=== PATIENT | male | born 1960 | race Caucasian/White ===

== ENCOUNTER 2017-04-12 10:45 | Inpatient (IN) ==
[2017-04-12] MEDS ORDERED: XOPENEX NEB INH ONE (11:04)
[2017-04-12] MEDS ORDERED: SOLU-MEDROL IV ONE (11:05)
[2017-04-12] MEDS ORDERED: ATROVENT NEB INH ONE (11:05)
[2017-04-12] MEDS ORDERED: NS NEB INH SCH (11:15)
[2017-04-12 11:24] LABS: BE 2.4 mmoll (-3.0-3.0); BLOOD TYPE ARTERIAL; METHB 0.9 % (0.0-1.5); O2(CT) 18.2 mL/dL (15.0-23.0); PCO2(98.6) 32 mmHg (35-45); PO2(98.6) 68 mmHg (60-100); SAMPLE BLOOD; SAO2 96.9 % (95.0-100.0)
[2017-04-12 11:25] LABS: MODALITY ROOM AIR
[2017-04-12 11:47] LABS: MANUAL DIFF NEEDED? NO
--- NOTE | 2017-04-12 11:50 | Diag Imaging Result Doc PS360 ---
EXAM: CHEST-2 VIEWS - 04/12/2017 HISTORY: dyspnea TECHNIQUE: Chest two views COMPARISON: Portable exam of 04/10/2017 FINDINGS: Heart size appears within normal limits. There are increased opacities at the bilateral bases and there has been development of small bilateral pleural effusions. The upper lungs remain essentially clear. There is no pneumothorax identified. IMPRESSION: Increased opacities at bilateral lung bases with development of small bilateral pleural effusions. These may relate to pulmonary edema or pneumonia. Correlation with clinical evaluation is recommended. Electronically signed by Osei Almonte 04/12/2017 11:47 AM
[2017-04-12 11:51] LABS: BASO% 0.3 % (0.0-0.8); EOS# 0.03 X1000 (0.0-0.7); EOS% 0.3 % (0.0-10.0); HEMATOCRIT 37.8 % (42.0-52.0); HEMOGLOBIN 13.7 g/dL (14.0-18.0); LYMPH# 2.24 X1000 (1.2-3.4); LYMPH% 23.8 % (20.5-51.1); MCH 37.5 PG (27-31); MCHC 36.2 g/dL (33-37); MCV 103.6 FL (81-99); MONO# 0.61 X1000 (0.11-0.59); MONO% 6.5 % (1.7-9.3); MPV 9.9 FL (7.4-10.4); NEUT% 69.1 % (42.2-75.2); PLT 184 X1000 (130-400); RBC 3.65 XMIL (4.7-6.1)
[2017-04-12 11:52] LABS: INR 0.96; PROTIME 10.1 Seconds (9.2-11.7); PTT 26.1 Seconds (22.0-36.0)
[2017-04-12] MEDS ORDERED: LASIX IV ONE (11:52)
--- NOTE | 2017-04-12 12:02 | PROVIDER DOCUMENTATION ---
This chart was entered by Ruby Mccurdy Scribe, acting as scribe for Milo Salinas MD. HPI-Respiratory General - General Chief Complaint: Chest Pain Stated Complaint: SOB,COPD Time Seen by Provider: 04/12/17 11:00 Source: patient Allergies/Adverse Reactions: Patient Allergies Allergy/AdvReac Type Severity Reaction Status Date / Time No Known Allergies Allergy Verified 04/10/17 06:27 Home Medications: Home Medication List Medication Instructions Recorded Confirmed Last Taken Type Dm Hb/PE/Acetaminophen/Chlorph 237 ml PO TID #1 oral.susp 04/10/17 Unknown Rx [Adlt Robitussin Rrmfa-Bmgo-Ipl] Ipratropium [place] Neb [Atrovent 0.5 mg .SEE ORDER BID #1 neb 04/10/17 Unknown Rx Neb] - History of Present Illness-Resp Nature of Presenting Problem: PT is a 57 year old male who came to the ED with a cc of SOB and being in the ED three times in the last 24 hours. Pt is a smoker. Quality of Pain: reports: none Severity in ED: reports: mild Onset/Duration: reports: 3 days ago Timing: reports: still present Cough Quality/Degree: reports: moderate Episode Frequency: frequent episodes Modifying Factors: improves with: nothing Associated Symptoms: reports: shortness of breath, short of breath, wheezing Similar Symptoms Previously?: Yes Recently seen or treated by another doctor?: Yes Review of Systems - Adult - REVIEW OF SYSTEMS - ADULT Constitutional: denies: chills, fever Eyes: reports: no symptoms reported Ears, Nose, Mouth & Throat: reports: no symptoms reported Cardiovascular: denies: chest pain, syncope Respiratory: reports: cough, shortness of breath, wheezing. denies: dyspnea on exertion, hemoptysis Gastrointestinal: denies: diarrhea, frequent heartburn, vomiting Genitourinary: reports: no symptoms reported Musculoskeletal: reports: muscle weakness. denies: joint swelling, neck pain Integumentary: reports: no symptoms reported Neurological: reports: no symptoms reported Psychiatric: reports: no symptoms reported Endocrine: reports: no symptoms reported Hematologic/Lymphatic: reports: no symptoms reported Allergic/Immunologic: reports: no symptoms reported All Other Systems: Reviewed and Negative Past History - Adult - PAST MEDICAL HISTORY-ADULT Review of Records: reports: Old Records Reviewed, Nursing Assessment Review Major Childhood Illnesses: reports: denies history Cardiovascular: reports: denies history Respiratory: reports: denies history Gastrointestinal: reports: denies history Obstetrical/Gynecological: reports: denies history Genitourinary: reports: denies history Musculoskeletal: reports: denies history Neurological: reports: denies history Psychiatric: reports: denies history Endocrine/Immune: reports: denies history Other Conditions: reports: denies history - PRIOR SURGERIES/PROCEDURES Surgical/Procedure History: reports: none - IMMUNIZATION STATUS Childhood Immunizations: See Nurse Assessment Flu Vaccine: See Nurse Assessment - FAMILY HISTORY Family History: reviewed, not pertinent - SOCIAL HISTORY Smoking: cigarettes Provider spent 3-5 mins advising pt. on dangers of tobacco.: Discussed manners to quit use, and f/u contacts for add'l counseling. Physical Exam-General - PHYSICAL EXAM-ADULT Initial Vital Signs Reviewed: Yes - CONSTITUTIONAL General Appearance: mild distress, thin - EYES Eyes: PERRL/EOMI, pink conjunctivae - HEAD, EARS, NOSE, MOUTH & THROAT HENMT: normocephalic/atraumatic, moist mucous membranes - NECK Neck: non-tender, full range of motion - RESPIRATORY Respiratory: crackles, wheezing - CARDIOVASCULAR Cardiovascular: normal peripheral pulses, regular rate, rhythm - GASTROINTESTINAL (ABDOMEN) Abdominal Exam: normal bowel sounds, non tender, soft - MUSCULOSKELETAL Back Exam: normal inspection, no CVA tenderness Extremity: normal range of motion, non-tender - SKIN Integumentary: normal color, normal turgor - NEUROLOGIC Neurologic: grossly normal - PSYCHIATRIC Psych/Mental Status: normal mood/affect, normal thought content, normal thought process, oriented x 3 Progress - PLAN OF CARE/RESULTS Progress/Plan/Lab Results: Vital Signs - 8 hr 04/12/17 10:49 04/12/17 11:26 Temperature 97.7 F Pulse Rate 141 H 141 H Respiratory Rate 22 22 Blood Pressure 131/109 O2 Sat by Pulse Oximetry 99 Laboratory Results - last 24 hr 04/12/17 04/12/17 04/12/17 11:05 11:25 11:25 WBC RBC Hgb Hct MCV MCH MCHC RDW Std Deviation Plt Count MPV Neut % (Auto) Lymph % (Auto) Harvey % (Auto) Eos % (Auto) Baso % (Auto) Neut # (Auto) Lymph # (Auto) Harvey # (Auto) Eos # (Auto) Baso # (Auto) PT 10.1 INR 0.96 PTT (Actin FS) 26.1 Specimen Type ARTERIAL pH 7.50 H pCO2 32 L pO2 68 HCO3 26.7 H Base Excess 2.4 Oxyhemoglobin 92.3 L ABG O2 Sat (Calculated) 18.2 ABG O2 Saturation 96.9 ABG Carboxyhemoglobin 3.90 H ABG Methemoglobin 0.9 Total Hemoglobin 14.0 Lactate 1.60 Blood Gas Modality ROOM AIR FiO2 % 21.0 Troponin T < 0.010 04/12/17 11:25 WBC 9.40 RBC 3.65 L Hgb 13.7 L Hct 37.8 L MCV 103.6 H MCH 37.5 H MCHC 36.2 RDW Std Deviation 13.0 Plt Count 184 MPV 9.9 Neut % (Auto) 69.1 Lymph % (Auto) 23.8 Harvey % (Auto) 6.5 Eos % (Auto) 0.3 Baso % (Auto) 0.3 Neut # (Auto) 6.49 Lymph # (Auto) 2.24 Harvey # (Auto) 0.61 H Eos # (Auto) 0.03 Baso # (Auto) 0.03 PT INR PTT (Actin FS) Specimen Type pH pCO2 pO2 HCO3 Base Excess Oxyhemoglobin ABG O2 Sat (Calculated) ABG O2 Saturation ABG Carboxyhemoglobin ABG Methemoglobin Total Hemoglobin Lactate Blood Gas Modality FiO2 % Troponin T Orders Category Date Time Status IV Insertion ORDERED Care 04/12/17 11:01 Completed CHEST-2 VIEWS [RAD] Stat Exams 04/12/17 11:03 Completed ABG [RESP] Routine Lab 04/12/17 11:05 Results CBC WITH DIFF [HEME] Stat Lab 04/12/17 11:25 Completed COMPREHENSIVE METABOLIC PANEL [CHEM] Stat Lab 04/12/17 11:25 Received PRO B-NATRIURETIC PEPTIDE Stat Lab 04/12/17 11:25 Received PROTIME WITH INR [COAG] Stat Lab 04/12/17 11:25 Completed PTT [COAG] Stat Lab 04/12/17 11:25 Completed TROPONIN T Stat Lab 04/12/17 11:25 Completed Furosemide [Lasix] Med 04/12/17 11:52 Discontinued 60 mg IV NOW ONE Ipratropium [place] Neb [Atrovent Neb] Med 04/12/17 11:05 Discontinued 0.5 mg INH NOW ONE Levalbuterol Neb [Xopenex Neb] Med 04/12/17 11:04 Discontinued 1.25 mg INH NOW ONE Methylprednisolone Sod Succ [Solu-Medrol] Med 04/12/17 11:05 Discontinued 125 mg IV NOW ONE Sodium Chloride 0.9% Neb [Ns Neb] Med 04/12/17 11:15 Active 5 ml INH DIRECTED Aerosol Treatments Routine Oth 04/12/17 11:04 Completed Aerosol Treatments Stat Oth 04/12/17 11:04 Completed EKG [EKG] Stat Ther 04/12/17 10:53 Ordered Result Diagrams: 04/12/17 11:25 - EKG 1 Time of EKG reading by physician:: 10:49 EKG Read and Signed by:: Milo Salinas EKG Interpretation (*Must complete 3 of following elements*): Abnormal Rate: 134 (w premature ventricular or aberrantly conducted complexes ) Rhythm: atrial fibrillation w rapid ventricular response Departure - Departure Date of Disposition Decision: 04/12/17 Time of Disposition Decision: 12:01 DIAGNOSIS: COPD (chronic obstructive pulmonary disease), CHF (congestive heart failure) Disposition: ADMITTED INPATIENT 09 Certified Medical Emergency: Emergent Condition: Stable Referrals and Follow-Ups: None,PCP [Primary Care Provider] - - Critical Care Note This patient required my direct & personal management of CC.: No Attestation - Physician/ DALIA Attestation The physician spent face to face time with patient:: Yes Advanced Practice Provider documentation review:: Supervising physician onsite and consulted in the evaluation and care of this patient. The physician did have a face to face encounter with the patient. This chart was documented by the indicated scribe, (Ruby Mccurdy Scribe) and accurately reflects the services I performed and decisions made by Rita beltre Christophe I, MD, as attested by the provider's signature.
[2017-04-12 12:09] LABS: AGAP 15; ALBUMIN 4.2 g/dL (3.5-5.0); ALKALINE PHOSPHATASE 58 U/L (32-122); BUN 11 mg/dL (8-22); CALCIUM 9.1 mg/dL (8.8-10.2); CHLORIDE 102 mmol/L (98-107); COSMO 285; GOT 39 U/L (10-34); GPT 33 U/L (10-44); POTASSIUM 3.7 mmol/L (3.5-5.1); SODIUM 143 mmol/L (136-145); TCO2 26 mmol/L (25-35); TOTAL BILIRUBIN 0.79 mg/dL (0.20-1.00); TOTAL PROTEIN 7.6 g/dL (6.3-8.3)
[2017-04-12] MEDS: ROCEPHIN 1 GM/NS 1 GM/50 ML IVPB IV SCH (13:02)
[2017-04-12] MEDS ORDERED: DUONEB (A & A) INH PRN (14:21)
[2017-04-12] MEDS ORDERED: SODIUM CHLORIDE 0.9% INJ SCH (14:21)
--- NOTE | 2017-04-12 14:38 | HISTORY AND PHYSICAL ---
PRIMARY CARE PHYSICIAN: Unknown. CHIEF COMPLAINT: Shortness of breath. 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 The patient reports that he was here for shortness of breath 3 days ago in the ER, and he was offered to be admitted but he declined. He reports approximately 1-2 weeks ago he noticed progressive shortness of breath that was getting progressively worse. He also noticed some sensation of palpitation like his heart was racing and also he noticed some chest tightness. He noticed that was getting better when he received breathing treatments. He denies any fevers or chills. He reports coughing whitish and greenish sputum. Here in the ER he was found to have very short of breath. He also was found to have a new onset atrial fibrillation with heart rate of 140s. The patient is going to be admitted to the hospital for further evaluation and treatment. PAST MEDICAL HISTORY: The patient reports that 15 years ago he developed endocarditis and he got a residual mitral valve tear. He was supposed to have a followup with a interior design program chair but he never went to see anybody. PAST SURGICAL HISTORY: None. ALLERGIES: No known drug allergies. SOCIAL HISTORY: He used to drink vodka and lastly beer 1 case per day but he reports that he quit 1 month ago. He smokes 1-2 packs per day for the last 3 years. He is not using any drugs anymore. He quit taking Lortab 2 years ago. He reports using cocaine but he quit in the 80s. 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 Patient lives alone. He is . REVIEW OF SYSTEMS: Patient reports having episodes of paroxysmal nocturnal dyspnea. Patient unable to lie in a flat position for sleeping and he was able to sleep well for the last 2-3 days. He noticed mild swelling in both lower extremities. PHYSICAL EXAMINATION: VITALS: Temperature 97.7 degrees, heart rate 141, respiratory rate 22, blood pressure 131/109, O2 saturations 99% on room air. GENERAL EXAMINATION: This is a 57-year-old male, lying in bed, in no acute distress. HEENT: Head is normocephalic and atraumatic. Anicteric sclerae and pale conjunctivae. Mucous membranes moist. NECK: Supple. No JVD noted. No carotid bruits. No lymphadenopathy. No thyromegaly. CARDIOVASCULAR EXAM: S1, S2 heard. Irregularly irregular heart rhythm. Tachycardic. There is a systolic murmur in the mitral area 3/6. RESPIRATORY: Decreased breath sounds globally with some prolonged respiratory phase. Mild wheezing in both bases. No crackles noted. Patient is not using any accessory muscles or having work of breathing. ABDOMEN: Soft, nontender to palpation. Bowel sounds present. No organomegaly. EXTREMITIES: No clubbing or cyanosis. Mild edema of 1+ in both lower extremities. Peripheral pulses present in both legs. NEUROLOGICAL EXAM: Patient alert and oriented x3. Moves 4 extremities. Cranial nerves 2-12 grossly normal. LABORATORY DATA: Hemoglobin 13.7, hematocrit 37.8, with ABG 7.5, pCO2 32, and BMP unremarkable with proBNP of 2765. ASSESSMENT AND PLAN: 1. Chronic obstructive pulmonary disease exacerbation. Patient is going to be admitted to the hospital. He is going to be provided DuoNeb every 4 hours. Also he is going to be provided steroids, in this case, Solu-Medrol 40 mg IV b.i.d., and also ceftriaxone for any possible infection. Because of his progressive history of chronic obstructive pulmonary disease and patient was not mobile, I prefer to check angiogram of the pulmonary arteries to rule out any pulmonary embolism and also to check the anatomy of the lungs. 2. 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 Patient reports that 15 years ago he had a really bad tooth infection that finally became bacteremia and he ended up having endocarditis. He had a mild mitral valve regurgitation and he was supposed to follow with Cardiology but he never did that. We are going to check an echocardiogram. We are going to consult Cardiology. 3. New onset atrial fibrillation. I think this condition is secondary to this mitral valve problem. We are going to start this patient on Cardizem drip. We are going to start anticoagulation on this patient. We will consult Cardiology. 4. Further recommendations to follow according to the clinical situation of the patient. cc: Harsh Lira MD [facility]
[2017-04-12] MEDS: CARDIZEM 100 MG/NS 100 MG/100 ML IVPB IV SCH (14:57)
[2017-04-12] MEDS: NS 1,000 ML IV SCH (14:57)
[2017-04-12] MEDS: PROTONIX IV SCH (14:57)
--- NOTE | 2017-04-12 14:57 | Diag Imaging Result Doc PS360 ---
EXAM: ANGIOGRAM/PULMONARY ARTERIES - 04/12/2017 HISTORY: suspected PE TECHNIQUE: With intravenous contrast. Axial, reformatted coronal comment and reformatted 3-D rotating MIP images. Dose reduction protocol. COMPARISON: None. FINDINGS: There are no filling defects identified in the pulmonary arteries. There is no indication of aortic dissection. There is cardiomegaly. There are mild COPD changes. There are mild interstitial edema, ill-defined infiltrates at the lung bases, small bilateral pleural effusions. There is no pneumothorax seen. IMPRESSION: No evidence of pulmonary embolism. Findings which are suggestive of mild pulmonary edema/congestive heart failure. Basilar pneumonia cannot be entirely excluded. Mild emphysematous changes. Electronically signed by Osei Almonte 04/12/2017 2:55 PM
[2017-04-12] MEDS: SOLU-MEDROL IV SCH ×2 (15:12→20:04)
[2017-04-12] MEDS: DUONEB (A & A) INH SCH ×3 (15:34→23:35)
[2017-04-12] MEDS: NICODERM PATCH TD SCH (15:36)
[2017-04-13] MEDS: NS 1,000 ML IV SCH ×2 (02:46→17:07)
[2017-04-13] MEDS: CARDIZEM 100 MG/NS 100 MG/100 ML IVPB IV SCH ×2 (02:46→16:32)
[2017-04-13] MEDS: DUONEB (A & A) INH SCH ×6 (03:20→23:15)
[2017-04-13 03:53] LABS: ALLEN TEST YES; DRAW SITE R RADIAL
[2017-04-13] MEDS ORDERED: MOTRIN PO ONE (05:15)
[2017-04-13 05:20] LABS: MANUAL DIFF NEEDED? NO
[2017-04-13 05:24] LABS: BASO% 0.1 % (0.0-0.8); IMM GRAN# 0.02 X1000 (0.0-0.04); IMM GRAN% 0.2 % (0.0-0.5); LYMPH# 1.21 X1000 (1.2-3.4); LYMPH% 13.4 % (20.5-51.1); MCH 35.7 PG (27-31); MCHC 35.1 g/dL (33-37); MCV 101.6 FL (81-99); MONO# 0.48 X1000 (0.11-0.59); MONO% 5.3 % (1.7-9.3); MPV 9.8 FL (7.4-10.4); PLT 177 X1000 (130-400); RBC 3.64 XMIL (4.7-6.1)
[2017-04-13 05:59] LABS: AGAP 16; BUN 19 mg/dL (8-22); CALCIUM 8.8 mg/dL (8.8-10.2); CHLORIDE 100 mmol/L (98-107); COSMO 289; POTASSIUM 3.8 mmol/L (3.5-5.1); SODIUM 142 mmol/L (136-145); TCO2 26 mmol/L (25-35)
[2017-04-13] MEDS ORDERED: PNEUMOVAX 23 IM ONE (07:00)
[2017-04-13] MEDS: NICODERM PATCH TD SCH (08:03)
[2017-04-13] MEDS: SOLU-MEDROL IV SCH ×2 (08:03→20:17)
[2017-04-13] MEDS ORDERED: LOVENOX SUBQ SCH (08:45)
[2017-04-13] MEDS: ZITHROMAX 500 MG/NS 500 MG/250 ML IVPB IV SCH (10:07)
[2017-04-13] MEDS: LASIX IV SCH ×2 (10:07→20:17)
[2017-04-13] MEDS ORDERED: LOVENOX SUBQ ONE (10:45)
[2017-04-13] MEDS: ROCEPHIN 1 GM/NS 1 GM/50 ML IVPB IV SCH (12:17)
[2017-04-13] MEDS: PROTONIX IV SCH (12:17)
[2017-04-13] MEDS: CARDIZEM PO SCH ×2 (12:18→17:07)
[2017-04-13] MEDS: VITAMIN B-1 PO SCH (12:18)
--- NOTE | 2017-04-13 18:04 | CONSULTATION ---
DATE OF CONSULTATION: 04/13/2017 IMPRESSION: 1. Dyspnea. 2. Chronic obstructive pulmonary disease. 3. Acute congestive heart failure suggested. 4. Mitral regurgitation. 5. Previous endocarditis of mitral valve fifteen years ago associated with dental infection. 6. Chronic cigarette use. Recently discontinued. 1. Alcoholism. Patient has been sober 30 days. He has attempted to abstain on 3 occasions in the past, but has gone back to drinking. 2. 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 3. Atrial fibrillation, new onset. The patient has history of episodes of palpitations in the past, but has now demonstrated persistent atrial fibrillation. RECOMMENDATIONS: 1. Diuresis. 2. Control heart rate with intravenous Cardizem. 3. Anticoagulate with Lovenox initially. 4. Echocardiography to reassess mitral regurgitation. 5. Treat chronic obstructive pulmonary disease as well. 6. Followup chest x-ray. 7. Patient counseled at length regarding need for maintenance of sobriety. 8. Cessation of tobacco use also discussed at length with the patient. Suggest utilizing nicotine patch Supplanted with more rapid nicotine delivery system when he goes home, such as nicotine lozenges, nicotine gum, or even Vape device. HISTORY: This 57-year-old white male with past history of longstanding cigarette use, alcoholism, previous endocarditis of mitral valve fifteen years ago in setting of dental infection and mitral regurgitation was admitted with recurrent dyspnea. He relates he has been having problems with progressive dyspnea over the past week. He might note some chest pressure if he was lying down. He also noted persistent palpitations. He has had episodic palpitations in the past. He has history of alcoholism, but discontinued alcohol a month ago. He just recently stopped smoking. He came to the emergency room with dyspnea symptoms a few days ago and was treated with bronchodilator and corticosteroids. He is noted to be in atrial fibrillation with rapid ventricular rate and was administered medications to control his heart rate. He started to feel better in the emergency room and chose not to be admitted when this was advised. He went home and continued to feel better. However, within 24 hours, he had resume cigarette use and started progressive dyspnea symptoms yet again. With worsening dyspnea, he finally came back in and accepted admission. He is again noted to be in atrial fibrillation with rapid ventricular rate and has been started on intravenous Cardizem for rate control. Clinical findings suggested both COPD and congestive heart failure. He is being treated with bronchodilators and being diuresed. Cardiology consultation requested. Echocardiography is pending. PAST MEDICAL HISTORY: 1. COPD. 2. Mitral regurgitation. 3. Previous endocarditis mitral valve fifteen years ago in association with dental abscess. 4. Alcoholism. Patient has been sober for 30 days now. 5. History of asbestos exposure in the past related to his work. PAST SURGICAL HISTORY: None. ALLERGIES: He has no known drug allergies. 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 He previously drank vodka and lastly drink a case of beer a day. He discontinued alcohol use 1 month ago and is attending AA meetings several times a week. He has a sponsor. He has smoked 1-2 packs of cigarettes per day. He discontinued cigarette use just a few days ago. He has remote history of using cocaine. He is . He has a son who is currently attending [employer]. FAMILY HISTORY: Positive for alcoholism. REVIEW OF SYSTEMS: Pulmonary: Noteworthy for dyspnea and some nonproductive cough. Gastrointestinal: Noncontributory. Constitutional: Noncontributory. There has been no fever or shaking chills. Remainder of review of systems negative/noncontributory beyond history present illness with 14 total systems reviewed. PHYSICAL EXAMINATION: General: Reveals a middle-aged male in no distress. Vital signs: Blood pressure 110/75, heart rate 91 and regular, with ECG monitor showing atrial fibrillation with controlled rate. Oxygen saturation 96% on room air. HEENT: Extraocular movements appear intact. Mucous membranes are moist. Neck: Supple without discernible jugular venous distention. There are no carotid bruits. Chest: Auscultation of the chest reveals bibasilar late inspiratory crackles which were somewhat fine in nature. Cardiac: Reveals an irregular rate and rhythm with a grade 2/6 holosystolic murmur at the left ventricular apex which radiates to the axilla. No gallop could be appreciated. Abdomen: Soft, nontender. Extremities: Without edema. Neurologic: Reveals him to be alert, fully oriented. Speech is fluent. Moves all 4 extremities equally well. Skin: Warm and dry. Psychiatric: Reveals mood to be appropriate. ECG demonstrates atrial fibrillation with heart rate of 120 beats per minute. There are occasional premature ventricular aberrantly conducted complexes. Abnormal precordial R-wave progression demonstrated. Cannot rule out previous anterior infarct of undetermined age. cc: Yousuf Paige MD
--- NOTE | 2017-04-13 18:33 | PROGRESS NOTE ---
DATE: 04/13/2017 SUBJECTIVE: Patient reports feeling less short of breath. Denies any chest discomfort. No fever or chills reported. OBJECTIVE: Vital Signs: Temperature 97.9 degrees, with the heart rate 91, respiratory rate 18, blood pressure 110/75. O2 saturation 98% on room air. PHYSICAL EXAMINATION: General: This is a 57-year-old male, lying in bed, in no acute distress. HEENT: Head is normocephalic, atraumatic. Anicteric sclerae and pale conjunctivae. Mucous membranes moist. Neck: Supple. No JVD noted. No carotid bruits. No lymphadenopathy. No thyromegaly. Cardiovascular: S1, S2 heard. Irregularly irregular heart rhythm. Tachycardic, no murmurs, gallops or rubs. Respiratory: Decreased breath sounds globally with prolonged respiratory phase. Mild crackles noted. The patient is not using any accessory muscles or having work of breathing. Abdomen: Soft, nontender to palpation. Bowel sounds present. No organomegaly. Extremities: No clubbing, cyanosis, or edema. Peripheral pulses present in both legs. Neurological: Patient alert oriented x3. Moves 4 extremities. LABORATORY DATA: CBC and BMP are completely unremarkable and proBNP from yesterday is 2765. ASSESSMENT AND PLAN: 1. Chronic obstructive pulmonary disease exacerbation. Patient is on DuoNeb every 4 hours, as well as Solu-Medrol 40 mg IV b.i.d., but now is not requiring any oxygen. 2. Bibasilar pneumonia finding showed in the x-ray in the CT angio of the chest. We are going to continue with ceftriaxone and azithromycin. Patient is not spiking any fever and white cell count is within normal limits. 3. Mitral valve 2 years ago. There is no pruritus. Echocardiogram and also cardiology consultation are still pending. 4. New onset atrial fibrillation. I think this condition is secondary to his mitral valve problem. We will continue with Cardizem drip as previous at 7.5 mg/hour. We will continue with the same management. 5. Deep vein thrombosis prophylaxis with Lovenox. 6. Further recommendations to follow according to the clinical situation. cc: Harsh Lria MD
[2017-04-13] MEDS: LOVENOX SUBQ SCH (21:06)
--- NOTE | 2017-04-13 21:57 | ECHO REPORT ---
ORDER DATE: 04/12/2017 MEASUREMENTS: Left ventricular end-diastolic diameter 6.4 and systolic diameter 4.3, posterior wall thickness 1, septal thickness 0.6, left atrium 4.5, aortic root 3.2. SUMMARY: 1. Adequate quality study. 2. Aortic valve is trileaflet and opens normally on 2-dimensional images. Mitral valve is abnormal with dense echodensity adherent near the tip of the posterior mitral leaflet measuring 1.4 x 0.3 cm and flopping into left atrium during diastole consistent with disrupted portion of posterior mitral leaflet secondary to previous endocarditis patient known to have had. There is associated moderate to severe mitral regurgitation. Tricuspid valve without structural abnormality with mild to moderate tricuspid regurgitation. Estimated systolic PA pressure by Doppler is 50 mmHg. Pulmonic valve is without structural abnormality. Aortic root is normal size. 3. Mild to moderate left ventricular enlargement demonstrated with normal wall thickness. Estimated left ventricular ejection fraction appears to be at least 65%. No regional wall motion abnormalities are evident. Left atrium is [id number] enlarged. Right atrium is mildly enlarged. The right ventricle is normal size with normal right ventricular systolic function. 4. No pericardial effusion. 5. Appearance of inferior vena cava suggests normal central venous pressure. 6. Atrial fibrillation during study. CONCLUSIONS: 1. Abnormal mitral valve with what appears to be disrupted portion of posterior mitral leaflet secondary to previous endocarditis and associated moderate to severe mitral regurgitation. 2. Mild to moderate tricuspid regurgitation with moderate pulmonary hypertension by Doppler. 3. Mild to moderate left ventricular enlargement with normal left ventricular ejection fraction. 4. Biatrial enlargement. 5. Appearance of inferior vena cava suggests elevated central venous pressure. 6. Atrial fibrillation during study. cc: MD Harsh Marvin MD
[2017-04-14] MEDS: DUONEB (A & A) INH SCH ×5 (03:05→22:27)
[2017-04-14 05:11] LABS: MANUAL DIFF NEEDED? NO
[2017-04-14 05:19] LABS: BASO% 0.1 % (0.0-0.8); HEMATOCRIT 34.8 % (42.0-52.0); HEMOGLOBIN 12.1 g/dL (14.0-18.0); IMM GRAN# 0.04 X1000 (0.0-0.04); IMM GRAN% 0.4 % (0.0-0.5); LYMPH# 1.49 X1000 (1.2-3.4); LYMPH% 13.4 % (20.5-51.1); MCH 36.1 PG (27-31); MCHC 34.8 g/dL (33-37); MCV 103.9 FL (81-99); MONO% 4.5 % (1.7-9.3); MPV 10.1 FL (7.4-10.4); NEUT% 81.6 % (42.2-75.2); PLT 197 X1000 (130-400); RBC 3.35 XMIL (4.7-6.1)
[2017-04-14 05:36] LABS: AGAP 13; BUN 22 mg/dL (8-22); CALCIUM 8.6 mg/dL (8.8-10.2); CHLORIDE 102 mmol/L (98-107); COSMO 289; POTASSIUM 3.5 mmol/L (3.5-5.1); SODIUM 141 mmol/L (136-145); TCO2 26 mmol/L (25-35)
[2017-04-14] MEDS: CARDIZEM 125/NS 125 MG/125 ML IVPB IV SCH ×2 (05:46→18:26)
[2017-04-14] MEDS: NS 1,000 ML IV SCH ×2 (05:46→19:05)
--- NOTE | 2017-04-14 06:46 | EKG Report ---
Test Performed on : 04/12/2017 10:49:58 AM Test Reason : SOB Blood Pressure : / mmHG Vent. Rate : 134 BPM Atrial Rate : 141 BPM P-R Int : 000 ms QRS Dur : 090 ms QT Int : 308 ms P-R-T Axes : 000 084 030 degrees QTc Int : 459 ms Atrial fibrillation. with rapid ventricular response. with premature ventricular or aberrantly condu cted complexes. Abnormal ECG When compared with ECG of 10-APR-2017 06:00, (Unconfirmed) Nonspecific T wave abnormality V6 Poor R wave progression in V1-V2-V3 No significant change was found Confirmed by Erik Witt DO ([id number]) on 04/14/2017 5:21:38 PM
[2017-04-14] MEDS: LASIX IV SCH ×2 (08:30→15:54)
[2017-04-14] MEDS: SOLU-MEDROL IV SCH ×2 (08:30→20:25)
[2017-04-14] MEDS: LOVENOX SUBQ SCH ×3 (08:30→20:25)
[2017-04-14] MEDS: VITAMIN B-1 PO SCH (08:30)
[2017-04-14] MEDS: NICODERM PATCH TD SCH (08:30)
[2017-04-14] MEDS: ZITHROMAX 500 MG/NS 500 MG/250 ML IVPB IV SCH (08:30)
[2017-04-14] MEDS: CARDIZEM PO SCH (08:30)
[2017-04-14] MEDS ORDERED: LANOXIN IV ONE ×2 (08:46→14:58)
--- NOTE | 2017-04-14 09:36 | PROGRESS NOTE ---
DATE: 04/14/2017 SUBJECTIVE: Patient reports feeling definitely much better with less shortness of breath. No chest pain. No chest discomfort. No fever or chills reported. OBJECTIVE: Vital Signs: Temperature 98.7 degrees, heart rate 96, respiratory rate 21, blood pressure 112/77, O2 saturation 98% on room air. General Examination: This is a 57-year-old, male, lying in bed, in no acute distress. HEENT: Head is normocephalic and atraumatic. Anicteric sclerae and pale conjunctivae. Mucous membranes moist. Neck: Supple. No JVD noted. No carotid bruits. No lymphadenopathy. No thyromegaly. Cardiovascular Examination: S1 and S2 heard. Irregularly irregular heart rhythm and tachycardic. No murmurs, gallops , or rubs. Respiratory Examination: Decreased breath sounds globally with prolonged respiratory phase. Mild crackles noted in both bases with mild wheezing as well but definitely much better in comparing with the previous days. Patient is not using any accessory muscles or having work of breathing. Abdomen: Soft, nontender to palpation. Bowel sounds present. No organomegaly. Extremities: No clubbing, cyanosis, or edema. Peripheral pulses present in both legs. Neurological Examination: Patient is alert and oriented x3. Moves 4 extremities. Laboratory Data: White cell count 11.12, hemoglobin 12.1, hematocrit 34.8, platelets 197,000. BMP is completely unremarkable except mild elevation of glucose at 170. ASSESSMENT AND PLAN: 1. Chronic obstructive pulmonary disease exacerbation. Patient is on DuoNeb every 4 hours as well as Solu-Medrol. We are going to decrease the dose of Solu-Medrol 40 to 20 mg intravenous twice a day. The patient is on room air. White cell count is a little bit elevated because of the steroids. 2. Bibasilar pneumonia. This is what the CT angiogram of the chest suggest. In any case, we will continue with ceftriaxone and azithromycin. No fever noted and mild elevation of white cell count related to steroid use. We will continue with the same management. 3. Mitral valve regurgitation. The last echocardiogram done here shows moderate mitral regurgitation. We will talk with cardiology and definitely this patient will need cardiac surgery eventually in the future. At this point, we are going to continue with diuretics. 4. New onset atrial fibrillation. Patient is on Cardizem drip. We are planning to switch it to oral today. We will see how this patient does. Regarding anticoagulation for this condition he will be on Eliquis as per cardiology recommendation. 5. Deep venous thrombosis prophylaxis. Patient is actually fully anticoagulated with Lovenox 1 mg/kg. We will continue with same management. Overall this patient is doing ok. If we are able to control heart rate with PO medications and ok with cardiology he will be discharged tomorrow. Dr. Paige will follow him in the office upon discharge. cc: Harsh Lira MD MTDD
[2017-04-14] MEDS: DIOVAN PO SCH (09:42)
[2017-04-14] MEDS: ROCEPHIN 1 GM/NS 1 GM/50 ML IVPB IV SCH (12:55)
[2017-04-14] MEDS: PROTONIX IV SCH (12:55)
[2017-04-14] MEDS ORDERED: CARDIZEM PO SCH (15:00)
[2017-04-14] MEDS: LOPRESSOR PO SCH ×2 (15:55→20:25)
--- NOTE | 2017-04-14 16:06 | PROGRESS NOTE ---
DATE: 04/14/2017 SUBJECTIVE: Patient relates feeling better with less dyspnea. There has been no chest discomfort. OBJECTIVE: Vital Signs: Blood pressure 119/69. Heart rate 107 and irregular with ECG monitor showing atrial fibrillation. Neck: There is no significant jugular venous distention. Chest: Auscultation of the chest reveals a few inspiratory crackles in the bases bilaterally. Cardiac: Reveals an irregular rate and rhythm with grade 2/6 holosystolic murmur at the apex. Gallop could not be appreciated. Extremities: Without edema. LABORATORY DATA: Includes BUN 22, creatinine 0.7. IMPRESSION: 1. Acute congestive heart failure improving with diuresis. 2. 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 Left atrial enlargement, congestive heart failure and development of atrial fibrillation are suggesting that mitral regurgitation may in fact be more hemodynamically important. 3. Chronic obstructive pulmonary disease with exacerbation. 4. Previous endocarditis mitral valve fifteen years ago in association with dental infection. 5. Very poor dentition. 6. Chronic cigarette use. Recently discontinued. 7. Alcoholism. Patient has been sober 30 days. RECOMMENDATIONS: 1. Continue diuresis. 2. Add low-dose beta kelsea and utilize digoxin primarily for rate control to facilitate weaning off Cardizem. 3. Anticoagulate. We will try to use Eliquis as permitted. 4. Low-dose angiotensin receptor blocking agent. 5. Patient ultimately may need further evaluation for possible mitral valve surgery in the future. This was discussed with the patient. cc: Yousuf Paige MD
[2017-04-15] MEDS: DUONEB (A & A) INH SCH ×6 (00:26→20:01)
[2017-04-15] MEDS: LASIX IV SCH (03:42)
[2017-04-15] MEDS: TYLENOL PO PRN (03:47)
[2017-04-15 05:07] LABS: MANUAL DIFF NEEDED? NO
[2017-04-15 05:18] LABS: BASO% 0.1 % (0.0-0.8); HEMATOCRIT 41.9 % (42.0-52.0); HEMOGLOBIN 14.5 g/dL (14.0-18.0); IMM GRAN% 0.7 % (0.0-0.5); LYMPH# 2.27 X1000 (1.2-3.4); MCH 35.9 PG (27-31); MCHC 34.6 g/dL (33-37); MCV 103.7 FL (81-99); MONO# 0.72 X1000 (0.11-0.59); MONO% 5.4 % (1.7-9.3); NEUT% 76.8 % (42.2-75.2); PLT 247 X1000 (130-400); RBC 4.04 XMIL (4.7-6.1)
[2017-04-15 06:05] LABS: AGAP 12; BUN 25 mg/dL (8-22); CHLORIDE 99 mmol/L (98-107); COSMO 286; POTASSIUM 4.1 mmol/L (3.5-5.1); SODIUM 140 mmol/L (136-145); TCO2 29 mmol/L (25-35)
[2017-04-15] MEDS: NS 1,000 ML IV SCH (08:14)
[2017-04-15] MEDS: ZITHROMAX 500 MG/NS 500 MG/250 ML IVPB IV SCH (08:14)
[2017-04-15] MEDS: LOVENOX SUBQ SCH (08:15)
[2017-04-15] MEDS: NICODERM PATCH TD SCH (08:15)
[2017-04-15] MEDS: DIOVAN PO SCH (08:15)
[2017-04-15] MEDS: LOPRESSOR PO SCH ×2 (08:15→20:13)
[2017-04-15] MEDS: VITAMIN B-1 PO SCH (08:15)
[2017-04-15] MEDS: SOLU-MEDROL IV SCH (08:15)
[2017-04-15] MEDS: LANOXIN PO SCH (08:15)
[2017-04-15] MEDS: CARDIZEM 125/NS 125 MG/125 ML IVPB IV SCH (11:54)
[2017-04-15] MEDS: PROTONIX IV SCH (14:03)
[2017-04-15] MEDS: ROCEPHIN 1 GM/NS 1 GM/50 ML IVPB IV SCH (14:03)
--- NOTE | 2017-04-15 14:03 | PROGRESS NOTE ---
DATE: 04/15/2017 SUBJECTIVE: The patient continues without dyspnea on room air. There has been no chest discomfort. OBJECTIVE: Vital Signs: Blood pressure 133/99, heart rate 99 and irregular with ECG monitor showing atrial fibrillation. Neck: There is no significant jugular venous distention. Chest: Clear to auscultation. Cardiac Exam: Reveals an irregular rate and rhythm with grade 2/6 holosystolic murmur at the left ventricular apex. No gallop could be appreciated. Extremities: Without edema. LABORATORY DATA: Lab data includes a BUN 25, creatinine 0.9, potassium 4.1. IMPRESSION: 1. Acute congestive heart failure, improved with diuresis. 2. 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 Left atrial enlargement, congestive heart failure, and development atrial fibrillation are suggesting the mitral regurgitation may in fact be more hemodynamically important. 3. Chronic obstructive pulmonary disease with exacerbation. 4. Previous endocarditis of mitral valve fifteen years ago with associated dental infection. 5. Very poor dentition. 6. Chronic cigarette use, recently discontinued. 7. Alcoholism. Patient has been sober for about a month. RECOMMENDATIONS: 1. Adjust valsartan. 2. Continue low-dose beta kelsea and digoxin for rate control. 3. Maintain anticoagulation. Reasonable to transition to Eliquis. 4. Change intravenous Lasix to oral Lasix daily. 5. Reasonable for patient to be discharged soon from a cardiovascular standpoint. He will need close followup as an outpatient. I will be happy to see in my office approximately 1 week after discharge. cc: Yousuf Paige MD
--- NOTE | 2017-04-15 17:06 | PROGRESS NOTE ---
DATE: 04/15/2017 SUBJECTIVE: Today, Mr. Maldonado referred to be doing a lot better. He stated his shortness of breath has significantly improved. OBJECTIVE: Vital Signs: Blood pressure is 130/89, pulse of 100, respirations 16, temperature 97.8 degrees. General: Mr. Maldonado is a 57-year-old male. He is sitting up in the chair on the bedside not in any distress. HEENT: Mucosa is pink and moist. Anicteric. Acyanotic. Neck is supple. I did not appreciate any JVD. Chest: Air entry is bilaterally reduced. There is some hyperresonance on percussion throughout the chest. There is also a prolonged expiratory phase of respiration. Cardiovascular: Regular rate and rhythm. Abdomen is soft, nontender. Extremities: No pedal edema. CORPORATE COMPLIANCE OFFICER: Patient is awake, alert, and oriented. Mouth: Patient has very poor dentition. LABORATORY DATA: Labs have been reviewed. WBC is 13.38, hemoglobin is 14.5, platelet count of 247,000. Chemistry is also reviewed and completely unremarkable. ASSESSMENT: 1. Acute respiratory distress on presentation secondary to both pulmonary edema and chronic obstructive pulmonary disease exacerbation. 2. Chronic obstructive pulmonary disease exacerbation. The patient continues to be on steroid, pulmonary toilette, bronchodilation therapy and antibiotics. 3. Bibasilar pneumonia. 4. Previous history of mitral valve endocarditis with residual mitral valve regurgitation. 5. New onset atrial fibrillation with rapid ventricular response; currently rate controlled. Patient has been switched to p.o. medications. 6. Diastolic heart failure. 7. History of tobacco abuse. 8. Alcohol abuse. So, in general, Mr. Maldonado is doing a lot better. We will going to switch his antibiotics also to oral. The patient has been started on p.o. Eliquis, and we will switch his steroids also to oral. I think by tomorrow we should be able to discharge Mr. Maldonado. cc: Champ Beltran MD
[2017-04-15] MEDS: ELIQUIS PO SCH (20:13)
[2017-04-16] MEDS: DUONEB (A & A) INH SCH ×3 (03:23→11:22)
[2017-04-16 05:26] LABS: BASO% 0.2 % (0.0-0.8); EOS# 0.05 X1000 (0.0-0.7); EOS% 0.4 % (0.0-10.0); HEMATOCRIT 40.7 % (42.0-52.0); HEMOGLOBIN 15.1 g/dL (14.0-18.0); IMM GRAN# 0.23 X1000 (0.0-0.04); IMM GRAN% 1.7 % (0.0-0.5); LYMPH# 5.22 X1000 (1.2-3.4); LYMPH% 38.8 % (20.5-51.1); MCH 37.1 PG (27-31); MCHC 37.1 g/dL (33-37); MONO# 1.67 X1000 (0.11-0.59); MONO% 12.4 % (1.7-9.3); MPV 9.8 FL (7.4-10.4); NEUT% 46.5 % (42.2-75.2); PLT 260 X1000 (130-400); RBC 4.07 XMIL (4.7-6.1)
[2017-04-16 05:29] LABS: MANUAL DIFF NEEDED? NO
[2017-04-16 05:35] LABS: AGAP 10; BUN 24 mg/dL (8-22); CALCIUM 8.4 mg/dL (8.8-10.2); CHLORIDE 101 mmol/L (98-107); COSMO 285; POTASSIUM 3.6 mmol/L (3.5-5.1); SODIUM 141 mmol/L (136-145); TCO2 30 mmol/L (25-35)
[2017-04-16] MEDS: VITAMIN B-1 PO SCH (08:10)
[2017-04-16] MEDS: LOPRESSOR PO SCH (08:10)
[2017-04-16] MEDS: LANOXIN PO SCH (08:10)
[2017-04-16] MEDS: NICODERM PATCH TD SCH (08:10)
[2017-04-16] MEDS: ELIQUIS PO SCH (08:10)
[2017-04-16] MEDS ORDERED: DIOVAN PO SCH (09:00)
[2017-04-16] MEDS ORDERED: PREDNISONE PO SCH (09:00)
[2017-04-16] MEDS ORDERED: ZITHROMAX PO SCH (09:00)
[2017-04-16] MEDS: TYLENOL PO PRN (11:04)
[2017-04-16 11:38] VITALS: BP 128/82
[2017-04-16] MEDS ORDERED: PROTONIX PO SCH (14:00)
--- NOTE | 2017-04-17 06:02 | DISCHARGE SUMMARY ---
ADMISSION DATE: 04/12/2017 DISCHARGE DATE: 04/16/2017 CONSULTATIONS: Dr. Yousuf Paige with Cardiology. PERTINENT PROCEDURES: 1. Pulmonary arteriogram showed no evidence of PE. Findings suggestive of pulmonary edema and congestive heart failure. Basilar pneumonia cannot entirely be excluded. Mild emphysematous changes. 2. Echocardiogram showed an EF of 65% and showed abnormal mitral valve with what appeared to be disrupted portion of posterior mitral leaflet secondary to previous endocarditis and associated moderate to severe mitral regurgitation. Atrial fibrillation during the study. DISCHARGE DIAGNOSES: 1. Acute respiratory distress on presentation secondary to pulmonary edema and COPD exacerbation resolved. 2. Chronic obstructive pulmonary disease exacerbation improved. 3. Bibasilar pneumonia. Patient being discharged with Zithromax and steroids. 4. Diastolic heart failure aware. 5. Previous history of mitral valve endocarditis with residual mitral valve regurgitation. 6. New onset atrial fibrillation with RVR. Currently rate controlled. The patient has been switched to p.o. medication. Follow up with Dr. Paige. 7. History of alcohol and tobacco abuse. Patient has been educated to continue with cessation and abstinence of both. HOSPITAL COURSE: Mr. Maldonado is a 57-year-old, male who carries a past medical history of COPD and mitral regurgitation with previous endocarditis on the mitral valve fifteen years ago associated with dental abscess and tobacco abuse where he recently just quit smoking as well as alcoholism where he quit in the past 30 days. The patient came to the ED 2 days prior to his most recent admission with progressive dyspnea over a week as well as some chest pressure when he was lying down as well as palpitations. He came to the ED to be treated. He received bronchodilators and corticosteroids. He was also noted to be in atrial fibrillation with RVR and administered home medications to control his rate. He started to feel better. They wanted to admit him however he chose to go home. He went home where he continued to feel better, however within a day, he resumed smoking cigarettes and again started to have progressive shortness of breath with worsening dyspnea. He came back to the ED with the same symptoms. He accepted admission at this time. He was again in atrial fibrillation with RVR. He was started on IV Cardizem for rate control. His clinical findings suggested both COPD as well as CHF exacerbation. He was diuresed with IV Lasix and started on bronchodilators as well as IV steroids and IV antibiotics. Pulmonary arteriogram also suggested pneumonia for which he was continued on IV antibiotics. He underwent an echocardiogram, as well as a Cardiology consult. The patient was weaned off of IV steroids p.o. He was weaned off his supplemental O2 to room air. He was able to come off his Cardizem drip and transitioned to p.o. digoxin and Lopressor as well as p.o. Eliquis for his anticoagulation. We did adjustments to his valsartan. He has been cleared for discharge by Cardiology. His IV Lasix has been transition to p.o. He has diuresed well. Police Patrol Lieutenant was involved as well as the [employer] program to help the patient afford medications. VITAL SIGNS: At time of discharge, temperature is 97.7 degrees, heart rate 102, respirations 16, blood pressure 128/82, and O2 is 100% on room air. DISCHARGE DIET: Healthy heart with dietary education done while in house. DISCHARGE MEDICATIONS: 1. Eliquis 5 mg p.o. b.i.d. 2. Zithromax 250 mg p.o. daily. 3. Digoxin 250 mcg p.o. daily. 4. Lopressor 25 mg p.o. b.i.d. 5. NicoDerm patch 21 mg daily. 6. Protonix 40 mg p.o. q. 24 hours. 7. Prednisone 20 mg p.o. daily for 5 days. 8. Vitamin B 100 mg p.o. every morning 9. Diovan 80 mg p.o. daily. FOLLOWUP: Mr. Maldonado is being discharged home. He will follow up with Dr. Paige on 04/24/2017 at 09:00 in the morning as well as Dr. Faisal Saenz. He will need to follow up with a primary care physician who is accepting new patients in 1-2 weeks. Police Patrol Lieutenant has worked with the patient. The [employer] program has also worked with the patient and his medications. Dietary has educated the patient on healthy heart diet. He has been educated on weighing himself as well as following his I's and O's and his fluid intake as well as continued smoking cessation as well as alcohol abstinence. He can return to the ED for any worsening of symptoms DISCHARGE TIME: Greater than 35 minutes. Dictated by SILVESTRE Campbell for Champ Beltran MD cc: Champ Beltran MD
== END 2017-04-16 14:30 | disposition home or self-care (01) ==
LOC: ED 10:45 → SUATTDRO 13:21 → 3S 13:21
PROVIDERS: ATTEND Internal Medicine

== ENCOUNTER 2017-05-17 08:07 | Inpatient (IN) ==
[2017-05-17] MEDS ORDERED: ASPIRIN ONE (08:24)
[2017-05-17] MEDS: ASPIRIN PO STA ×2 (08:28→08:33)
[2017-05-17 08:40] LABS: MANUAL DIFF NEEDED? NO
[2017-05-17 08:50] LABS: BASO% 0.3 % (0.0-0.8); EOS% 1.5 % (0.0-10.0); HEMATOCRIT 38.2 % (42.0-52.0); HEMOGLOBIN 13.4 g/dL (14.0-18.0); IMM GRAN# 0.02 X1000 (0.0-0.04); IMM GRAN% 0.3 % (0.0-0.5); LYMPH# 2.31 X1000 (1.2-3.4); LYMPH% 33.8 % (20.5-51.1); MCH 35.1 PG (27-31); MCHC 35.1 g/dL (33-37); MONO# 0.82 X1000 (0.11-0.59); NEUT% 52.1 % (42.2-75.2); PLT 149 X1000 (130-400); RBC 3.82 XMIL (4.7-6.1)
[2017-05-17 08:53] LABS: PROTIME 10.5 Seconds (9.2-11.7); PTT 30.8 Seconds (22.0-36.0)
[2017-05-17 09:00] LABS: AGAP 8; ALKALINE PHOSPHATASE 73 U/L (32-122); BUN 10 mg/dL (8-22); CHLORIDE 100 mmol/L (98-107); COSMO 283; GOT 49 U/L (10-34); GPT 52 U/L (10-44); POTASSIUM 3.8 mmol/L (3.5-5.1); SODIUM 143 mmol/L (136-145); TCO2 35 mmol/L (25-35); TOTAL BILIRUBIN 0.71 mg/dL (0.20-1.00); TOTAL PROTEIN 7.2 g/dL (6.3-8.3)
--- NOTE | 2017-05-17 09:05 | Diag Imaging Result Doc PS360 ---
CHEST-2 VIEWS - 05/17/2017 INDICATION: CP TECHNIQUE: COMPARISON: 05/07/2017 FINDINGS: Stable severe COPD. There is interstitial pulmonary edema as seen by curly B lines bilaterally. There is cardiomegaly and pulmonary vascular congestion. There are trace pleural effusions. IMPRESSION: Cardiomegaly, pulmonary edema, trace pleural effusions. COPD. Electronically signed by Walter Radford 05/17/2017 9:03 AM
[2017-05-17 09:24] LABS: ALLEN TEST YES; BE 5.6 mmoll (-3.0-3.0); BLOOD TYPE ARTERIAL; DRAW SITE R RADIAL; PCO2(98.6) 41 mmHg (35-45); SAMPLE BLOOD; SAO2 89.1 % (95.0-100.0); THB 12.7 g/dL (11.5-17.4); pH(98.6) 7.47 (7.35-7.45)
[2017-05-17 09:27] LABS: MODALITY CANNULA; PO2(98.6) 47 mmHg (60-100)
--- NOTE | 2017-05-17 11:24 | Diag Imaging Result Doc PS360 ---
CT ANGIOGRM/PULMONARY ARTERIES - 05/17/2017 INDICATION: shortness of breath TECHNIQUE: Axial CT images were obtained after administering intravenous contrast. Coronal MIP images were generated. A CT dose reduction protocol was used. COMPARISON: 04/12/2017 FINDINGS: There is no pulmonary embolism. There is cardiomegaly. There are small pleural effusions. There is severe interstitial pulmonary edema. There is mild COPD. Upper abdominal images are normal. IMPRESSION: Negative for pulmonary embolism. Cardiomegaly, pulmonary edema, pleural effusions. Electronically signed by Walter Radford 05/17/2017 11:22 AM
[2017-05-17] MEDS ORDERED: MORPHINE IV PRN (12:16)
[2017-05-17] MEDS ORDERED: DUONEB (A & A) INH PRN (12:16)
[2017-05-17] MEDS ORDERED: NICODERM PATCH TD PRN (12:16)
[2017-05-17] MEDS ORDERED: ZOFRAN IV PRN (12:16)
[2017-05-17] MEDS ORDERED: LASIX IV ONE (12:58)
[2017-05-17] MEDS ORDERED: NS NEB INH SCH (13:15)
[2017-05-17] MEDS: PROTONIX PO SCH (14:18)
[2017-05-17] MEDS: XOPENEX NEB INH SCH ×2 (15:48→21:11)
[2017-05-17] MEDS ORDERED: DUONEB (A & A) INH SCH (16:00)
[2017-05-17] MEDS: ELIQUIS PO SCH (20:19)
[2017-05-17] MEDS: LOPRESSOR PO SCH (20:19)
[2017-05-18] MEDS: XOPENEX NEB INH SCH ×4 (03:41→21:34)
[2017-05-18 05:22] LABS: HEMATOCRIT 35.9 % (42.0-52.0); HEMOGLOBIN 12.7 g/dL (14.0-18.0); MCHC 35.4 g/dL (33-37); MCV 101.7 FL (81-99); MPV 10.2 FL (7.4-10.4); RBC 3.53 XMIL (4.7-6.1)
[2017-05-18 05:44] LABS: AGAP 12; ALBUMIN 3.6 g/dL (3.5-5.0); ALKALINE PHOSPHATASE 70 U/L (32-122); BUN 13 mg/dL (8-22); CALCIUM 7.9 mg/dL (8.8-10.2); CHLORIDE 98 mmol/L (98-107); COSMO 284; DIGOXIN 0.9 ng/mL (0.9-2.0); GOT 44 U/L (10-34); GPT 46 U/L (10-44); POTASSIUM 3.2 mmol/L (3.5-5.1); SODIUM 142 mmol/L (136-145); TCO2 32 mmol/L (25-35); TOTAL BILIRUBIN 0.63 mg/dL (0.20-1.00); TOTAL PROTEIN 6.7 g/dL (6.3-8.3)
[2017-05-18] MEDS ORDERED: KLOR-CON PO ONE ×2 (07:11→12:56)
[2017-05-18] MEDS ORDERED: DIOVAN PO SCH (09:00)
[2017-05-18] MEDS: NICODERM PATCH TD SCH (09:17)
[2017-05-18] MEDS: DIOVAN PO SCH (09:17)
[2017-05-18] MEDS: LANOXIN PO SCH (09:18)
[2017-05-18] MEDS: ELIQUIS PO SCH ×2 (09:18→20:19)
[2017-05-18] MEDS: ASPIRIN EC PO SCH (09:18)
[2017-05-18] MEDS: LOPRESSOR PO SCH ×2 (09:18→20:19)
[2017-05-18] MEDS: VITAMIN B-1 PO SCH (09:20)
--- NOTE | 2017-05-18 09:27 | Diag Imaging Result Doc PS360 ---
CHEST-2 VIEWS - 05/18/2017 INDICATION: pulmonary edema TECHNIQUE: COMPARISON: 05/17/2017 FINDINGS: There is significant improvement in the bilateral interstitial pulmonary edema. This is now essentially resolved. There are some trace pleural effusions. There is improvement in the borderline cardiomegaly. Stable advanced COPD changes. IMPRESSION: Significant improvement from prior. Electronically signed by Walter Radford 05/18/2017 9:24 AM
[2017-05-18] MEDS: PROTONIX PO SCH (12:18)
[2017-05-18] MEDS ORDERED: TYLENOL PO PRN (12:22)
[2017-05-18] MEDS ORDERED: LASIX IV ONE (12:55)
[2017-05-18] MEDS: AUGMENTIN PO SCH ×2 (13:22→20:19)
[2017-05-19] MEDS: XOPENEX NEB INH SCH ×4 (03:46→21:31)
[2017-05-19 05:20] LABS: HEMATOCRIT 36.4 % (42.0-52.0); HEMOGLOBIN 12.7 g/dL (14.0-18.0); MCHC 34.9 g/dL (33-37); MCV 103.1 FL (81-99); MPV 9.8 FL (7.4-10.4); RBC 3.53 XMIL (4.7-6.1)
[2017-05-19 06:03] LABS: AGAP 8; ALBUMIN 3.7 g/dL (3.5-5.0); ALKALINE PHOSPHATASE 66 U/L (32-122); BUN 17 mg/dL (8-22); CALCIUM 8.7 mg/dL (8.8-10.2); CHLORIDE 103 mmol/L (98-107); COSMO 286; DIRECT BILIRUBIN < 0.20 mg/dL (0.00-0.20); GOT 41 U/L (10-34); GPT 47 U/L (10-44); POTASSIUM 3.6 mmol/L (3.5-5.1); SODIUM 143 mmol/L (136-145); TCO2 32 mmol/L (25-35); TOTAL BILIRUBIN 0.43 mg/dL (0.20-1.00); TOTAL PROTEIN 6.6 g/dL (6.3-8.3)
[2017-05-19] MEDS: NICODERM PATCH TD SCH (09:26)
[2017-05-19] MEDS: ELIQUIS PO SCH ×2 (09:26→20:01)
[2017-05-19] MEDS: DIOVAN PO SCH (09:26)
[2017-05-19] MEDS: VITAMIN B-1 PO SCH (09:26)
[2017-05-19] MEDS: AUGMENTIN PO SCH ×2 (09:26→20:01)
[2017-05-19] MEDS: ASPIRIN EC PO SCH (09:26)
[2017-05-19] MEDS: LANOXIN PO SCH (09:32)
[2017-05-19] MEDS: LOPRESSOR PO SCH ×2 (09:34→20:01)
[2017-05-19] MEDS: PAXIL PO SCH (09:36)
[2017-05-19] MEDS: PROTONIX PO SCH (11:29)
[2017-05-19 12:39] LABS: HEPATITIS PROFILE ACUTE SEE COMMENTS
[2017-05-20] MEDS: XOPENEX NEB INH SCH ×2 (03:59→09:18)
[2017-05-20 05:57] LABS: AGAP 11; BUN 17 mg/dL (8-22); CALCIUM 8.1 mg/dL (8.8-10.2); CHLORIDE 103 mmol/L (98-107); COSMO 283; POTASSIUM 3.7 mmol/L (3.5-5.1); SODIUM 141 mmol/L (136-145); TCO2 27 mmol/L (25-35)
[2017-05-20] MEDS: ASPIRIN EC PO SCH (08:34)
[2017-05-20] MEDS: PAXIL PO SCH (08:34)
[2017-05-20] MEDS: LANOXIN PO SCH (08:34)
[2017-05-20] MEDS: NICODERM PATCH TD SCH (08:34)
[2017-05-20] MEDS: ELIQUIS PO SCH (08:35)
[2017-05-20] MEDS: VITAMIN B-1 PO SCH (08:35)
[2017-05-20] MEDS: AUGMENTIN PO SCH (08:35)
[2017-05-20] MEDS: LOPRESSOR PO SCH (08:35)
[2017-05-20] MEDS: DIOVAN PO SCH (08:36)
[2017-05-20] MEDS ORDERED: LASIX PO SCH (09:00)
[2017-05-20] MEDS ORDERED: KLOR-CON PO SCH (09:00)
[2017-05-20 11:10] VITALS: BP 114/76
[2017-05-21 11:32] LABS: HCV BY PCR SEE COMMENTS; HCV CHARGE YES
== END 2017-05-20 15:08 | disposition home or self-care (01) ==
LOC: ED 08:07 → SUATTDRO 13:16 → EDIPHOLD 13:16 → 3S 14:28
PROVIDERS: ATTEND Emergency Medicine

== ENCOUNTER 2019-08-30 10:34 | Inpatient (IN) ==
[2019-08-30] MEDS ORDERED: NS 500 ML IV SCH (11:00)
--- NOTE | 2019-08-30 11:01 | PROVIDER DOCUMENTATION ---
HPI-Musculoskeletal Pain/Inj - GENERAL Chief Complaint: Fall Stated Complaint: FALL OFF ROOF 2 DAYS AGO Time Seen by Provider: 08/30/19 10:41 Source: patient - HX OF PRESENT ILLNESS-MUSKULOSKELTAL Nature of Presenting Problem: Patient is a 59 yowm who complains of pain in left shoulder, left wrist, left r ib area, and left hip since falling off of a roof on Friday. States he fell because his co-worker fell and he attempted to catch him. States he fell onto his left side, struck his head on the ground. Denies LOC, states, "I felt fuzzy afterward." Pt on anticoagulants. Denies any other pain/complaints/injuries. He is non-toxic in appearance. Review of Systems - Adult - REVIEW OF SYSTEMS - ADULT Constitutional: reports: no symptoms reported Eyes: reports: no symptoms reported Ears, Nose, Mouth & Throat: reports: no symptoms reported Cardiovascular: reports: no symptoms reported Respiratory: reports: no symptoms reported Gastrointestinal: reports: no symptoms reported Genitourinary: reports: no symptoms reported Musculoskeletal: reports: see HPI Integumentary: reports: no symptoms reported Neurological: reports: no symptoms reported Psychiatric: reports: no symptoms reported Endocrine: reports: no symptoms reported Hematologic/Lymphatic: reports: no symptoms reported Allergic/Immunologic: reports: no symptoms reported All Other Systems: Reviewed and Negative Past History - Adult - PAST MEDICAL HISTORY-ADULT Review of Records: reports: Nursing Assessment Review, Medications Reviewed, Social history reviewed & non-contributory. Major Childhood Illnesses: reports: denies history Cardiovascular: reports: CHF, HTN Respiratory: reports: denies history, COPD Gastrointestinal: reports: denies history Obstetrical/Gynecological: reports: denies history Genitourinary: reports: denies history Musculoskeletal: reports: denies history Neurological: reports: denies history Psychiatric: reports: denies history Endocrine/Immune: reports: denies history Other Conditions: reports: denies history - PRIOR SURGERIES/PROCEDURES Surgical/Procedure History: reports: none - IMMUNIZATION STATUS Childhood Immunizations: See Nurse Assessment Flu Vaccine: See Nurse Assessment - FAMILY HISTORY Family History: reviewed, not pertinent - SOCIAL HISTORY Smoking: cigarettes, greater than 1 pack/day Physical Exam-Injury Related - Physical Exam-Injury Related Initial Vital Signs Reviewed: Yes General Appearance: alert, no apparent distress. negative: lethargic, slow to respond Eyes: PERRL/EOMI, pink conjunctivae Head, Ears, Nose, Mouth & Throat: normocephalic/atraumatic, moist mucous membranes Neck: non-tender, full range of motion, supple, normal inspection. negative: C- spine tenderness Respiratory: lungs clear, normal breath sounds, no respiratory distress, no accessory muscle use, rib tenderness (left- anterior). negative: retractions, splinting, crepitus, ecchymosis, flail chest, palpable fracture, paradoxical movements Cardiovascular: normal peripheral pulses, regular rate, rhythm, no edema, no gallop, no JVD, no murmur Peripheral Pulses: radial (R): 3+, radial (L): 3+, dorsalis-pedis (R): 2+, dorsalis-pedis (L): 2+ Abdominal Exam: normal bowel sounds, soft, no organomegaly, no pulsatile mass, tenderness (LUQ). negative: distended, guarding, rigid, rebound Back Exam: normal inspection, no CVA tenderness, no vertebral tenderness. negative: ecchymosis Extremity: normal inspection, normal capillary refill, pelvis stable, tenderness (Anterior and psoterior aspects of left hip. Left wrist moderately swollen and tender to palpation, ROM of left hip and left wrist limited due to pain. Neurovascular exam intact distally.). negative: deformity, pulse deficit, slow capillary refill Integumentary: normal color, warm/dry. negative: cyanosis, diaphoresis, jaundice, mottled, pallor Neurologic: grossly normal, no motor/sensory deficits Psych/Mental Status: normal mood/affect, normal thought content, normal thought process, oriented x 3 - Glascow Coma Score Best Eye Response (Piercy): (4) open spontaneously Best Verbal Response ([place]ison): (5) oriented Best Motor Response (Piercy): (6) obeys commands Progress - PLAN OF CARE/RESULTS Progress/Plan/Lab Results: Vital Signs - 8 hr 08/30/19 10:35 Temperature 98.2 F Pulse Rate 116 H Respiratory Rate 20 Blood Pressure 103/62 O2 Sat by Pulse Oximetry 100 Laboratory Results - last 24 hr 08/30/19 08/30/19 08/30/19 12:14 12:14 12:14 WBC 4.34 L RBC 2.80 L Hgb 9.3 L Hct 27.5 L MCV 98.2 MCH 33.2 H MCHC 33.8 RDW Std Deviation 13.0 Plt Count 128 L MPV 10.0 Immature Gran % (Auto) 0.0 Neut % (Auto) 77.4 H Lymph % (Auto) 12.7 L [place] % (Auto) 9.0 Eos % (Auto) 0.7 Baso % (Auto) 0.2 Immature Gran # (Auto) 0.00 Neut # (Auto) 3.36 Lymph # (Auto) 0.55 L [place] # (Auto) 0.39 Eos # (Auto) 0.03 Baso # (Auto) 0.01 PT 12.8 INR 0.95 PTT (Actin FS) 33.3 Sodium 131 L Potassium 3.6 Chloride 95 L Carbon Dioxide 24 L Anion Gap 12 BUN 9 Creatinine 1.0 Estimated GFR/1.73 m2 > 60 BUN/Creatinine Ratio 9 Glucose 95 Calculated Osmolality 261 Calcium 7.8 L Total Bilirubin 0.83 AST 31 ALT 18 Alkaline Phosphatase 62 Total Protein 6.0 L Albumin 3.3 L Globulin 2.7 Albumin/Globulin Ratio 1.2 Urine Source Urine Color Urine Turbidity Urine pH Ur Specific [place] Urine Protein Ur Glucose (Stick) Ur Ketones (Stick) Urine Blood Urine Nitrite Urine Bilirubin Urobilinogen Dipstick Urine Leukocytes Urine WBC (Auto) Urine RBC (Auto) U Epithel Cells (Auto) Urine Bacteria (Auto) 08/30/19 12:17 WBC RBC Hgb Hct MCV MCH MCHC RDW Std Deviation Plt Count MPV Immature Gran % (Auto) Neut % (Auto) Lymph % (Auto) [place] % (Auto) Eos % (Auto) Baso % (Auto) Immature Gran # (Auto) Neut # (Auto) Lymph # (Auto) [place] # (Auto) Eos # (Auto) Baso # (Auto) PT INR PTT (Actin FS) Sodium Potassium Chloride Carbon Dioxide Anion Gap BUN Creatinine Estimated GFR/1.73 m2 BUN/Creatinine Ratio Glucose Calculated Osmolality Calcium Total Bilirubin AST ALT Alkaline Phosphatase Total Protein Albumin Globulin Albumin/Globulin Ratio Urine Source CLEAN CATCH Urine Color YELLOW Urine Turbidity CLEAR Urine pH 6.0 Ur Specific [place] 1.010 Urine Protein TRACE A Ur Glucose (Stick) NEGATIVE Ur Ketones (Stick) NEGATIVE Urine Blood NEGATIVE Urine Nitrite NEGATIVE Urine Bilirubin NEGATIVE Urobilinogen Dipstick NORMAL Urine Leukocytes NEGATIVE Urine WBC (Auto) <10 Urine RBC (Auto) <10 U Epithel Cells (Auto) <10 Urine Bacteria (Auto) NEGATIVE Orders Category Date Time Status Arm Sling DIRECTED Care 08/30/19 13:26 Active OCL Splint DIRECTED Care 08/30/19 12:[address] HEAD/C-SPINE W/O CONTRAST [CT] Stat Exams 08/30/19 10:[address] THORAX/ABD/PELVIS W/CON [CT] Stat Exams 08/30/19 10:58 Completed SHOULDER-LEFT [RAD] Stat Exams 08/30/19 10:58 Completed WRIST COMPLETE LEFT [RAD] Stat Exams 08/30/19 10:58 Completed XRAY PELVIS W/HIP 2-3VW LT [RAD] Stat Exams 08/30/19 10:58 Completed ALCOHOL BLOOD Stat Lab 08/30/19 12:54 Ordered CBC WITH DIFF [HEME] Stat Lab 08/30/19 12:14 Completed COMPREHENSIVE METABOLIC PANEL [CHEM] Stat Lab 08/30/19 12:14 Completed PROTIME WITH INR [COAG] Stat Lab 08/30/19 12:14 Completed PTT [COAG] Stat Lab 08/30/19 12:14 Completed UA NIMS W/REFLEX CULT [URINALYSIS] Stat Lab 08/30/19 12:17 Completed URINE DRUG SCREEN Stat Lab 08/30/19 12:59 Ordered 0.9% Sodium Chloride Inj [Ns] 500 ml Med 08/30/19 11:00 Active IV 150 mls/hr Morphine Med 08/30/19 11:58 Discontinued 2 mg IV NOW ONE Ondansetron [Zofran] Med 08/30/19 11:58 Discontinued 4 mg IV NOW ONE Result Diagrams: 08/30/19 12:14 08/30/19 12:14 - REASSESSMENT Reassessment #1 Time Reassessed: 12:40 Status: other (On-call ortho paged.) Reassessment #2 Time Reassessed: 13:37 Status: other (Pt appears intoxicated. Has urinated in the floor in treatment room. Morphine held due to AMS. Discussed case with Dr. Zhu who recommends admitting to HPS due to intoxication and pelvic fracture and risk for falls. Spoke with [facility] POWERHOUSE MECHANIC HELPER who states she will speak with Dr. Sagastume about admitting pt. UDS and etoh level pending.) - XRAY 1 XRAY: Left XRAY Study: Pelvis, Hip ([facility] - [address], [address], [place] [address] [facility] [place] [address] Department of Imaging Patient: JORDIN ALVAREZ Date: 08/30/19MR#: [id number] : 1960DM Status: REG ERAcct#: [id number] Age/Sex: 59/MRoom/Bed: Loc: ED Ordering Physician: Jose Martin Coffey Family Physician: None,PCP Reason for Procedure: TRAUMA ___ Signed EXAM: XRAY PELVIS W/HIP 2-3VW LT HISTORY: TRAUMA TECHNIQUE: Three views COMPARISON: None. FINDINGS: There are fractures to the superior and inferior pubic rami. The femoral head is not dislocated. No fracture to the proximal femur. IMPRESSION: Fractures to the left superior and inferior pubic rami. Electronically signed by Medhat Jiang 08/30/2019 11:31 AM 08/30/19 1131 Interpreting Physician: Medhat Jiang MD Dictated Date/Time: 08/30/19 1130 cc: Jose Martin Coffey; None,PCP) 2 XRAY: Left XRAY Study: Shoulder ([facility] - [address], [address], [place] [address] [facility] [place] [address] Department of Imaging Patient: JORDIN ALVAREZ Date: 08/30/19MR#: [id number] : 1960DM Status: REG ERAcct#: [id number] Age/Sex: 59/MRoom/Bed: Loc: ED Ordering Physician: Jose Martin Coffey Family Physician: None,PCP Reason for Procedure: TRAUMA Signed EXAM: SHOULDER-LEFT HISTORY: TRAUMA TECHNIQUE: Shoulder three views including an axillary Y-view COMPARISON: None. FINDINGS: No fracture. No dislocation. No separation at the acromioclavicular joint. IMPRESSION: No acute bony injury. Electronically signed by Medhat Jiang 08/30/2019 11:33 AM 08/30/19 1133 Interpreting Physician: Medhat Jiang MD Dictated Date/Time: 08/30/19 1133 cc: Jose Martin Coffey; None,PCP) 3 XRAY: Left XRAY Study: Wrist ([facility] - [address] [place] [address] [address] [address] [facility] - [address] [place] [address] Department of Imaging Patient: JORDIN ALVAREZ Date: 08/30/19#: [id number] : 1960DM Status: REG ERAt#: [id number] Age/Sex: 59/MRoom/Bed: Loc: ED Ordering Physician: Jose Martin Coffey Family Physician: None,PCP Reason for Procedure: TRAUMA Signed EXAM: WRIST COMPLETE LEFT HISTORY: TRAUMA TECHNIQUE: Three views COMPARISON: None. FINDINGS: There is a transverse fracture through the distal radius with compaction. There may be an additional fracture line extending into the radiocarpal joint. IMPRESSION: Fracture to the distal radius Electronically signed by Medhat Jiang 08/30/2019 11:32 AM 08/30/19 1132 Interpreting Physician: Medhat Jiang MD Dictated Date/Time: 08/30/19 1132 cc: Jose Martin Coffey; None,PCP) - CT/MRI 1 CT Study: Cervical Spine ([facility] - [address] [facility], [address], [place] [address] [facility] - [address] [place] [address] Department of Imaging Patient: JORDIN ALVAREZ AADM Date: 08/30/19MR#: [id number] : 1960DM Status: [facility] ERAcct#: [id number] Age/Sex: 59/MRoom/Bed: Loc: ED Ordering Physician: Jose Martin Coffey Family Physician: None,PCP Reason for Procedure: TRAUMA Signed CT HEAD/C-SPINE W/O CONTRAST - 08/30/2019 INDICATION: TRAUMA COMPARISON: 08/11/2019 FINDINGS: Head CT: The ventricles and sulci are normal in size and contour. No intracranial mass or hemorrhage. The skull is intact. The sinuses, mastoids, and middle ears are clear. Cervical spine: Alignment is anatomic. No fracture or subluxation. Vertebral body heights are preserved. There is mild disc degeneration at C5-C6. IMPRESSION: No acute injury. This exam was performed using automated exposure control, adjustment of mA or kV according to patient size, and/or use of iterative reconstruction technique Electronically signed by Walter Radford 08/30/2019 12:21 PM 08/30/19 1221 Interpreting Physician: Walter Radford MD Dictated Date/Time: 12/23/19 1220 cc: Jose Martin Coffey; None,PCP), Head 2 CT Study: Abdomen, Pelvis, Thorax ([facility] - [address], [address], [place] [address] [facility] - [address] , [place] [address] Department of Imaging Patient: JORDIN ALVAREZ AADM Date: 08/30/19#: [id number] : 1960DM Status: REG [facility]#: [id number] Age/Sex: 59/MRoom/Bed: Loc: ED Ordering Physician: Jose Martin Coffey Family Physician: None,PCP Reason for Procedure: TRAUMA Signed EXAM: CT THORAX/ABD/PELVIS W/CON HISTORY: TRAUMA TECHNIQUE: 1. CT chest with intravenous contrast 2. CT abdomen and pelvis with intravenous contrast COMPARISON: None. FINDINGS: Chest: No pleural effusions. No aortic dissection. No pneumothoraces. No lung contusion. The heart is enlarged and there are sternal wires. Emphysema is present. Abdomen and pelvis: No hepatic or splenic laceration. Normal enhancement of the kidneys. No retroperitoneal hematoma. Normal gallbladder, pancreas, and adrenal glands. No aortic aneurysm. No bowel obstruction. Urinary bladder is only mildly distended. No extravasation. There are fractures through the left superior and inferior pubic rami. There is extension into the pubic symphysis. No widening of the pubic symphysis. Left pelvic hematoma measuring 3.1 x 4.2 cm. Fracture adjacent to the anterior column of the left hip. Neither hip is dislocated. Fracture through the left side of the sacrum. No widening of the sacroiliac joint. IMPRESSION: Chest: No injury Abdomen and pelvis: Fracture to the left sacrum as well as the left superior and inferior pubic rami This exam was performed using automated exposure control, adjustment of mA or kV according to patient size, and/or use of iterative reconstruction technique. Electronically signed by Medhat Jiang 1 10/31/2018 12:37 PM 08/30/19 1237 Interpreting Physician: Medhat Jiang MD Dictated Date/Time: 08/30/19 1230 cc: Jose Martin Coffey; None,PCP) - CONSULTS/PCP/HOSPITALIST Notification #1 *Consult/PCP/Hospitalist*: Office of Dr. Olmstead Time Discussed: 12:46 Reason/Comments: pelvic fx, wrist fx Consult Disposition: other (Office states they will give consult to Dr. Olmstead or his PA.) #2 Consult: erin Banegas PA Time Discussed: 13:00 Reason/Comments: pelvic fx, wrist fracture Consult Disposition: other (healthcare network pricing consultant states to splint wrist, dc home, and have pt f/u in their office in 1 week) #3 Consult: LEVY Morrissey POWERHOUSE MECHANIC HELPER Time Discussed: 14:26 Reason/Comments: pelvic fx Consult Disposition: Admit (Yuni and Dr. Sagastume saw pt in the ED. Agreed to admit pt.) Departure - Departure Date of Disposition Decision: 08/30/19 Time of Disposition Decision: 14:27 DIAGNOSIS: Pelvic fracture Qualifiers: Encounter type: initial encounter Pelvic bone location: unspecified part of pelvis Fracture type: closed Fracture alignment: nondisplaced Qualified Code(s): S32.9XXA - Fracture of unspecified parts of lumbosacral spine and pelvis, initial encounter for closed fracture Radial fracture Qualifiers: Encounter type: initial encounter Radius location: distal physis (incl. Salter- Chow) Fracture alignment: nondisplaced Laterality: left Qualified Code(s): S59.292A - Other physeal fracture of lower end of radius, left arm, initial encounter for closed fracture AMS (altered mental status) Qualifiers: Altered mental status type: unspecified Qualified Code(s): R41.82 - Altered mental status, unspecified Disposition: ADMITTED INPATIENT 09 Certified Medical Emergency: Emergent Condition: Stable Referrals and Follow-Ups: None,PCP [Primary Care Provider] - - Critical Care Note This patient required my direct & personal management of CC.: No Attestation - Physician/ DALIA Attestation Patient care was provided by Advanced Practice Provider:: Yes Advanced Practice Provider:: Jose Martin Coffey Advanced Practice Provider documentation review:: The Mid-level provider documentation, treatment plan and medical decision making was reviewed by the physician who agrees with all treatment and medical decision making by the MLP. The physician spent face to face time with patient:: No Advanced Practice Provider documentation review:: Supervising physician onsite and consulted in the evaluation and care of this patient. The physician did not have a face to face encounter with the patient.
--- NOTE | 2019-08-30 11:33 | Diag Imaging Result Doc PS360 ---
EXAM: XRAY PELVIS W/HIP 2-3VW LT HISTORY: TRAUMA TECHNIQUE: Three views COMPARISON: None. FINDINGS: There are fractures to the superior and inferior pubic rami. The femoral head is not dislocated. No fracture to the proximal femur. IMPRESSION: Fractures to the left superior and inferior pubic rami. Electronically signed by Medhat Jiang 08/30/2019 11:31 AM
--- NOTE | 2019-08-30 11:35 | Diag Imaging Result Doc PS360 ---
EXAM: WRIST COMPLETE LEFT HISTORY: TRAUMA TECHNIQUE: Three views COMPARISON: None. FINDINGS: There is a transverse fracture through the distal radius with compaction. There may be an additional fracture line extending into the radiocarpal joint. IMPRESSION: Fracture to the distal radius Electronically signed by Medhat Jiang 08/30/2019 11:32 AM
--- NOTE | 2019-08-30 11:36 | Diag Imaging Result Doc PS360 ---
EXAM: SHOULDER-LEFT HISTORY: TRAUMA TECHNIQUE: Shoulder three views including an axillary Y-view COMPARISON: None. FINDINGS: No fracture. No dislocation. No separation at the acromioclavicular joint. IMPRESSION: No acute bony injury. Electronically signed by Medhat Jiang 08/30/2019 11:33 AM
[2019-08-30] MEDS ORDERED: MORPHINE IV ONE (11:58)
[2019-08-30] MEDS ORDERED: ZOFRAN IV ONE (11:58)
--- NOTE | 2019-08-30 12:24 | Diag Imaging Result Doc PS360 ---
CT HEAD/C-SPINE W/O CONTRAST - 08/30/2019 INDICATION: TRAUMA COMPARISON: 08/11/2019 FINDINGS: Head CT: The ventricles and sulci are normal in size and contour. No intracranial mass or hemorrhage. The skull is intact. The sinuses, mastoids, and middle ears are clear. Cervical spine: Alignment is anatomic. No fracture or subluxation. Vertebral body heights are preserved. There is mild disc degeneration at C5-C6. IMPRESSION: No acute injury. This exam was performed using automated exposure control, adjustment of mA or kV according to patient size, and/or use of iterative reconstruction technique Electronically signed by Walter Radford 08/30/2019 12:21 PM
[2019-08-30 12:28] LABS: URINE SOURCE CLEAN CATCH
[2019-08-30 12:32] LABS: BILIRUBIN URINE NEGATIVE (NEGATIVE); BLOOD URINE NEGATIVE (NEGATIVE); COLOR YELLOW; GLUCOSE URINE NEGATIVE (NEGATIVE); KETONE URINE NEGATIVE (NEGATIVE); LEUKOCYTES URINE NEGATIVE (NEGATIVE); NITRITE URINE NEGATIVE (NEGATIVE); PROTEIN URINE TRACE mg/dL (NEGATIVE); TURBIDITY URINE CLEAR (CLEAR); UROBILINOGEN URINE NORMAL (NORMAL)
[2019-08-30 12:34] LABS: UR EPITHELIAL CELLS <10 /HPF (<10); URINE BACTERIA NEGATIVE /HPF; URINE RBC <10 /HPF (<10); URINE WBC <10 /HPF (<10)
[2019-08-30 12:36] LABS: BASO# 0.01 X1000 (0.0-0.2); BASO% 0.2 % (0.0-0.8); EOS# 0.03 X1000 (0.0-0.7); EOS% 0.7 % (0.0-10.0); HEMATOCRIT 27.5 % (42.0-52.0); HEMOGLOBIN 9.3 g/dL (14.0-18.0); LYMPH# 0.55 X1000 (1.2-3.4); LYMPH% 12.7 % (20.5-51.1); MCH 33.2 PG (27-31); MCHC 33.8 g/dL (33-37); MCV 98.2 FL (81-99); MONO# 0.39 X1000 (0.11-0.59); NEUT# 3.36 X1000 (1.4-6.5); NEUT% 77.4 % (42.2-75.2); PLT 128 X1000 (130-400); WBC 4.34 X1000 (4.8-10.8)
--- NOTE | 2019-08-30 12:39 | Diag Imaging Result Doc PS360 ---
EXAM: CT THORAX/ABD/PELVIS W/CON HISTORY: TRAUMA TECHNIQUE: 1. CT chest with intravenous contrast 2. CT abdomen and pelvis with intravenous contrast COMPARISON: None. FINDINGS: Chest: No pleural effusions. No aortic dissection. No pneumothoraces. No lung contusion. The heart is enlarged and there are sternal wires. Emphysema is present. Abdomen and pelvis: No hepatic or splenic laceration. Normal enhancement of the kidneys. No retroperitoneal hematoma. Normal gallbladder, pancreas, and adrenal glands. No aortic aneurysm. No bowel obstruction. Urinary bladder is only mildly distended. No extravasation. There are fractures through the left superior and inferior pubic rami. There is extension into the pubic symphysis. No widening of the pubic symphysis. Left pelvic hematoma measuring 3.1 x 4.2 cm. Fracture adjacent to the anterior column of the left hip. Neither hip is dislocated. Fracture through the left side of the sacrum. No widening of the sacroiliac joint. IMPRESSION: Chest: No injury Abdomen and pelvis: Fracture to the left sacrum as well as the left superior and inferior pubic rami This exam was performed using automated exposure control, adjustment of mA or kV according to patient size, and/or use of iterative reconstruction technique. Electronically signed by Medhat Jiang 08/30/2019 12:37 PM
[2019-08-30 12:47] LABS: AGAP 12; ALB/GLOB RATIO 1.2; ALBUMIN 3.3 g/dL (3.5-5.0); ALKALINE PHOSPHATASE 62 U/L (32-122); BUN 9 mg/dL (8-22); CALCIUM 7.8 mg/dL (8.8-10.2); CHLORIDE 95 mmol/L (98-107); COSMO 261; ESTIMATED GFR > 60; GLUCOSE 95 mg/dL (70-104); GOT 31 U/L (10-34); GPT 18 U/L (10-44); POTASSIUM 3.6 mmol/L (3.5-5.1); SODIUM 131 mmol/L (136-145); TCO2 24 mmol/L (25-35); TOTAL BILIRUBIN 0.83 mg/dL (0.20-1.00)
[2019-08-30 12:49] LABS: INR 0.95; PROTIME 12.8 Seconds (11.0-16.0); PTT 33.3 Seconds (22.3-41.8)
[2019-08-30] MEDS ORDERED: ZOFRAN IV PRN (14:37)
[2019-08-30] MEDS ORDERED: NS 500 ML IV ONE (14:49)
[2019-08-30] MEDS: FOLIC ACID PO SCH (15:00)
--- NOTE | 2019-08-30 15:08 | HISTORY AND PHYSICAL ---
HISTORY OF PRESENT ILLNESS: Mr. Maldonado is a 59-year-old who apparently fell off a roof 2 days ago and he came in because he was hurting. They found a fracture in his right arm and apparently a pubic rami fracture as well, and they put a cast, a splint on his right arm. They noticed he was acting inappropriately, somewhat lethargic. He was oriented x3, but seemed to be inappropriate in his speech and a little bit confused, and apparently he drinks quite a bit of alcohol. He smokes and takes a lot of tianaa, so we are going to admit for metabolic encephalopathy and check his electrolytes and thyroid and B12 and folate and check an ammonia level as well. PAST MEDICAL HISTORY: 1. He has a history of alcohol abuse. 2. Atrial fibrillation. 3. 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 4. Smoking. 5. COPD. 6. Hypertension. 7. Reflux disease. 8. He was admitted with diastolic heart failure in the past. ALLERGIES: None. PAST SURGICAL HISTORY: None. SOCIAL HISTORY: He lives alone. Positive for tobacco and drinks quite a bit of alcohol, at least a 6-pack every day by previous report. FAMILY HISTORY: No history of heart disease, diabetes, or cancer in first-degree relatives. REVIEW OF SYSTEMS: Constitutional: There is no report of weight loss or gain or fever or chills. Of course I am not sure how accurate his review of systems is at this point. Respiratory: No respiratory difficulty come. Cardiac: No chest pain. Gastrointestinal/Genitourinary: No change in bowels or urination. Musculoskeletal and Neurologic: Hurting in his right arm and in his pelvic area. Endocrinologic/Hematologic: No significant history. PHYSICAL EXAMINATION: VITAL SIGNS: Temperature 98.2 degrees, pulse 116, respirations 20, blood pressure 103/62. HEENT: Pupils are equal and round. LUNGS: Clear in all lung taylor. CARDIOVASCULAR: Regular rhythm and rate without murmur or S3. ABDOMEN: Soft. SKIN: Warm and dry. URINE OUTPUT: 2000 mL. ASSESSMENT AND PLAN: 1. A CT of his abdomen, fracture of the left sacrum as well as left superior and inferior pubic rami, in quite a bit of pain. He had a CT of the head and cervical spine, and there was no acute injury. His wrist showed fracture of the distal radius. 2. Global encephalopathy, metabolic encephalopathy. I assume this is from a combination of alcohol and tianaa. We will watch, keep him on a monitor and try and minimize sedation. 3. History of chronic obstructive pulmonary disease. 4. History of hypertension. 5. History of endocarditis, mitral valve disease secondary to endocarditis. We will continue his home medicines. 6. We will probably put him on thiamine 100 mg daily, and we will check his electrolytes, ammonia level, thyroid, B12, folate. We will give him normal saline and run it at 85 mL an hour. I think we will get a urine drug screen and also check his ethanol level. cc: Horacio Sagastume MD
[2019-08-30] MEDS ORDERED: MORPHINE ONE (15:30)
[2019-08-30] MEDS: THIAMINE IM SCH (15:32)
[2019-08-30 16:18] LABS: FREE T4 1.34 ng/dL (0.93-1.70)
[2019-08-30] MEDS: ULTRAM PO PRN ×2 (17:51→23:48)
[2019-08-30 17:56] LABS: UR AMPHETAMINES QUAL NONE DETECTED (NONE DETECT); UR BARBITUATES QUAL NONE DETECTED (NONE DETECT); UR BENZODIAZEPIN QUAL NONE DETECTED (NONE DETECT); UR CANNABINOIDS QUAL NONE DETECTED (NONE DETECT); UR COCAINE QUAL NONE DETECTED (NONE DETECT); UR METHADONE QUAL NONE DETECTED (NONE DETECT); UR OPIATES QUAL NONE DETECTED (NONE DETECT); UR OXYCODONE QUAL NONE DETECTED (NONE DETECT); UR PCP QUAL NONE DETECTED (NONE DETECT)
--- NOTE | 2019-08-30 20:10 | ORTHOPAEDICS CONSULTATION ---
DATE: 08/30/2019 CHIEF COMPLAINT: Fall off roof with arm pain and pelvic pain. HISTORY OF PRESENT ILLNESS: This is a 59-year-old male who came into the emergency department today at [facility] for complaints of a fall off a roof and landed on his left wrist and pelvis. He reports that this did happen on Friday, and he has not been able to walk comfortably since. Reports to me that he is unsure if he lost consciousness. After evaluation by the emergency department physician, orthopedics was consulted to come see the patient. PAST MEDICAL HISTORY: CHF, hypertension, COPD, alcohol abuse. SOCIAL HISTORY: Patient reports smoking cigarettes 1 pack per day. Also reports that he does drink alcohol daily. ALLERGIES: There are no known drug allergies. REVIEW OF SYSTEMS: A 14-point review of systems was done, and pertinent positives as listed in HPI. PAST SURGICAL HISTORY: Patient denies. PHYSICAL EXAMINATION: Vital signs: Temperature 97.8 degrees, pulse rate 118, respiratory rate 20, blood pressure 132/74, oxygen is 95% on room air. HEENT: Atraumatic, normocephalic. Pupils are equal and round and sluggish. Lungs: There is equal chest expansion, rise and fall. Cardiovascular: There is regular rate and rhythm at this time. Abdomen: Soft, nontender. Skin: Warm and dry. Extremity exam: Left upper extremity: There is good radial pulse left upper extremity. There is good sensation. There is tenderness in her distal radius. The patient is now in a sugar-tong splint. There is 3/5 film painter strength. The patient can move all fingers without difficulty. Back Exam: There is no tenderness along the C-spine, T-spine, or L-spine. There is good range of motion of bilateral hips. There is tenderness upon squeezing the pelvis. IMAGING: X-rays of the left wrist show a transverse fracture through the distal radius with compaction. There is minimal displacement. Shoulder x-ray shows no acute bony injury. Pelvis films show fractures to the left superior and inferior pubic rami, which are stable. CT of cervical spine was performed and showed no acute intracranial abnormality or abnormality of the cervical spine. CT confirmed left superior and inferior pubic rami fracture of the pelvis. MEDICATIONS: The patient denies medications at this time. ASSESSMENT: Fracture of the left sacrum with left superior and inferior pubic rami fractures. Also left distal radius fracture. PLAN: We will keep him in the sugar-tong splint at this time. He will need to follow up in office for repeat x-rays on that in 1 week. As far as his superior and inferior pubic rami fractures and sacral fractures, he will need to remain using a walker to allow these fractures to heal. These will be quite painful. We will also need follow-up x-rays of this in the office. We will follow him while he is in the hospital and check back on him in the office. Dictated by SILVESTRE Harry for Amilcar Olmstead MD cc: SILVESTRE Harry MD
[2019-08-30] MEDS: NS 500 ML IV SCH (20:55)
[2019-08-30] MEDS: ATIVAN IV PRN ×2 (20:55→23:56)
[2019-08-31] MEDS: ATIVAN IV PRN ×2 (04:15→11:01)
[2019-08-31] MEDS: NS 500 ML IV SCH (05:51)
[2019-08-31 06:54] LABS: BASO# 0.01 X1000 (0.0-0.2); BASO% 0.2 % (0.0-0.8); EOS# 0.03 X1000 (0.0-0.7); EOS% 0.6 % (0.0-10.0); HEMATOCRIT 29.3 % (42.0-52.0); IMM GRAN# 0.02 X1000 (0.0-0.04); IMM GRAN% 0.4 % (0.0-0.5); LYMPH# 0.99 X1000 (1.2-3.4); LYMPH% 19.6 % (20.5-51.1); MCH 33.4 PG (27-31); MCHC 34.1 g/dL (33-37); MONO% 9.9 % (1.7-9.3); MPV 9.7 FL (7.4-10.4); NEUT# 3.49 X1000 (1.4-6.5); NEUT% 69.3 % (42.2-75.2); PLT 168 X1000 (130-400); RBC 2.99 XMIL (4.7-6.1); RDW 13.3 % (11.5-14.5); WBC 5.04 X1000 (4.8-10.8)
[2019-08-31 07:14] LABS: AGAP 10; ALB/GLOB RATIO 1.2; ALBUMIN 3.6 g/dL (3.5-5.0); ALKALINE PHOSPHATASE 67 U/L (32-122); BUN 9 mg/dL (8-22); CALCIUM 8.2 mg/dL (8.8-10.2); CHLORIDE 99 mmol/L (98-107); COSMO 264; CREATININE 0.8 mg/dL (0.7-1.2); ESTIMATED GFR > 60; GLUCOSE 110 mg/dL (70-104); GOT 41 U/L (10-34); GPT 21 U/L (10-44); POTASSIUM 3.7 mmol/L (3.5-5.1); SODIUM 132 mmol/L (136-145); TCO2 23 mmol/L (25-35); TOTAL BILIRUBIN 1.02 mg/dL (0.20-1.00); TOTAL PROTEIN 6.6 g/dL (6.3-8.3)
[2019-08-31] MEDS: ULTRAM PO PRN ×2 (07:30→13:23)
[2019-08-31] MEDS: THIAMINE IM SCH (10:55)
[2019-08-31] MEDS: FOLIC ACID PO SCH (10:56)
[2019-08-31 11:43] VITALS: BP 125/73
--- NOTE | 2019-08-31 11:45 | ORTHOPAEDICS PROGRESS NOTE ---
DATE: 08/30/2019 Mr. Maldonado is seen today status post left distal radius fracture and left-sided pubic rami and sacral fractures. He has removed this should tong splint from his left upper extremity and is noncompliant wearing the brace. We will make arrangements to get him a removable brace and I have instructed him to leave it on at all times. He will need to be mobilized partial weightbearing or touchdown weightbearing left lower extremity with a platform walker. I will be available recheck him on or Friday. We will have therapy mobilize him in the interim. cc: Amilcar Olmstead MD
--- NOTE | 2019-08-31 20:35 | DISCHARGE SUMMARY ---
ADMISSION DATE: 08/30/2019 DISCHARGE DATE: 08/31/2019 DISPOSITION: To home. FOLLOWUP: Will be with Dr. Gannon. CONSULTATIONS DURING THIS ADMISSION: Orthopedics was consulted, patient was seen by Dr. Olmstead and Dr. Gannon. INVASIVE PROCEDURES DURING THIS ADMISSION: None. IMAGING STUDIES OF SIGNIFICANCE: A CT scan of the thorax, abdomen and pelvis showed no injury in the chest, abdomen fracture to the left sacrum, as well as the left superior and inferior pubic rami. A CT scan of the head and cervical spine showed no acute disease. Shoulder x-ray showed no acute pathology. Wrist showed distal fracture to the distal left radius fracture. ADMISSION DIAGNOSES: 1. Fracture of left sacrum. 2. Global encephalopathy. 3. Chronic obstructive pulmonary disease. 4. History of mitral valve endocarditis. DIAGNOSIS AT THE TIME OF DISCHARGE: 1. Alcohol use and abuse with suspected withdrawal symptoms. 2. Altered mental status of multifactorial etiology including metabolic encephalopathy, alcohol withdrawal. 3. Status post mechanical fall resulting in a left sacral,, left superior and inferior pubic rami fractures, and a left distal radius fracture. PRESENTING COMPLAINT: Mr. Maldonado is a 59-year-old male with multiple comorbidities who presented to the emergency department because of pains to his left shoulder, left wrist and left hip. He said he fell off a roof. He said he tried to catch a co-worker who was falling off and in the attempt he fell as well, hitting the ground with his head, but he denied any loss of consciousness. He did feel slightly fuzzy afterwards. Upon presenting to the emergency department, a CT scan of the brain did not show any acute pathology. He did have multiple bone fractures, so he was admitted for further medical care. HOSPITAL COURSE: Mr. Maldonado was admitted to the surgical floor, was evaluated by Orthopedics on the day of admission. Subsequently today he has been evaluated by both Dr. Olmstead and Dr. Gannon. From their standpoint patient could be discharged and follow up with them. Medically Mr. Maldonado is clinically stable. Vitals: Blood pressure is 125/73, pulse of 103, respirations 18, temperature 98.7 degrees. I have also reviewed his laboratory data CBC is unremarkable. Chemistry showed a sodium of 132, otherwise everything else is fine. We think he is clinically stable to be discharged and that he will need to follow up with orthopedics. Mr. Maldonado has been advised on alcohol cessation as well as tobacco cessation and the need to have a regular primary care doctor for regular checkups and followup. All of the discharge instructions have been discussed with him. The recommendations from Orthopedics were also shared with him. He voiced understanding. Time spent for discharge is 35 minutes. cc: Champ Beltran MD
== END 2019-08-31 16:29 | disposition home or self-care (01) | DRG 551 ==
LOC: ED 10:34 → SUATTDRO 15:21 → 4N 15:21
PROVIDERS: ATTEND Internal Medicine

== ENCOUNTER 2019-09-03 11:09 | Inpatient (IN) ==
[2019-09-03] MEDS ORDERED: TORADOL IV ONE (11:38)
[2019-09-03] MEDS ORDERED: NS 1,000 ML IV ONE (11:38)
[2019-09-03] MEDS ORDERED: CARDIZEM IV ONE (11:38)
[2019-09-03 12:35] LABS: ALLEN TEST YES; BE -2.5 mmoll (-3.0-3.0); BLOOD TYPE ARTERIAL; HCO3-(ACT) 22.9 mmoll (20.0-26.0); O2(CT) 13.4 mL/dL (15.0-23.0); O2HB 91.1 % (95.0-99.0); PCO2(98.6) 26 mmHg (35-45); PO2(98.6) 80 mmHg (60-100); SAMPLE BLOOD; SAO2 98.5 % (95.0-100.0); THB 10.4 g/dL (11.5-17.4); pH(98.6) 7.49 (7.35-7.45)
[2019-09-03 12:37] LABS: MODALITY ROOM AIR
--- NOTE | 2019-09-03 12:43 | Diag Imaging Result Doc PS360 ---
CHEST-PORTABLE - 09/03/2019 INDICATION: sob COMPARISON: 08/11/2019 FINDINGS: Stable sternotomy wires and valve replacement. Heart size and pulmonary vascularity is normal. Stable COPD changes. No infiltrates or edema. No pneumothorax or pleural effusion. IMPRESSION: COPD. No acute process. Electronically signed by Walter Radford 09/03/2019 12:41 PM
--- NOTE | 2019-09-03 12:44 | Diag Imaging Result Doc PS360 ---
WRIST COMPLETE LEFT - 09/03/2019 INDICATION: recent fracture, non-compliant splint TECHNIQUE: Three views COMPARISON: 08/30/2019 FINDINGS: There is no change in the nondisplaced distal radius fracture. IMPRESSION: No change in the nondisplaced distal radius fracture. Electronically signed by Walter Radford 09/03/2019 12:41 PM
--- NOTE | 2019-09-03 12:44 | Diag Imaging Result Doc PS360 ---
XRAY HIP UNILATERAL RT - 09/03/2019 INDICATION: recent traum, new right hip pain TECHNIQUE: Two views COMPARISON: None FINDINGS: Bones are intact and normally aligned. Joint spaces and soft tissues are clear. IMPRESSION: Negative exam. Electronically signed by Walter Radford 09/03/2019 12:42 PM
--- NOTE | 2019-09-03 12:49 | Diag Imaging Result Doc PS360 ---
XRAY HIP UNILATERAL LT - 09/03/2019 INDICATION: decreased movement TECHNIQUE: Two views COMPARISON: 08/30/2019 FINDINGS: There are stable fractures of the left superior and inferior pubic rami. No change. IMPRESSION: No change from prior. Electronically signed by Walter Radford 09/03/2019 12:47 PM
[2019-09-03 12:55] LABS: BASO# 0.02 X1000 (0.0-0.2); BASO% 0.4 % (0.0-0.8); EOS# 0.12 X1000 (0.0-0.7); EOS% 2.7 % (0.0-10.0); HEMATOCRIT 29.6 % (42.0-52.0); HEMOGLOBIN 10.2 g/dL (14.0-18.0); IMM GRAN# 0.02 X1000 (0.0-0.04); IMM GRAN% 0.4 % (0.0-0.5); LYMPH# 1.11 X1000 (1.2-3.4); LYMPH% 24.7 % (20.5-51.1); MCH 33.9 PG (27-31); MCHC 34.5 g/dL (33-37); MCV 98.3 FL (81-99); MONO# 0.25 X1000 (0.11-0.59); MONO% 5.6 % (1.7-9.3); MPV 9.3 FL (7.4-10.4); NEUT# 2.98 X1000 (1.4-6.5); NEUT% 66.2 % (42.2-75.2); PLT 207 X1000 (130-400); RBC 3.01 XMIL (4.7-6.1); RDW 14.1 % (11.5-14.5)
[2019-09-03 13:05] LABS: INR 1.3; PROTIME 16.4 Seconds (11.0-16.0)
[2019-09-03 13:06] LABS: PTT 36.4 Seconds (22.3-41.8)
--- NOTE | 2019-09-03 13:18 | EKG Report ---
Test Performed on : 09/03/2019 12:53:00 PM Test Reason : afib Blood Pressure : / mmHG Vent. Rate : 097 BPM Atrial Rate : 105 BPM P-R Int : 000 ms QRS Dur : 096 ms QT Int : 358 ms P-R-T Axes : 000 073 073 degrees QTc Int : 454 ms Atrial fibrillation. Abnormal ECG When compared with ECG of 11-AUG-2019 07:31, (Unconfirmed) No significant change was found Unconfirmed Result
[2019-09-03 13:24] LABS: AGAP 14; ALB/GLOB RATIO 1.2; ALBUMIN 3.1 g/dL (3.5-5.0); ALKALINE PHOSPHATASE 86 U/L (32-122); BUN 16 mg/dL (8-22); CALCIUM 7.9 mg/dL (8.8-10.2); CHLORIDE 97 mmol/L (98-107); CK PROFILE 108 U/L (24-204); COSMO 267; ESTIMATED GFR > 60; GLUCOSE 83 mg/dL (70-104); GOT 896 U/L (10-34); GPT 573 U/L (10-44); MAGNESIUM 1.9 mg/dL (1.5-2.7); POTASSIUM 3.7 mmol/L (3.5-5.1); SODIUM 133 mmol/L (136-145); TCO2 22 mmol/L (25-35); TOTAL BILIRUBIN 1.26 mg/dL (0.20-1.00); TOTAL PROTEIN 5.6 g/dL (6.3-8.3)
[2019-09-03 13:25] LABS: ACETONE SERUM NEGATIVE (NEGATIVE)
--- NOTE | 2019-09-03 14:53 | Diag Imaging Result Doc PS360 ---
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 No intracranial mass or hemorrhage. The skull is intact. The sinuses are clear. IMPRESSION: No acute process. This exam was performed using automated exposure control, adjustment of mA or kV according to patient size, and/or use of iterative reconstruction technique Electronically signed by Walter Radford 09/03/2019 2:51 PM
--- NOTE | 2019-09-03 14:58 | Diag Imaging Result Doc PS360 ---
CT ABD/PELVIS W/IV CONT ONLY - 09/03/2019 INDICATION: recent trauma with pelvis fracture, dark urine COMPARISON: 08/30/2019 FINDINGS: The lung bases are clear and the heart size is normal. There is a stable left pelvic sidewall hematoma. This measures 4.8 x 3 cm. There is severe wall thickening of the urinary bladder suggesting cystitis. Note new or drainable fluid collections. No active contrast extravasation. There is moderate constipation. No bowel obstruction or inflammation. Abdominal organs all enhance normally. Stable fractures through the left sacral wing, left iliac wing, and superior and inferior pubic rami. IMPRESSION: 1. Stable extensive fractures through the left hemipelvis. 2. Stable left pelvic sidewall hematoma. 3. Worsening, severe inflammation of the urinary bladder suggesting cystitis. 4. This report was discussed with Dr. Pereira on 09/03/2019 at 2:50 PM and was readback. This exam was performed using automated exposure control, adjustment of mA or kV according to patient size, and/or use of iterative reconstruction technique Electronically signed by Walter Radford 09/03/2019 2:56 PM
[2019-09-03] MEDS ORDERED: ROCEPHIN 1 GM in NS 50 ML IV ONE (15:05)
--- NOTE | 2019-09-03 15:18 | PROVIDER DOCUMENTATION ---
This chart was entered by Lennie Bahena Scribe, acting as scribe for Abraham Francois MD. HPI-Musculoskeletal Pain/Inj - GENERAL Chief Complaint: Hip Pain Stated Complaint: HIP PAIN Time Seen by Provider: 09/03/19 11:24 Source: patient - HX OF PRESENT ILLNESS-MUSKULOSKELTAL Nature of Presenting Problem: Patient is a 59 year old male who presents with pain to pelvis and left wrist. States he was recently admitted for a pelvic and radial fracture. Reports leaving AMA from admission. States pain is worse. Quality of Pain: reports: aching Severity in ED: mild Onset/Duration: gradual Timing: still present, getting worse Any recent injury?: Yes Locality of Occurance: Home Similar Symptoms Previously?: Yes Recently seen or treated by another doctor?: Yes - HIP/PELVIS PAIN/INJURY Hip Pain Location: reports: pelvis Context / Method of Injury: reports: fall - UPPER EXTREMITY PAIN/INJURY Extremities Pain Location: wrist: left Context / Method of Injury: reports: fell Review of Systems - Adult - REVIEW OF SYSTEMS - ADULT Constitutional: reports: no symptoms reported Eyes: reports: no symptoms reported Ears, Nose, Mouth & Throat: reports: no symptoms reported Cardiovascular: reports: no symptoms reported Respiratory: reports: no symptoms reported Gastrointestinal: reports: no symptoms reported Genitourinary: reports: no symptoms reported Musculoskeletal: reports: see HPI, other (pain to pelvis and left wrist.). denies: back pain, neck pain Integumentary: reports: no symptoms reported Neurological: reports: no symptoms reported Psychiatric: reports: no symptoms reported Endocrine: reports: no symptoms reported Hematologic/Lymphatic: reports: no symptoms reported Allergic/Immunologic: reports: no symptoms reported All Other Systems: Reviewed and Negative Past History - Adult - PAST MEDICAL HISTORY-ADULT Review of Records: reports: Old Records Reviewed, Nursing Assessment Review, M edications Reviewed, Social history reviewed & non-contributory. Major Childhood Illnesses: reports: denies history Cardiovascular: reports: CHF, hyperlipidemia Respiratory: reports: COPD Gastrointestinal: reports: GERD Obstetrical/Gynecological: reports: denies history Genitourinary: reports: denies history Musculoskeletal: reports: denies history Neurological: reports: denies history Psychiatric: reports: denies history Endocrine/Immune: reports: denies history Other Conditions: reports: denies history - PRIOR SURGERIES/PROCEDURES Surgical/Procedure History: reports: none - IMMUNIZATION STATUS Childhood Immunizations: See Nurse Assessment Flu Vaccine: See Nurse Assessment - FAMILY HISTORY Family History: reviewed, not pertinent - SOCIAL HISTORY Smoking: cigarettes, greater than 1 pack/day Provider spent 3-5 mins advising pt. on dangers of tobacco.: Discussed manners to quit use, and f/u contacts for add'l counseling. Substance Use: denies Living Situation: group Physical Exam-Injury Related - Physical Exam-Injury Related Initial Vital Signs Reviewed: Yes General Appearance: alert, no apparent distress. negative: lethargic Head, Ears, Nose, Mouth & Throat: normocephalic/atraumatic, moist mucous membranes. negative: angioedema Neck: non-tender, normal inspection. negative: limited range of motion Respiratory: chest non-tender, lungs clear, normal breath sounds. negative: respiratory distress, wheezing Cardiovascular: no gallop, tachycardia, irregularly irregular. negative: systolic murmur Abdominal Exam: normal bowel sounds, non tender, soft. negative: rigid Extremity: non-tender, normal inspection. negative: pedal edema Integumentary: normal color, warm/dry. negative: ecchymosis, abrasion, laceration Neurologic: grossly normal. negative: aphasia, facial droop Psych/Mental Status: normal mood/affect, oriented x 3. negative: anxious Progress - PLAN OF CARE/RESULTS Progress/Plan/Lab Results: Vital Signs - 8 hr 09/03/19 11:12 09/03/19 13:00 Temperature 98.4 F Pulse Rate 127 H 97 H Respiratory Rate 20 18 Blood Pressure 109/67 105/66 O2 Sat by Pulse Oximetry 100 100 Laboratory Results - last 24 hr 09/03/19 09/03/19 09/03/19 12:30 12:45 12:45 WBC RBC Hgb Hct MCV MCH MCHC RDW Std Deviation Plt Count MPV Immature Gran % (Auto) Neut % (Auto) Lymph % (Auto) Hitchcock % (Auto) Eos % (Auto) Baso % (Auto) Immature Gran # (Auto) Neut # (Auto) Lymph # (Auto) Hitchcock # (Auto) Eos # (Auto) Baso # (Auto) PT INR PTT (Actin FS) Specimen Type ARTERIAL Sample Site R RADIAL pH 7.49 H pCO2 26 L pO2 80 HCO3 22.9 Base Excess -2.5 Oxyhemoglobin 91.1 L ABG O2 Sat (Calculated) 13.4 L ABG O2 Saturation 98.5 ABG Carboxyhemoglobin 6.50 H* ABG Methemoglobin 1.0 Horacio Test YES A-a O2 Difference 37.0 Total Hemoglobin 10.4 L Lactate 2.10 Blood Gas Modality ROOM AIR FiO2 % 21.0 Sodium 133 L Potassium 3.7 Chloride 97 L Carbon Dioxide 22 L Anion Gap 14 BUN 16 Creatinine 1.0 Estimated GFR/1.73 m2 > 60 BUN/Creatinine Ratio 16 Glucose 83 Calculated Osmolality 267 Calcium 7.9 L Magnesium 1.9 Total Bilirubin 1.26 H AST 896 H ALT 573 H Alkaline Phosphatase 86 Creatine Kinase 108 Troponin T Kue-O-Tfipnovtthd Pept Total Protein 5.6 L Albumin 3.1 L Globulin 2.5 Albumin/Globulin Ratio 1.2 Lipase Plasma Lactate Plasma/Serum Ethyl Alc Acetone Level NEGATIVE 09/03/19 09/03/19 09/03/19 12:45 12:45 12:45 WBC 4.50 L RBC 3.01 L Hgb 10.2 L Hct 29.6 L MCV 98.3 MCH 33.9 H MCHC 34.5 RDW Std Deviation 14.1 Plt Count 207 MPV 9.3 Immature Gran % (Auto) 0.4 Neut % (Auto) 66.2 Lymph % (Auto) 24.7 Hitchcock % (Auto) 5.6 Eos % (Auto) 2.7 Baso % (Auto) 0.4 Immature Gran # (Auto) 0.02 Neut # (Auto) 2.98 Lymph # (Auto) 1.11 L Hitchcock # (Auto) 0.25 Eos # (Auto) 0.12 Baso # (Auto) 0.02 PT INR PTT (Actin FS) Specimen Type Sample Site pH pCO2 pO2 HCO3 Base Excess Oxyhemoglobin ABG O2 Sat (Calculated) ABG O2 Saturation ABG Carboxyhemoglobin ABG Methemoglobin Horacio Test A-a O2 Difference Total Hemoglobin Lactate Blood Gas Modality FiO2 % Sodium Potassium Chloride Carbon Dioxide Anion Gap BUN Creatinine Estimated GFR/1.73 m2 BUN/Creatinine Ratio Glucose Calculated Osmolality Calcium Magnesium Total Bilirubin AST ALT Alkaline Phosphatase Creatine Kinase Troponin T Clc-U-Spwrzleczvz Pept 865 H Total Protein Albumin Globulin Albumin/Globulin Ratio Lipase Plasma Lactate 2.1 Plasma/Serum Ethyl Alc Acetone Level 09/03/19 09/03/19 09/03/19 12:45 12:45 12:45 WBC RBC Hgb Hct MCV MCH MCHC RDW Std Deviation Plt Count MPV Immature Gran % (Auto) Neut % (Auto) Lymph % (Auto) Hitchcock % (Auto) Eos % (Auto) Baso % (Auto) Immature Gran # (Auto) Neut # (Auto) Lymph # (Auto) Hitchcock # (Auto) Eos # (Auto) Baso # (Auto) PT 16.4 H INR 1.30 PTT (Actin FS) 36.4 Specimen Type Sample Site pH pCO2 pO2 HCO3 Base Excess Oxyhemoglobin ABG O2 Sat (Calculated) ABG O2 Saturation ABG Carboxyhemoglobin ABG Methemoglobin Horacio Test A-a O2 Difference Total Hemoglobin Lactate Blood Gas Modality FiO2 % Sodium Potassium Chloride Carbon Dioxide Anion Gap BUN Creatinine Estimated GFR/1.73 m2 BUN/Creatinine Ratio Glucose Calculated Osmolality Calcium Magnesium Total Bilirubin AST ALT Alkaline Phosphatase Creatine Kinase Troponin T < 0.010 Rrx-L-Nctgyaegzpr Pept Total Protein Albumin Globulin Albumin/Globulin Ratio Lipase 69 H Plasma Lactate Plasma/Serum Ethyl Alc Acetone Level Orders Category Date Time Status Nursing- Obtain EKG once Care 09/03/19 11:34 Active Saline Loc NOW Care 09/03/19 11:34 Active Wrist Splint DIRECTED Care 09/03/19 14:18 Active Regular Diet Diet 09/03/19 15:01 Active CHEST-PORTABLE [RAD] Stat Exams 09/03/19 11:[address] ABD/PELVIS W/IV CONT ONLY [CT] Stat Exams 09/03/19 11:[address] HEAD W/O CONTRAST [CT] Stat Exams 09/03/19 11:39 Completed WRIST COMPLETE LEFT [RAD] Stat Exams 09/03/19 11:36 Completed XRAY HIP UNILATERAL LT [RAD] Stat Exams 09/03/19 11:49 Completed XRAY HIP UNILATERAL RT [RAD] Stat Exams 09/03/19 11:37 Completed ABG [RESP] Routine Lab 09/03/19 12:30 Completed ACETONE SERUM [CHEM] Stat Lab 09/03/19 12:45 Completed ALCOHOL BLOOD Stat Lab 09/03/19 12:45 Completed BLOOD CULTURE [BLDCUL] Stat Lab 09/03/19 14:11 Results CBC WITH ELECTRONIC DIFF [HEME] Stat Lab 09/03/19 12:45 Completed CK PROFILE [SP CHEM] Stat Lab 09/03/19 12:45 Completed COMPREHENSIVE METABOLIC PANEL [CHEM] Stat Lab 09/03/19 12:45 Completed LACTATE, PLASMA [CHEM] Stat Lab 09/03/19 12:45 Completed LIPASE [CHEM] Stat Lab 09/03/19 12:45 Completed MAGNESIUM [CHEM] Stat Lab 09/03/19 12:45 Completed PRO B-NATRIURETIC PEPTIDE Stat Lab 09/03/19 12:45 Completed PROTIME WITH INR [COAG] Stat Lab 09/03/19 12:45 Completed PTT [COAG] Stat Lab 09/03/19 12:45 Completed TROPONIN T Stat Lab 09/03/19 12:45 Completed URINALYSIS W/POSS RFLX CULT [URINALYSIS] Stat Lab 09/03/19 11:35 Uncollected URINE DRUG SCREEN Stat Lab 09/03/19 11:35 Uncollected 0.9% Sodium Chloride Inj [Ns] 1,000 ml Med 09/03/19 11:38 Discontinued IV 999 mls/hr CefTRIAXONE [Rocephin] 1 gm Med 09/03/19 15:05 Active 0.9% Sodium Chloride Inj [Ns] 50 ml IV NOW Diltiazem [Cardizem] Med 09/03/19 11:38 Discontinued 25 mg IV NOW ONE Ketorolac [Toradol] Med 09/03/19 11:38 Discontinued 30 mg IV NOW ONE EKG [EKG] Stat Ther 09/03/19 11:34 Draft Result Diagrams: 09/03/19 12:45 09/03/19 12:45 - REASSESSMENT Reassessment #1 Time Reassessed: 15:13 Status: improving (Patient states he is feeling a little better after meds and fluids. Heart rate decreased without diltiazem. LFTs are newly increased from earlier this week) - EKG 1 Time of EKG reading by physician:: 12:53 EKG Read and Signed by:: Abraham Francois EKG Interpretation (*Must complete 3 of following elements*): Abnormal Rate: 97 Rhythm: A fib [place]: normal Comments: poor R wave; NSSTTWC - XRAY 1 XRAY Study: Chest Impression: See EMR Report ( CHEST-PORTABLE - 09/03/2019 INDICATION: sob COMPARISON: 08/11/2019 FINDINGS: Stable sternotomy wires and valve repl acement. Heart size and pulmonary vascularity is normal. Stable COPD changes. No infiltrates or edema. No pneumothorax or pleural effusion. IMPRESSION: COPD. No acute process. Electronically signed by Walter Radford 09/03/2019 12:41 PM 09/03/19 1241 Interpreting Physician: Walter Radford MD Dictated Date/Time: 09/03/19 1241 cc: Abraham Francois MD; Bob Alejandra MD) 2 XRAY: Left XRAY Study: Wrist Impression: See EMR Report ( WRIST COMPLETE LEFT - 09/03/2019 INDICATION: recent fracture, non-compliant splint TECHNIQUE: Three views COMPARISON: 08/30/2019 FINDINGS: There is no change in the nondisplaced distal radius fracture. IMPRESSION: No change in the nondisplaced distal radius fracture. Electronically signed by Walter Radford 09/03/2019 12:41 PM 09/03/19 1241 Interpreting Physician: Walter Radford MD Dictated Date/Time: 09/03/19 1241 cc: Abraham Francois MD; Bob Alejandra MD) 3 XRAY: Right XRAY Study: Hip Impression: See EMR Report ( XRAY HIP UNILATERAL RT - 09/03/2019 INDICATION: recent traum, new right hip pain TECHNIQUE: Two views COMPARISON: None FINDINGS: Bones are intact and normally aligned. Joint spaces and soft tissues are clear. IMPRESSION: Negative exam. Electronically signed by Walter Radford 09/03/2019 12:42 PM 09/03/19 1242 Interpreting Physician: Walter Radford MD Dictated Date/Time: 09/03/19 1242 cc: Abraham Francois MD; Bob Alejandra MD) 4 XRAY: Left XRAY Study: Hip Impression: See EMR Report (XRAY HIP UNILATERAL LT - 09/03/2019 INDICATION: decreased movement TECHNIQUE: Two views COMPARISON: 08/30/2019 FINDINGS: There are stable fractures of the left superior and inferior pubic rami. No change. IMPRESSION: No change from prior. 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 No intracranial mass or hemorrhage. The skull is intact. The sinuses are clear. IMPRESSION: No acute process. This exam was performed using automated exposure control, adjustment of mA or kV according to patient size, and/or use of iterative reconstruction technique Electronically signed by Walter Radford 09/03/2019 2:51 PM 09/03/19 1451 Interpreting Physician: Walter Radford MD Dictated Date/Time: 09/03/19 1450 cc: Abraham Francois MD; Bob Alejandra MD) 2 CT Study: Abdomen, Pelvis Impression: See EMR Report ( CT ABD/PELVIS W/IV CONT ONLY - 09/03/2019 INDICA TION: recent trauma with pelvis fracture, dark urine COMPARISON: 08/30/2019 FINDINGS: The lung bases are clear and the heart size is normal. There is a stable left pelvic sidewall hematoma. This measures 4.8 x 3 cm. There is severe wall thickening of the urinary bladder suggesting cystitis. Note new or drainable fluid collections. No active contrast extravasation. There is moderate constipation. No bowel obstruction or inflammation. Abdominal organs all enhance normally. Stable fractures through the left sacral wing, left iliac wing, and superior and inferior pubic rami. IMPRESSION: 1. Stable extensive fractures through the left hemipelvis. 2. Stable left pelvic sidewall hematoma. 3. Worsening, severe inflammation of the urinary bladder suggesting cystitis. 4. This report was discussed with Dr. Pereira on 09/03/2019 at 2:50 PM and was readback. This exam was performed using automated exposure control, adjustment of mA or kV according to patient size, and/or use of iterative reconstruction technique Electronically signed by Walter Radford 09/03/2019 2:56 PM 09/03/19 1456 Interpreting Physician: Walter Radford MD Dictated Date/Time: 09/03/19 145 cc: Abraham Francois MD; Bob Alejandra MD) - CONSULTS/PCP/HOSPITALIST Notification #1 *Consult/PCP/Hospitalist*: SILVESTRE De Dios Time Discussed: 15:14 Consult Disposition: Will see in ED Departure - Departure Date of Disposition Decision: 09/03/19 Time of Disposition Decision: 15:14 DIAGNOSIS: Atrial fibrillation with rapid ventricular response, Pelvic hematoma in male, Elevated liver function tests Urinary tract infection Qualifiers: Urinary tract infection type: acute cystitis Hematuria presence: with hematuria Qualified Code(s): N30.01 - Acute cystitis with hematuria Left wrist fracture Qualifiers: Encounter type: subsequent encounter Fracture type: closed Fracture healing: with routine healing Qualified Code(s): S62.102D - Fracture of unspecified carpal bone, left wrist, subsequent encounter for fracture with routine healing Closed fracture of left pelvis Qualifiers: Encounter type: subsequent encounter Pelvic bone location: pubis Sublocation of pubis: unspecified portion of pubis Fracture healing: with routine healing Qualified Code(s): S32.502D - Unspecified fracture of left pubis, subsequent encounter for fracture with routine healing Closed fracture of sacrum Qualifiers: Encounter type: subsequent encounter Zone of sacrum fracture: unspecified portion of sacrum Fracture healing: with routine healing Qualified Code(s): S32.10XD - Unspecified fracture of sacrum, subsequent encounter for fracture with routine healing Disposition: ADMITTED INPATIENT 09 Certified Medical Emergency: Emergent Condition: Fair Referrals and Follow-Ups: Bob Alejandra MD [Primary Care Provider] - - Critical Care Note This patient required my direct & personal management of CC.: Yes Total Time (mins): 40 Critical Care Statement: This patient required my direct personal management to treat or rule out processes, the absence of which, could potentiallly result in sudden, clinically significant life or limb threatening deterioration. Attestation - Physician/ DALIA Attestation Patient care was provided by Advanced Practice Provider:: No The physician spent face to face time with patient:: Yes Advanced Practice Provider documentation review:: Supervising physician onsite and consulted in the evaluation and care of this patient. The physician did have a face to face encounter with the patient. This chart was documented by the indicated scribe, (Lennie Bahena Scribe) and accurately reflects the services I performed and decisions made by me, Abraham Francois MD, as attested by the provider's signature.
[2019-09-03 15:22] LABS: URINE SOURCE CLEAN CATCH
[2019-09-03 15:36] LABS: BILIRUBIN URINE NEGATIVE (NEGATIVE); BLOOD URINE NEGATIVE (NEGATIVE); COLOR YELLOW; GLUCOSE URINE NEGATIVE (NEGATIVE); KETONE URINE NEGATIVE (NEGATIVE); LEUKOCYTES URINE NEGATIVE (NEGATIVE); NITRITE URINE NEGATIVE (NEGATIVE); PROTEIN URINE TRACE mg/dL (NEGATIVE); SP GRAVITY URINE 1.031; TURBIDITY URINE CLEAR (CLEAR); UROBILINOGEN URINE 6 mg/dL (NORMAL)
[2019-09-03 15:38] LABS: UR EPITHELIAL CELLS <10 /HPF (<10); URINE BACTERIA NEGATIVE /HPF; URINE RBC <10 /HPF (<10); URINE WBC <10 /HPF (<10)
[2019-09-03 16:04] LABS: UR AMPHETAMINES QUAL NONE DETECTED (NONE DETECT); UR BARBITUATES QUAL NONE DETECTED (NONE DETECT); UR BENZODIAZEPIN QUAL NONE DETECTED (NONE DETECT); UR CANNABINOIDS QUAL NONE DETECTED (NONE DETECT); UR COCAINE QUAL NONE DETECTED (NONE DETECT); UR METHADONE QUAL NONE DETECTED (NONE DETECT); UR OPIATES QUAL PRESUMPTIVE POSITIVE (NONE DETECT); UR OXYCODONE QUAL NONE DETECTED (NONE DETECT); UR PCP QUAL NONE DETECTED (NONE DETECT)
[2019-09-03] MEDS ORDERED: ZOFRAN IV PRN (16:53)
[2019-09-03] MEDS: MORPHINE IV PRN ×2 (17:43→23:30)
[2019-09-03] MEDS ORDERED: M.V.I.-12 10 ML, FOLIC ACID 1 MG, MAGNESIUM SULFATE 1 GM, THIAMINE 100 MG in NS 1,000 ML IV ONE (18:00)
--- NOTE | 2019-09-03 19:13 | Diag Imaging Result Doc PS360 ---
US ABDOMEN-COMPLETE - 09/03/2019 INDICATION: elevated LFTs and lipase COMPARISON: CT from earlier today FINDINGS: The liver, gallbladder, spleen, pancreas, and both kidneys are normal. Common bile duct measures 4 mm. Aorta, IVC, and main portal vein are patent. IMPRESSION: Negative exam. Electronically signed by Walter Radford 09/03/2019 7:11 PM
--- NOTE | 2019-09-03 20:01 | HISTORY AND PHYSICAL ---
ADDENDUM: The patient was seen and examined by me [id number]. All the laboratory, vital signs and images were reviewed. The patient presented to the emergency department due to pain at the level of the pelvic area and left wrist. He was actually recently admitted due to pelvic and radial fracture, but he left AMA. We re-scanned this patient, and there are stable extensive fractures throughout the left hemipelvis, stable left pelvic sidewall hematoma, and worsening severe inflammation of the urinary bladder suggesting cystitis, but this patient is not complaining of pain during urination or burning sensation. We are going to put him on fluids, and we are going to request a urinalysis anyway with cultures. This patient basically has not been able to eat or move because of the severe pain mostly at the level of the pelvis and left wrist. Clinically he seems to be a little bit dehydrated. His mouth is dry. He is complaining of lower abdominal discomfort close to the fracture area. What is worrisome for me is the elevation of the AST, ALT and basically liver enzymes. They have been elevated before but not that high. I will ask for a hepatitis panel, and I will hydrate this patient to see how he does. Also, we will get an abdominal ultrasound since this patient's lipase level is slightly elevated as well, but he is not complaining of nausea or vomiting. He received a dose of ceftriaxone in the emergency department. He is on atrial fibrillation, but he is not taking his home medications including anticoagulation. I had a large conversation with this patient about this, and he seems to understand, but apparently he cannot afford the medications. The patient will be admitted to the floor. PHYSICAL EXAMINATION: Shows lower abdominal discomfort mostly on the left side. He is also having problems to move his left lower extremity due to pain. His left wrist has been placed with a splint, but he is able to move all his fingers. I agree with the rest of the nurse practitioner's assessment and plan. I will continue with IV fluids, banana bag. Per the patient, he is not drinking anymore, and it has been about a year, so the possibility of liver cirrhosis and/or fatty liver is suspected. cc: Carlos Wu MD
[2019-09-03] MEDS: ELIQUIS PO SCH (20:22)
[2019-09-03] MEDS: NORCO-5 PO PRN (20:22)
--- NOTE | 2019-09-03 20:24 | HISTORY AND PHYSICAL ---
CHIEF COMPLAINT: Hip pain. HISTORY OF PRESENT ILLNESS: This is a 59-year-old gentleman with a history of a left sacral as well as left superior and inferior pubic rami fracture on August 30 after a fall, a left distal radius fracture, COPD, and chronic alcohol abuse. He presents to the emergency room today complaining of left hip pain and left wrist pain. Mr. Maldonado was hospitalized from August 30 to August 31 for the hip fracture and left wrist fracture. He left against medical advice on the night of the . He returns today stating that he could not tolerate the hip pain and wants help. CT of the abdomen and pelvis revealed stable extensive fractures throughout the left hemipelvis along with a stable left pelvic sidewall hematoma with left wrist x-ray revealing no change in the nondisplaced distal radius fracture. Mr. Maldonado states that he was able to walk out of the hospital on the with some pain, and he has been having to have assistance walking at home. Prior to coming to the emergency room today, he states he stood to go to the bathroom and felt that the pain was extreme. Therefore, he is presenting for pain management. Mr. Maldonado has a history of alcohol abuse, stating that he drinks quite a bit of alcohol stating that he drinks at least a 6-pack daily. He will drink more if he can get it. He does state that his last drink was this morning prior to coming to the emergency room. PAST MEDICAL HISTORY: 1. Alcohol abuse. 2. Atrial fibrillation. 3. 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 4. COPD. 5. Hypertension. 6. Gastroesophageal reflux disease. 7. Diastolic heart failure with an ejection fraction of 50% to 55% in July 2018. PAST SURGICAL HISTORY: None. FAMILY HISTORY: Hypertension and COPD in grandparents. ALLERGIES: No known drug allergies. HOME MEDICATIONS: A list will be obtained by the nursing staff, and once verified, we will review and restart as appropriate. REVIEW OF SYSTEMS: Discussed with the patient with pertinent positives stated in the HPI. He denied any syncope or dizziness, any chest pain or palpitations, any shortness of breath, cough, fever, chills, night sweats, any nausea, vomiting, diarrhea, constipation, black or bloody vomitus or stools, hematuria, dysuria, frequency or urgency. PHYSICAL EXAMINATION: GENERAL: This is a 59-year-old gentleman who is sitting up on the stretcher in the emergency room in no distress. VITAL SIGNS: Blood pressure is 105/66 with a heart rate of 90, respirations 18, temperature 98.4 degrees with room air saturation 100%. HEENT: Head is normocephalic, atraumatic. Mucous membranes are moist. NECK: Supple with trachea midline. CARDIOVASCULAR: Irregularly irregular rate and rhythm. S1 and S2 appreciated. He has no lower extremity edema with peripheral pulses palpable x4 extremities. PULMONARY: Breath sounds are clear with no increased work of breathing noted. Chest rises and falls symmetric with respiration. GASTROINTESTINAL: Abdomen is soft, nontender, nondistended with bowel sounds in all 4 quadrants. NEUROLOGIC: He is alert and oriented x3. SKIN: Warm and dry. LABORATORY DATA: WBC is 4.5 with hemoglobin 10.2, hematocrit 29.6, and platelets of 207,000. INR is 1.3. Sodium 133, potassium 3.7, BUN 16, creatinine 1 with a glucose of 83. Total bilirubin is 1.26 with AST 896, ALT 573, alkaline phosphatase 86, lipase is 69. Urinalysis is essentially negative. Urine drug screen is presumptive positive for opiates. Acetone is negative. Blood cultures and urine culture pending. CT of the abdomen and pelvis revealed stable extensive fractures throughout the left hemipelvis, stable left pelvic sidewall hematoma, worsening severe inflammation of bladder suggesting cystitis. IMAGING: Chest x-ray revealed COPD, no acute processes. ASSESSMENT AND PLAN: 1. Left hip pain in a patient who sustained extensive left hemipelvis fractures on August 30 after a fall from a roof. The patient was evaluated by Orthopedics on the , and their recommendation was that he use a walker. He is weightbearing as tolerated to allow fractures to heal. We will consult physical therapy to continue, give pain control. 2. Distal left radius fracture, displaced. X-ray today revealed no change. A splint was applied in the emergency room. We will consult Orthopedics to re-evaluate. 3. Chronic obstructive pulmonary disease, aware. 4. Atrial fibrillation. Rate is controlled at this time. He will be placed on telemetry and will monitor. 5. Chronic diastolic heart failure. We are aware. We will check ins and outs. 6. Chronic anticoagulation. Mr. Maldonado has been prescribed chronic anticoagulation many times in the past. He states that he has not taken this. He was discharged on the with a prescription for Eliquis. We will restart as he is in atrial fibrillation after evaluating the pelvic hematoma on CT scan, which continues to be stable. 7. Hypertension. We will follow vital signs and treat as appropriate. 8. Alcohol abuse. He does admit to drinking daily with the last drink today. We will monitor for any signs of withdrawal. 9. Elevated liver function tests. Mr. Maldonado does have a history of alcoholism as well as intravenous drug use. In fact, he has had a history of endocarditis with damage to his mitral valve due to this. We will check an abdominal ultrasound as well as hepatitis profile. 10. Elevated lipase. We will keep him n.p.o. at present. Trend amylase and lipase in the morning and as stated above check abdominal ultrasound. Plan was discussed with Dr. Ren. Further treatments pending hospital course. Dictated by SILVESTRE Chavira for Carlos Wu MD cc: SILVESTRE Chavira MD
[2019-09-04] MEDS: ATARAX PO PRN ×2 (00:35→06:43)
[2019-09-04] MEDS: M.V.I.-12 10 ML, FOLIC ACID 1 MG, MAGNESIUM SULFATE 1 GM, THIAMINE 100 MG in NS 1,000 ML IV SCH ×2 (01:16→20:28)
[2019-09-04] MEDS: NORCO-5 PO PRN ×2 (02:30→08:38)
[2019-09-04] MEDS: MORPHINE IV PRN ×2 (03:31→07:44)
[2019-09-04 07:37] LABS: HEMATOCRIT 27.3 % (42.0-52.0); HEMOGLOBIN 9.4 g/dL (14.0-18.0); MCH 34.6 PG (27-31); MCHC 34.4 g/dL (33-37); MCV 100.4 FL (81-99); MPV 9.4 FL (7.4-10.4); RBC 2.72 XMIL (4.7-6.1); RDW 14.8 % (11.5-14.5); WBC 5.18 X1000 (4.8-10.8)
[2019-09-04 07:43] LABS: AGAP 10; ALB/GLOB RATIO 1.2; ALKALINE PHOSPHATASE 92 U/L (32-122); AMYLASE 123 U/L (20-200); BUN 16 mg/dL (8-22); CALCIUM 7.9 mg/dL (8.8-10.2); CHLORIDE 104 mmol/L (98-107); COSMO 274; CREATININE 0.9 mg/dL (0.7-1.2); ESTIMATED GFR > 60; GLUCOSE 116 mg/dL (70-104); GOT 433 U/L (10-34); GPT 446 U/L (10-44); LIPASE 80 U/L (13-60); POTASSIUM 3.8 mmol/L (3.5-5.1); SODIUM 136 mmol/L (136-145); TCO2 22 mmol/L (25-35); TOTAL BILIRUBIN 1.01 mg/dL (0.20-1.00); TOTAL PROTEIN 5.5 g/dL (6.3-8.3)
[2019-09-04] MEDS: NS 1,000 ML IV SCH ×3 (07:45→19:57)
[2019-09-04] MEDS: ELIQUIS PO SCH ×2 (10:57→20:29)
[2019-09-04] MEDS: DILAUDID IV PRN ×5 (10:57→23:38)
--- NOTE | 2019-09-04 12:35 | PROGRESS NOTE ---
DATE: 09/04/2019 SUBJECTIVE: This patient has problems sleeping and the morphine has not been controlling his pain. I will put this patient on Xanax and also I will stop the morphine and put him on hydromorphone, low dose, to see how he does. Even though the CT scan shows severe inflammation of the urinary bladder suggesting cystitis he is not having symptoms. He has pelvic area pain but likely due to the fractures and it is with mobilization, and he has a stable left pelvic sidewall hematoma. He does have elevated LFTs. He used to drink before but he stopped a year ago. OBJECTIVE: Vital Signs: Temperature 98.1, pulse 97, respiratory rate 16, blood pressure 116/74, and oxygen saturation 95% on room air. HEENT: Head normocephalic. No trauma. PERRLA. Neck: Supple. No JVD. No masses. Central trachea. Chest: Clear to auscultation. No wheezing. No rales. Abdomen: Soft, nontender, and nondistended. No hepatosplenomegaly. Extremities: He has pain at the level of the left upper extremity and he has a splint that has been applied in the Emergency Room. Also, he has pain in the pelvic area due to multiple fractures. Neurological: The patient is awake, alert, and oriented times 3. No focal deficit. LABORATORY: WBC 5.1, hemoglobin 9.4, hematocrit 27.3, and platelets 209. Sodium 136, potassium 3.8, chloride 104, bicarbonate 22, BUN 16, creatinine 0.9, glucose 116, calcium 7.9, AST 443, ALT 446, alkaline phosphatase 92, albumin 3, and lipase level 80. ASSESSMENT AND PLAN: 1. Intractable left inguinal area and left upper extremity pain due to extensive fractures throughout the left hemipelvis with stable left pelvic sidewall hematoma. We will continue with pain management. He needs to be on physical therapy which has been consulted already. We will try to control the pain and monitor this patient closely. 2. Extensive fractures through the left hemipelvis and nondisplaced distal radius fracture, as above. 3. Atrial fibrillation, rate controlled. We will continue with telemetry and medications. I will ask the nurse to call the PCP and/or his pharmacy to find out what kind of medications he is on; he has not been taking any. I put him back on Eliquis twice a day though. 4. History of mitral valve disease secondary to endocarditis. Aware. 5. History of chronic obstructive pulmonary disease, not in exacerbation. 6. Hypertension. Continue with the same management. 7. History of alcohol abuse. Apparently he told the nurse practitioner that he was drinking daily with the last drink the day of admission but he told me that he stopped drinking a year ago so we will monitor for any signs of withdrawal. He has been getting IV fluids as well as a banana bag, and Ativan as needed. His alcohol level is negative. 8. Anxiety. I have placed this patient on Xanax, low dose, as needed. 9. Elevated liver function tests and elevated pancreatic enzymes. For now we will monitor. He is not symptomatic and actually he is tolerating p.o. really well. His liver ultrasound is negative. cc: Carlos Wu MD MTDD
[2019-09-04] MEDS: XANAX PO PRN ×2 (12:42→21:22)
--- NOTE | 2019-09-04 16:42 | ORTHOPAEDICS CONSULTATION ---
DATE: 09/04/2019 SERVICE: Orthopedic Surgery. HOSPITAL RECEPTIONIST: Hospitalist. REASON FOR CONSULTATION: Pelvic fractures, as well as left distal radius fracture. PAST MEDICAL HISTORY: 1. Alcohol abuse. 2. Atrial fibrillation. 3. Endocarditis with mitral valve disease. 4. COPD. 5. Hypertension. 6. GERD. 7. Diastolic heart failure. PAST SURGICAL HISTORY: Open heart surgery last year. MEDICATIONS: Eliquis for open-heart surgery about 1 year ago. Patient states he has not been compliant with taking this until this recent fall. ALLERGIES: No known drug allergies. SOCIAL HISTORY: Patient lives in [place]. He smokes 1-1/2 packs of cigarettes per day. He states he drinks daily at least a six-pack of beer. 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 He is right- hand dominant. FAMILY HISTORY: Noncontributory. REVIEW OF SYSTEMS: Ten point review of systems was negative, unless otherwise in the history of present illness. CHIEF COMPLAINT: Left wrist and left pelvis pain. HISTORY OF PRESENT ILLNESS: Mr. Maldonado is a 59-year-old gentleman, who sustained an injury from a fall on 08/26/2019. He was seen at [facility] and left [facility]RY at that time. He was then seen at [facility] on the and again left HENRY. He presented back yesterday complaining of a pop in his pelvis and continued pain in the wrist and pelvis. Orthopedics was previously consulted on him for these injuries and plan for non operative treatment. He was initially placed in a sugar-tong splint. However, removed this 1 day after it was placed. Today, he states most of his pain is in the pelvis. He has been getting around at home ambulating without an assistive device. However, states he has to go very slow and use the wall to help with balance. He has been taking Eliquis for the last couple days. He denies any numbness, tingling or shooting pains down his arms or legs. He is right-hand dominant. PHYSICAL EXAMINATION: General: Mr. Maldonado is a 59-year-old male, who appears well nourished, well developed, no acute distress. He is awake, alert, and oriented x3. He is very polite and cooperative during examination. Vital Signs: Temperature 98.5 degrees Fahrenheit, heart rate is 114, respiratory rate 16, blood pressure is 114/70, O2 saturations 99% on room air. HEENT: Normocephalic and atraumatic. Respiratory: Nonlabored breathing. Cardiovascular: Regular rate and rhythm. Extremities: Examination of left upper extremity shows wrist immobilizer to be in place. Immobilizer was removed and skin is intact. Mild swelling around his distal radius. He is tender to palpation at the distal radius. Nontender over the ulnar side of the wrist. Nontender in his arm, elbow and hand. Motor is intact to AI, PI and ulnar nerve distribution. Sensation intact to light touch to median, radial, ulnar, axillary nerves. Radial pulse palpable and equal bilaterally. Examination of the left hemipelvis reveals skin to be intact. Patient has significant tenderness to palpation over the anterior and posterior aspects of the left hemipelvis. Nontender over the right side of the pelvis. No pain with log roll of the hip. He is nontender laterally over his greater trochanter. Nontender in his knee, leg, ankle and foot. No joint effusion in the knee. Motor is intact to quadriceps, hamstrings, EHL, tibialis anterior, gastrocsoleus complex. Sensation intact to light touch L3-S1. Dorsalis pedis pulse palpable and equal bilaterally. Thigh and calf are soft and compressible. LABS: White count 5.2, hemoglobin 9.4, hematocrit 27, platelets 209. IMAGIN. AP, lateral, and oblique views of the left wrist were obtained yesterday revealing an extra- articular distal radius fracture with good alignment on AP and oblique planes. He has some mild dorsal tilt of the fracture site of less than 5 degrees. Overall acceptable alignment. 2. CT scan of the abdomen and pelvis was reviewed and compared to prior CT scan of the pelvis on 08/30/2019 revealing no interval displacement of his pelvic fractures. He has left-sided superior and inferior pubic rami fractures, as well as a zone 1 sacrum fracture. He has no signs of instability posteriorly indicating his ligaments are intact and competent. 3. AP and lateral of the left hip were obtained and reviewed, again demonstrating superior and inferior pubic ramus fractures. No signs of femoral neck or intertrochanteric femur fracture. ASSESSMENT: A 59-year-old male with left extra-articular distal radius fracture and a left LC-1 pelvic ring injury with superior and inferior ramus fractures and zone 1 sacrum fracture. PLAN: Long discussion was had with the patient and family regarding diagnosis and treatment options. We will plan on treating both these injuries conservatively. In regards to his pelvis, this is a stable injury that he should be able to weight bear as tolerated through. 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 He can continue to weight bear as tolerated on the left lower extremity. We will get physical therapy to work with him on gait training and mobilization. He may need to use a platform rolling walker for balance as this may help him mobilize. I want him to be on chemical deep vein thrombosis prophylaxis for about 6 weeks. He is currently on Eliquis; I encourage him to continue taking this for at least the next 6 weeks. In regards to the left wrist, we will place him into a short-arm cast today. I told him if we can continue to keep the fracture aligned how it is today, then we should be able to treat this nonoperatively. I will want to follow him closely for the first 2 to 3 weeks to ensure no further displacement of the fracture. If he does lose reduction of his fracture, then he likely will need to undergo open reduction, internal fixation, however not at this time. I will plan on seeing him back in clinic in 1 week with repeat x-rays of the wrist. We will also follow him in clinic for his pelvic ring injury as well. Thank you for the consultation. I also encouraged him to ice and elevate the hand to help the swelling.
[2019-09-05] MEDS: DILAUDID IV PRN ×7 (03:27→21:11)
[2019-09-05] MEDS: XANAX PO PRN ×2 (07:39→16:13)
[2019-09-05 07:51] LABS: AGAP 12; ALBUMIN 2.8 g/dL (3.5-5.0); ALKALINE PHOSPHATASE 99 U/L (32-122); BUN 11 mg/dL (8-22); CALCIUM 7.7 mg/dL (8.8-10.2); CHLORIDE 105 mmol/L (98-107); CHOLESTEROL 100 mg/dL (0-200); COSMO 272; CREATININE 0.7 mg/dL (0.7-1.2); ESTIMATED GFR > 60; GLUCOSE 85 mg/dL (70-104); GOT 177 U/L (10-34); GPT 293 U/L (10-44); HDL 36 mg/dL (35-55); LDL 41 mg/dL; POTASSIUM 4.2 mmol/L (3.5-5.1); SODIUM 137 mmol/L (136-145); TCO2 20 mmol/L (25-35); TOTAL BILIRUBIN 0.75 mg/dL (0.20-1.00); TOTAL PROTEIN 5.6 g/dL (6.3-8.3); TRIGLYCERIDES 113 mg/dL (39-160); VLDL 23 mg/dL
[2019-09-05] MEDS: ELIQUIS PO SCH ×2 (08:46→21:12)
[2019-09-05] MEDS: NS 1,000 ML IV SCH ×2 (08:46→23:44)
[2019-09-05 10:55] LABS: HEPATITIS PROFILE ACUTE SEE COMMENTS
--- NOTE | 2019-09-05 12:00 | ORTHOPAEDICS PROGRESS NOTE ---
DATE: 09/05/2019 SUBJECTIVE: No acute events overnight. The patient is still reporting significant pain in his pelvis. He states his wrist feels good in a cast. OBJECTIVE: Afebrile. Vital signs stable. Examination of the left upper extremity shows short-arm cast to be intact in good repair. Neurovascularly intact. Examination of the left lower extremity shows the skin to be intact. Tender to palpation around his left hemipelvis, as well as posteriorly around the sacrum. No pain with log roll of the hip. Thigh and calf are soft and compressible. Neurovascularly intact. ASSESSMENT: A 59-year-old male with a left extra-articular distal radius fracture and a left LC-1 pelvic ring injury. PLAN: 1. The patient is weightbearing as tolerated to bilateral lower extremities. He is also weightbearing as tolerated through the elbow on his left upper extremity. Physical Therapy to work on mobilization using a platform rolling walker. 2. Eliquis for DVT prophylaxis. 3. Ice to left wrist and left hemipelvis as needed for pain. 4. Float heels. 5. Encourage the patient to get out of the bed and into the chair multiple times a day, and to pump his ankles and feet to help prevent blood clots. 6. Appreciate hospitalist recommendations. 7. Disposition per primary team. The patient will likely be discharged home from here. I will see him back in clinic in 1 week with repeat x-rays of his pelvis as well as his wrist. I told him we will keep a close eye on the wrist to ensure he does not further displace this fracture, which could require surgical intervention.
--- NOTE | 2019-09-05 15:46 | PROGRESS NOTE ---
DATE: 09/05/2019 SUBJECTIVE: Patient resting in bed. Feels better today. OBJECTIVE: Vital Signs: Temperature 98.3 degrees, pulse 101, respiratory 16, blood pressure is 121/75, oxygen saturation 100% . HEENT: Atraumatic, normocephalic. Cardiovascular: S1, S2. Respiratory: Has evidence of good entry bilaterally. Extremities: Has a cast in the left upper extremity. Central nervous system: No obvious focal deficit noted. LABORATORY DATA: Sodium is 137, potassium 4.2, chloride is 105, bicarb 20, BUN is 11, creatinine 0.7, AST 117, ALT is 293. ASSESSMENT AND PLAN: 1. Nondisplaced distal left radial fracture. Cast in place, orthopedic following. 2. Extensive fracture involving the left nadira pelvis. No surgery recommended, orthopedics following. 3. History of atrial fibrillation. Heart rate about for about 101, patient require rate- controlling agent, will continue Eliquis. cc: Lalo Chambers MD
--- NOTE | 2019-09-05 15:54 | PROGRESS NOTE ---
DATE: 09/05/2019 SUBJECTIVE: Patient is resting comfortably in bed. He feels better today. OBJECTIVE: Vital signs: Temperature 98 degrees, pulse 101, respiratory rate 16, blood pressure is 121/75, oxygen saturation is 100%. HEENT: Atraumatic, normocephalic. Cardiovascular: S1, S2. Extremities: The patient does have a cast on the left upper extremity. Central nervous system: No obvious focal deficit noted. LABS: Sodium is 137, potassium 4.2, chloride is 105, bicarb is 20, BUN is 11, creatinine 0.7., AST is 177, ALT is 293. ASSESSMENT AND PLAN: 1. Nondisplaced distal left radial fracture. The patient currently has a cast in place. Orthopedics is following. 2. Pelvic fracture. Treatment is nonsurgical. Orthopedics following. 3. Atrial fibrillation. The patient has been started on a rate control agent. Continue Eliquis. 4. History of mitral valve disease secondary to endocarditis. Aware. 5. History of chronic obstructive pulmonary disease. Stable. 6. Hypertension. Optimize blood pressure control. 7. Abnormal liver function tests. Hepatitis panel positive for hepatitis C. cc: Lalo Chambers MD
[2019-09-05] MEDS: M.V.I.-12 10 ML, FOLIC ACID 1 MG, MAGNESIUM SULFATE 1 GM, THIAMINE 100 MG in NS 1,000 ML IV SCH (21:11)
[2019-09-06] MEDS: DILAUDID IV PRN ×8 (00:14→22:27)
[2019-09-06] MEDS: XANAX PO PRN (00:14)
[2019-09-06] MEDS: CARDIZEM CD PO SCH (09:03)
[2019-09-06] MEDS: ELIQUIS PO SCH ×2 (09:03→20:28)
[2019-09-06] MEDS: NS 1,000 ML IV SCH ×2 (09:04→12:04)
[2019-09-06] MEDS: NORCO-10 PO PRN ×2 (16:46→20:35)
--- NOTE | 2019-09-06 18:57 | PROGRESS NOTE ---
DATE: 09/06/2019 INTERVAL HISTORY: The patient is beginning to work with physical therapy. Walked approximately 15 feet with walker and some assistance. Still some fairly significant pain but pretty well controlled and easing up some. No new complaints. No acute events overnight. REVIEW OF SYSTEMS: Twelve-point review of systems negative except as per interval history. VITAL SIGNS: Temperature 98.3 degrees, pulse 96, respirations 17, blood pressure 115/68, O2 saturation 100% on room air. OBJECTIVE: General: No acute distress. Vitals: As above. HEENT: Normocephalic, atraumatic. Moist mucous membranes. Cardiovascular: Regular rate and rhythm. No murmurs noted. Pulmonary: Clear to auscultation bilaterally. Abdomen: Soft, nontender, nondistended. Bowel sounds positive. Extremities: Peripheral pulses intact. Left lower arm in cast. No clubbing or cyanosis. Neurologic: Cranial nerves grossly intact. No focal deficits found. Psychiatric: Normal mood and affect. Asleep but easily arousable, cooperative, oriented. ASSESSMENT AND PLAN: 1. Nondisplaced distal left radial fracture, pelvic fracture. This occurred after falling off a roof. Cast in place on left arm. He has been evaluated by orthopedics. They plan on nonsurgical treatment of the pelvic fracture. Beginning to walk but still requiring fairly significant assistance walking only short distances. Ideally would send to rehab, but patient is self-pay so it is likely not an option. We will try to get him walking with a walker without assistance and then plan on discharge home. Has been on IV Dilaudid thus far. We will go ahead and start some p.o. pain medication and begin the process of transitioning him over and off of the IV narcotics. Discussed this with the patient. 2. Chronic obstructive pulmonary disease. No sign of exacerbation at this time. 3. Hypertension. Good control currently on just diltiazem. Monitor. 4. History of paroxysmal atrial fibrillation. Has been largely normal sinus rhythm here. Continue home Cardizem and Eliquis. 5. Elevated liver function tests. Bilirubin was a little up on admission but is normalized now. Liver function tests significantly improved. Hepatitis panel did come back reactive for hepatitis C. Discussed with patient. This can be followed up as an outpatient.
[2019-09-06] MEDS: M.V.I.-12 10 ML, FOLIC ACID 1 MG, MAGNESIUM SULFATE 1 GM, THIAMINE 100 MG in NS 1,000 ML IV SCH (20:28)
[2019-09-07] MEDS: DILAUDID IV PRN ×5 (02:11→21:22)
[2019-09-07] MEDS: CARDIZEM CD PO SCH (08:41)
[2019-09-07] MEDS: NORCO-10 PO PRN ×4 (08:41→23:12)
[2019-09-07] MEDS: ELIQUIS PO SCH ×2 (08:41→20:34)
[2019-09-07] MEDS: NS 1,000 ML IV SCH (10:28)
[2019-09-07 11:47] LABS: HCV BY PCR SEE COMMENTS
--- NOTE | 2019-09-07 14:16 | PROGRESS NOTE ---
DATE: 09/07/2019 INTERVAL HISTORY: The patient progressing slowly with physical therapy. Still requiring a fair amount of assistance to ambulate and ambulating only short distances. Pain is reasonably well controlled. No acute events. No new complaints overnight. LABORATORY: Hepatitis C screen positive. Hepatitis C PCR positive. OBJECTIVE: Vitals: T-max 99.4 degrees, pulse 98, respirations 22, blood pressure 118/75, and O2 saturation 100% on room air. General: No acute distress. Vitals: As above. HEENT: Normocephalic, atraumatic. Moist mucous membranes. Cardiovascular: Regular rate and rhythm. No murmurs noted. Pulmonary: Clear to auscultation bilaterally. No wheezing, rales, or rhonchi. Abdomen: Soft, nontender, nondistended. Bowel sounds positive. Extremities: Peripheral pulses intact. Left lower arm remains in cast. No clubbing or cyanosis. Neurologic: Cranial nerves grossly intact. No focal deficits found. Psychiatric: Normal mood and affect. Awake, alert, and oriented x3. ASSESSMENT/PLAN: 1. Nondisplaced distal left radial fracture, pelvic fracture. This occurred after a fall off of a roof. Cast in place on left arm. Orthopedic planning on nonsurgical treatment of all these fractures assuming further displacement does not occur. The patient walking a little bit, but requiring a walker and a fair amount of assistance, and going very short distances. Ideally, would send to rehab but the patient is self pay so that is likely not an option. Weaning him off IV narcotics. Once we can get him taking p.o. pain medicine and ambulating with a walker without significant assistance, he will likely discharge home. 2. Chronic obstructive pulmonary disease. No sign of exacerbation at this time. 3. Hypertension reasonable control on current diltiazem. Continue to monitor. 4. History of paroxysmal atrial fibrillation, has been normal sinus rhythm here but continuing Cardizem and Eliquis. 5. Chronic hepatitis C. Bilirubin and LFTs a little bit up on admission. Essentially normalized now, but hepatitis C test is positive.
[2019-09-07] MEDS: M.V.I.-12 10 ML, FOLIC ACID 1 MG, MAGNESIUM SULFATE 1 GM, THIAMINE 100 MG in NS 1,000 ML IV SCH (20:34)
[2019-09-08] MEDS: DILAUDID IV PRN ×4 (03:44→21:09)
[2019-09-08] MEDS: NORCO-10 PO PRN ×4 (06:30→22:17)
[2019-09-08 07:05] LABS: BASO# 0.02 X1000 (0.0-0.2); BASO% 0.5 % (0.0-0.8); EOS# 0.18 X1000 (0.0-0.7); EOS% 4.8 % (0.0-10.0); HEMATOCRIT 28.8 % (42.0-52.0); HEMOGLOBIN 9.5 g/dL (14.0-18.0); IMM GRAN# 0.04 X1000 (0.0-0.04); IMM GRAN% 1.1 % (0.0-0.5); LYMPH% 34.9 % (20.5-51.1); MCH 34.3 PG (27-31); MONO# 0.39 X1000 (0.11-0.59); MONO% 10.5 % (1.7-9.3); MPV 9.1 FL (7.4-10.4); NEUT# 1.79 X1000 (1.4-6.5); NEUT% 48.2 % (42.2-75.2); PLT 238 X1000 (130-400); RBC 2.77 XMIL (4.7-6.1); RDW 16.5 % (11.5-14.5); WBC 3.72 X1000 (4.8-10.8)
[2019-09-08 07:17] LABS: AGAP 9; BUN 13 mg/dL (8-22); CALCIUM 8.1 mg/dL (8.8-10.2); CHLORIDE 99 mmol/L (98-107); COSMO 269; CREATININE 0.7 mg/dL (0.7-1.2); ESTIMATED GFR > 60; GLUCOSE 107 mg/dL (70-104); POTASSIUM 4.4 mmol/L (3.5-5.1); SODIUM 134 mmol/L (136-145); TCO2 26 mmol/L (25-35)
[2019-09-08] MEDS: CARDIZEM CD PO SCH (08:41)
[2019-09-08] MEDS: ELIQUIS PO SCH ×2 (08:41→21:10)
[2019-09-08] MEDS: ATIVAN IV PRN ×4 (08:49→22:41)
[2019-09-08] MEDS: NS 1,000 ML IV SCH ×2 (12:44→18:48)
--- NOTE | 2019-09-08 17:02 | PROGRESS NOTE ---
DATE: 09/08/2019 SUBJECTIVE: The patient is resting in bed. No new complaints today. OBJECTIVE: Vital Signs: Temperature is 97.8 degrees, pulse is 99, respiratory 16, blood pressure is 105/61, oxygen saturation 100%. HEENT: Atraumatic, normocephalic. Cardiovascular: S1, S2. Respiratory System: Has evidence of good air entry bilaterally. Abdomen: Soft, nontender. No masses felt. Extremities: Patient does have a cast on the left upper extremity. Central Nervous System: No obvious focal deficit noted. LABORATORY DATA: WBC is 3.72, hematocrit is 28.8 with a platelet count of 238,000. Sodium is 134 potassium 4.4, chloride is 99, bicarb 26, BUN is 13 creatinine is 0.7. ASSESSMENT AND PLAN: 1. Nondisplaced distal left radial fracture. The patient currently has a cast in place in the region of the left upper extremity. Orthopedics following. 2. Pelvic fracture. Treatment is nonsurgical. Will need to optimize pain control. Orthopedics following. 3. Atrial fibrillation. Maintain patient on a rate-controlling agent, as well as Eliquis. 4. History of mitral valve disease secondary to endocarditis. Aware. 5. History of COPD. Nebulized bronchodilators as needed. 6. Hypertension. Optimize blood pressure control. 7. Abnormal liver function tests, most likely secondary to hep C. The patient will need followup in the outpatient. 8. Deep vein thrombosis prophylaxis. The patient is on apixaban. cc: Lalo Chambers MD
[2019-09-08] MEDS: M.V.I.-12 10 ML, FOLIC ACID 1 MG, MAGNESIUM SULFATE 1 GM, THIAMINE 100 MG in NS 1,000 ML IV SCH (20:22)
[2019-09-09] MEDS: NORCO-10 PO PRN ×5 (02:31→21:00)
[2019-09-09] MEDS: DILAUDID IV PRN ×3 (03:26→15:24)
[2019-09-09] MEDS: ATIVAN IV PRN ×4 (08:00→20:59)
[2019-09-09] MEDS: ELIQUIS PO SCH ×2 (08:34→21:00)
[2019-09-09] MEDS: CARDIZEM CD PO SCH (08:34)
[2019-09-09] MEDS: NS 1,000 ML IV SCH ×2 (12:01→12:04)
--- NOTE | 2019-09-09 12:30 | PROGRESS NOTE ---
DATE: 09/09/2019 SUBJECTIVE: Patient resting in bed. No new complaints today. OBJECTIVE: Vital signs: Temperature 98.3 degrees, pulse 89, respiratory rate 16, blood pressure 120/76, oxygen saturation 100%. HEENT: Atraumatic, normocephalic. Cardiovascular system: S1, S2. Respiratory system: Has evidence of good air entry bilaterally. Abdomen: Soft, nontender. No masses felt. Extremities: No evidence of edema. Central nervous system: No obvious focal deficit noted. LABORATORY DATA: None. ASSESSMENT AND PLAN: 1. Nondisplaced distal left radial fracture. The patient currently has a cast in place on the left upper extremity. Orthopedics is following. 2. Pelvic fracture. Treatment is nonsurgical. Optimize pain control. Orthopedic following. 3. Atrial fibrillation. Maintain patient on rate-controlling agent as well as Eliquis. 4. History of mitral valve disease secondary to endocarditis. Aware. 5. History of chronic obstructive pulmonary disease. Nebulized bronchodilators as needed. 6. Hypertension. Optimize blood pressure control. 7. Abnormal liver function tests. Most likely secondary to hepatitis C. The patient will need to follow up in the outpatient. 8. Deep vein thrombosis prophylaxis. The patient is on apixaban. 9. Disposition. The patient can be discharged home tomorrow with [facility]. Patient is uninsured. cc: Lalo Chambers MD MTDD
[2019-09-10] MEDS: M.V.I.-12 10 ML, FOLIC ACID 1 MG, MAGNESIUM SULFATE 1 GM, THIAMINE 100 MG in NS 1,000 ML IV SCH ×2 (00:18→21:38)
[2019-09-10] MEDS: DILAUDID IV PRN ×4 (00:18→23:12)
[2019-09-10] MEDS: NORCO-10 PO PRN ×5 (01:34→21:37)
[2019-09-10] MEDS: CARDIZEM CD PO SCH (08:34)
[2019-09-10] MEDS: ELIQUIS PO SCH ×2 (08:34→21:37)
[2019-09-10] MEDS: ATIVAN IV PRN (09:30)
[2019-09-10] MEDS: NS 1,000 ML IV SCH (10:00)
--- NOTE | 2019-09-10 18:48 | PROGRESS NOTE ---
DATE: 09/10/2019 INTERVAL HISTORY: The patient's ability to ambulate improving but still using a lot of IV narcotics for pain control. No new complaints. No acute events overnight. REVIEW OF SYSTEMS: Twelve-point review of systems negative except as per interval history. VITALS: T-max is 98.3 degrees, pulse 89, respirations 20, blood pressure 100/66, O2 saturation 100% on room air. PHYSICAL EXAMINATION: General: No acute distress. Vitals: As above. HEENT: Normocephalic, atraumatic. Moist mucous membranes. Cardiovascular: Regular rate and rhythm. No murmurs noted. Pulmonary: Clear to auscultation bilaterally. No wheezing, rales, or rhonchi. Abdomen: Soft, nontender, nondistended. Bowel sounds positive. Extremities: Peripheral pulses intact. Left arm in cast. No clubbing or cyanosis. Neurologic: Cranial nerves grossly intact. No focal deficits identified. Psychiatric: Normal mood and affect. Awake, alert, oriented x3. ASSESSMENT AND PLAN: 1. Nondisplaced distal left radial fracture, pelvic fracture occurred after a fall off a roof. Conservative treatment with cast. Patient's ability to ambulate with walker significantly improved. Moves slowly but has been able to go 160 feet with PT. Still using a lot of intravenous narcotics for pain control so we will wean both the dose and the frequency of his intravenous narcotics. If he can do okay with oral pain medication, then may be able to be discharged home tomorrow. 2. Chronic obstructive pulmonary disease. No sign of exacerbation at this time. 3. Hypertension, reasonable control on home diltiazem. Continue to monitor. 4. Paroxysmal atrial fibrillation, largely normal sinus rhythm here. Continue Cardizem and Eliquis. 5. Chronic hepatitis B. Bilirubin and LFTs slightly elevated on admission but essentially normalized later on.
[2019-09-10] MEDS: DESYREL PO PRN (21:37)
[2019-09-11] MEDS: ATIVAN IV PRN ×2 (03:11→22:11)
[2019-09-11] MEDS: DILAUDID IV PRN ×2 (07:06→15:16)
[2019-09-11] MEDS: CARDIZEM CD PO SCH (08:46)
[2019-09-11] MEDS: NORCO-10 PO PRN ×3 (08:46→22:11)
[2019-09-11] MEDS: ELIQUIS PO SCH ×2 (08:46→20:27)
[2019-09-11] MEDS ORDERED: DILAUDID IV ONE (18:00)
--- NOTE | 2019-09-11 18:03 | PROGRESS NOTE ---
DATE: 09/11/2019 SUBJECTIVE: The patient seems to be stable and it looks like he has been walking pretty good with the walker. I had a large conversation with this patient about stopping all the IV treatment together and continue with p.o. treatment, and he agreed with that. Let us see how he does without IV pain medication and we will monitor. I do believe we are going to be able to discharge this patient safely in 1 or 2 days. OBJECTIVE: Vital signs: Temperature 98.2 degrees, pulse 89, respiratory rate 18, blood pressure 104/59, oxygen saturation 100% on room air. HEENT: Head normocephalic, no trauma. PERRLA. Neck supple. No JVD. No masses. Central trachea. Chest clear to auscultation. No wheezing. No rales. Abdomen is soft, nontender, nondistended. No hepatosplenomegaly. Extremities: No edema, no clubbing, no cyanosis. He does have a left upper extremity cast. Neurological: The patient is alert, awake and oriented x3. No focal deficits. LABORATORY DATA: No lab work done today. ASSESSMENT AND PLAN: 1. Nondisplaced distal left radial fracture and pelvic fracture that happened after a fall off a roof. Conservative treatment with a cast. This patient is ambulating a little bit better with a walker. Apparently he did good today as well. He has been using a lot of intravenous narcotics, which I have stopped already after having a large conversation with this patient. Continue with p.o. treatment, though. I believe he is going to be able to be discharged in 1 or 2 days. 2. Chronic obstructive pulmonary disease, not in exacerbation. 3. Hypertension, controlled. 4. Paroxysmal atrial fibrillation. Continue with Cardizem and Eliquis. 5. Hepatitis C. I already requested the viral load but I will request the genotype. He will need to follow up with the Gastroenterology Department as an outpatient maybe in 2-4 weeks. cc: Carlos Wu MD
[2019-09-11] MEDS: NS 1,000 ML IV SCH (18:18)
[2019-09-11] MEDS: M.V.I.-12 10 ML, FOLIC ACID 1 MG, MAGNESIUM SULFATE 1 GM, THIAMINE 100 MG in NS 1,000 ML IV SCH (21:23)
[2019-09-12] MEDS: DESYREL PO PRN (00:47)
[2019-09-12] MEDS: NORCO-10 PO PRN ×3 (03:45→11:28)
[2019-09-12 07:59] LABS: AGAP 11; ALB/GLOB RATIO 0.9; ALBUMIN 3.1 g/dL (3.5-5.0); ALKALINE PHOSPHATASE 146 U/L (32-122); BUN 16 mg/dL (8-22); CALCIUM 8.6 mg/dL (8.8-10.2); CHLORIDE 101 mmol/L (98-107); COSMO 273; CREATININE 0.7 mg/dL (0.7-1.2); ESTIMATED GFR > 60; GLUCOSE 96 mg/dL (70-104); GOT 37 U/L (10-34); GPT 51 U/L (10-44); POTASSIUM 4.7 mmol/L (3.5-5.1); SODIUM 136 mmol/L (136-145); TCO2 24 mmol/L (25-35); TOTAL BILIRUBIN 0.69 mg/dL (0.20-1.00); TOTAL PROTEIN 6.7 g/dL (6.3-8.3)
[2019-09-12] MEDS: ATIVAN IV PRN ×4 (08:07→20:19)
[2019-09-12] MEDS: CARDIZEM CD PO SCH (09:38)
[2019-09-12] MEDS: ELIQUIS PO SCH ×2 (09:38→20:58)
[2019-09-12] MEDS: PERCOCET-10 PO PRN ×2 (15:55→20:19)
--- NOTE | 2019-09-12 17:38 | PROGRESS NOTE ---
DATE: 09/12/2019 SUBJECTIVE: The patient seems to be stable, but he is still complaining of pain. I have switched the Enochs for Percocet because he seems like this works better for him at least in the past. My plan is to discharge this patient in the morning. He is still complaining of severe pain, but he has been so far 10 days hospitalized. OBJECTIVE: Vital Signs: Temperature 97.9 degrees, pulse 111, respiratory rate 17, blood pressure 108/77, oxygen saturation 100% on room air. HEENT: Head normocephalic, no trauma. PERRLA. Neck: Supple. No JVD. No masses. Central trachea. Chest: Clear to auscultation. No wheezing. No rales. Abdomen: Soft, nontender, nondistended. No hepatosplenomegaly. Extremities: No clubbing, no cyanosis. He does have a left upper extremity cast and pain to palpation at the level of the inguinal area. Neurological: The patient is awake, alert, and oriented x3. No focal deficits. LABORATORY: Sodium 136, potassium 4.7, chloride 101, bicarbonate 24, BUN 16, creatinine 0.7, glucose 96, calcium 8.6, AST 37, ALT 51, alkaline phosphatase 146, albumin 3.1. ASSESSMENT AND PLAN: 1. Nondisplaced distal left radial fracture and pelvic fracture that happened after a fall off a roof. Conservative treatment with a cast. The patient is ambulating a little bit better with a walker. I will switch the p.o. Enochs for Percocet, which apparently works better for him and I will probably discharge this patient tomorrow in the morning. 2. Chronic obstructive pulmonary disease, not in exacerbation. 3. Hypertension. Controlled. 4. Paroxysmal atrial fibrillation. Continue with Cardizem and Eliquis. 5. Hepatitis C. I already requested viral load and genotypes. He will need to follow Gastroenterology Department in a couple weeks. cc: Carlos Wu MD
[2019-09-13] MEDS: PERCOCET-10 PO PRN ×3 (00:10→09:34)
[2019-09-13] MEDS: ATIVAN IV PRN ×3 (00:10→09:35)
[2019-09-13 07:22] VITALS: BP 102/66
[2019-09-13] MEDS: CARDIZEM CD PO SCH (09:28)
[2019-09-13] MEDS: ELIQUIS PO SCH (09:28)
--- NOTE | 2019-09-14 19:01 | DISCHARGE SUMMARY ---
ADMISSION DATE: 09/03/2019 DISCHARGE DATE: 09/13/2019 DISCHARGE DIAGNOSES: 1. Nondisplaced distal left radial fracture and pelvic fracture that happened after a fall off a roof. 2. Intractable pain. 3. Chronic obstructive pulmonary disease not in exacerbation. 4. Hypertension. 5. Paroxysmal atrial fibrillation. 6. Hepatitis C. HOSPITAL COURSE: A 59-year-old male with a past medical history of left sacral as well as left superior and inferior pubic rami fracture on 08/30 after a fall, left distal radius fracture as well, history of COPD, history of alcohol abuse, who presented to the emergency room on 09/03/2019 complaining of left hip inguinal area, and left wrist pain. This patient was hospitalized from 08/30 to 08/31 for the same issue, but he left AMA on the . He returned that day on the because he could not tolerate the pain. CT of the abdomen and pelvis revealed stable extensive fracture throughout the left nadira pelvis along with stable left pelvic sidewall hematoma with left wrist x-ray revealing no change in the displacement distal radius fracture. Due to extreme pain, he presented again to the emergency department, and he was admitted. The patient denied recent alcohol use, and he was basically getting treatment on a daily basis with pain medication. Orthopedic Surgery evaluated this patient, and they decided to go ahead and put a cast on the left upper extremity and also continue with physical therapy. Actually, this patient was doing good with pain though, but he was able to tolerate walking with a walker that has been provided by the hospital, and he can go home with. He was not tolerating [place], and was switched to Percocet. This medication seems to be helping him better. I stopped the IV treatment 2 or 3 days ago because he was getting IV treatment on a daily basis multiple times a day so I will try to wean this patient off treatment. He will go home with some narcotics, and I told him that he needs to start doing more physical activity, and try to wean himself off these medications. He does have an appointment on 09/15/2019 at 9:45 in the morning with Dr. Edison Ramos to check again his fractures. Also, because of his hepatitis C, he has a consult with Dr. Allen on 09/30/2019 at 3:00 in the afternoon. Also, I recommended him to call his primary care provider so he can get an appointment with him. I asked for his hepatitis C viral load and genotypes so once he goes with Gastroenterology, he has already everything planned to be treated. The patient seems to be doing better. He is tolerating p.o. He is ambulating with some pain, but he will be discharged with pain medication. PHYSICAL EXAMINATION: Vital Signs: Temperature 98 degrees, pulse 95, respiratory rate 16, blood pressure 102/66, and oxygen saturation 100% on room air. HEENT: Head normocephalic. No trauma. PERRLA. Neck: Supple. No JVD. No masses. Central trachea. Chest: Clear to auscultation. No wheezing. No rales. Abdomen: Soft, nontender, and nondistended. No hepatosplenomegaly. Extremities: Left upper extremity cast. No edema. No clubbing. No cyanosis. Neurological: The patient is awake and alert. He is oriented x3. No focal deficits. LABORATORY: No lab work done today. CMP yesterday showed a sodium 136, potassium 4.7, chloride 101, bicarbonate 24, BUN 16, creatinine 0.7 glucose 96, calcium 8.6, AST 37, ALT 51, and alkaline phosphatase 146. DISCHARGE FOLLOW UP: We have recommended this patient to follow up with Cardiology Department. 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 He has been doing good during this hospitalization with diltiazem 120 mg p.o. daily and Eliquis as well which again he decided to stop before. I had a really large conversation with this patient about this treatment, and he seems to understand that he needs to be compliant with the medications. DISCHARGE MEDICATIONS: 1. Eliquis 500 mg p.o. b.i.d. 2. Diltiazem 120 mg p.o. daily. 3. Percocet 10 one tablet p.o. q.6 hours as needed for pain x20 pills. 4. Trazodone 25 mg p.o. at bedtime as needed x10 pills. TIME SPENT: Time discharging this patient 32 minutes. cc: Carlos Wu MD
[2019-09-15 22:15] LABS: HCV GENOTYPE RESOLUTION SEE COMMENTS; HEPATITIS C GENOTYPE SEE COMMENTS
== END 2019-09-13 09:57 | disposition home or self-care (01) | DRG 560 ==
LOC: ED 11:09 → 4N 18:47 → SUATTDRO 18:47 → 4N 19:25
PROVIDERS: ATTEND Internal Medicine

== ENCOUNTER 2019-09-15 12:48 | Inpatient (IN) ==
[2019-09-15] MEDS ORDERED: ASPIRIN PO ONE (13:31)
--- NOTE | 2019-09-15 13:46 | EKG Report ---
Test Performed on : 09/15/2019 1:00:03 PM Test Reason : palpitations Blood Pressure : / mmHG Vent. Rate : 123 BPM Atrial Rate : 156 BPM P-R Int : 000 ms QRS Dur : 080 ms QT Int : 330 ms P-R-T Axes : 000 087 071 degrees QTc Int : 472 ms Atrial fibrillation. with rapid ventricular response. Abnormal ECG When compared with ECG of 03-SEP-2019 12:53, (Unconfirmed) Nonspecific T wave abnormality now evident in Inferior leads Unconfirmed Result
[2019-09-15] MEDS ORDERED: CARDIZEM IV ONE (14:12)
[2019-09-15] MEDS ORDERED: ZOFRAN IV ONE (14:13)
[2019-09-15 14:33] LABS: BASO# 0.02 X1000 (0.0-0.2); BASO% 0.5 % (0.0-0.8); EOS# 0.03 X1000 (0.0-0.7); EOS% 0.7 % (0.0-10.0); HEMATOCRIT 34.3 % (42.0-52.0); HEMOGLOBIN 11.6 g/dL (14.0-18.0); LYMPH# 1.16 X1000 (1.2-3.4); LYMPH% 26.7 % (20.5-51.1); MCHC 33.8 g/dL (33-37); MCV 103.6 FL (81-99); MONO# 0.44 X1000 (0.11-0.59); MONO% 10.1 % (1.7-9.3); MPV 9.3 FL (7.4-10.4); PLT 281 X1000 (130-400); RBC 3.31 XMIL (4.7-6.1); RDW 15.6 % (11.5-14.5); WBC 4.35 X1000 (4.8-10.8)
[2019-09-15 14:55] LABS: AGAP 12; ALB/GLOB RATIO 1.1; ALBUMIN 3.9 g/dL (3.5-5.0); ALKALINE PHOSPHATASE 192 U/L (32-122); BUN 18 mg/dL (8-22); CALCIUM 8.8 mg/dL (8.8-10.2); CHLORIDE 98 mmol/L (98-107); CK PROFILE 52 U/L (24-204); COSMO 272; CREATININE 0.9 mg/dL (0.7-1.2); ESTIMATED GFR > 60; GLUCOSE 97 mg/dL (70-104); GOT 47 U/L (10-34); GPT 44 U/L (10-44); POTASSIUM 4.9 mmol/L (3.5-5.1); SODIUM 135 mmol/L (136-145); TCO2 25 mmol/L (25-35); TOTAL BILIRUBIN 0.68 mg/dL (0.20-1.00); TOTAL PROTEIN 7.3 g/dL (6.3-8.3)
[2019-09-15] MEDS ORDERED: TYLENOL PO ONE (15:01)
--- NOTE | 2019-09-15 15:16 | Diag Imaging Result Doc PS360 ---
EXAM: CHEST-2 VIEWS 09/15/2019 HISTORY: palpitations TECHNIQUE: PA and lateral chest COMMENT: There are sternotomy wires and there is a mitral valve prosthesis. There is no evidence of acute cardiac or pulmonary disease. Compared to 09/03/2019 there has been no significant change. IMPRESSION: No evidence of acute disease. Electronically signed by Italo Pelletier 09/15/2019 3:14 PM
[2019-09-15 15:46] LABS: PROTIME 13.3 Seconds (11.0-16.0)
[2019-09-15 15:47] LABS: PTT 35.4 Seconds (22.3-41.8)
[2019-09-15] MEDS ORDERED: MORPHINE IV ONE ×2 (15:54→20:50)
[2019-09-15] MEDS ORDERED: NS 1,000 ML IV ONE ×2 (15:55→21:06)
[2019-09-15] MEDS: CARDIZEM 100 MG/NS 100 MG/100 ML IVPB IV SCH (17:36)
--- NOTE | 2019-09-15 17:57 | Diag Imaging Result Doc PS360 ---
EXAM: CT ABD/PELVIS/PULM ARTERIES INDICATION: elev d-dimer,SOB,cp,epigastric pain/tenderness TECHNIQUE: This exam was performed using automated exposure control, adjustment of mA or kV according to patient size, and/or use of iterative reconstruction technique. Thin section axial images through the chest and 3-D MIPS were obtained. Conventional axial images and coronal reformations through the abdomen and pelvis were obtained. COMPARISON: CT abdomen and pelvis dated 09/03/[address] chest, abdomen, and pelvis dated 08/30/2019 FINDINGS: CTA CHEST: There is no evidence of pulmonary embolism. There is no evidence of aortic dissection or aneurysm. There is no evidence of significant mediastinal or hilar lymphadenopathy. There is mild subsegmental atelectasis at the lung bases. There is no pleural fluid collection and no pneumothorax. ABDOMEN/PELVIS: The gallbladder is unremarkable. The common bile duct and hepatic ducts are somewhat dilated with the common bile duct measuring up to 9.8 mm in diameter. However, this is essentially stable as compared to the previous study. The pancreatic duct is also mildly prominent. The liver parenchyma is unremarkable. The spleen, pancreas, adrenal glands, kidneys, and urinary bladder are grossly unremarkable. There is an aging left pelvic sidewall hematoma that is approximately stable in size but less dense than the previous study. It measures up to 4.9 x 3.0 cm axially. There are nonspecific air-filled loops of small bowel throughout the abdomen with only mild distention. This is nonspecific but could represent ileus, possibly related to enteritis. However, no definite bowel wall thickening is identified. There is nothing that would necessarily indicate obstruction. The remainder of the GI tract is essentially unremarkable. There are no pelvic fractures bilaterally, more extensive on the left and a known left sacral alar fracture. These are showing signs of healing with callus formation that has developed since the previous study. IMPRESSION: 1.No evidence of pulmonary embolism or other definite acute chest pathology. 2.Aging left pelvic sidewall hematoma that is similar in size but less dense than the previous study. 3.Sacral and pelvic fractures that are showing signs of healing when compared to the previous study. 4.Multiple nonspecific gas-filled loops of small bowel throughout the abdomen with only mild distention. Consider ileus, possibly related to enteritis. There is nothing that would necessarily suggest obstruction. Electronically signed by Amilcar Meléndez 09/15/2019 5:54 PM
--- NOTE | 2019-09-15 20:23 | PROVIDER DOCUMENTATION ---
This chart was entered by Lennie Bahena Scribe, acting as scribe for Jose Martin Coffey CRNP. HPI-Chest Pain - General Chief Complaint: Palpitations Stated Complaint: CP,SOB Time Seen by Provider: 09/15/19 13:09 Source: patient Allergies/Adverse Reactions: Patient Allergies Allergy/AdvReac Type Severity Reaction Status Date / Time No Known Allergies Allergy Verified 09/15/19 13:57 - History of Present Illness-CP Nature of Presenting Problem: Patient is a 59 year old male who presents with chest pain and SOB that began today. States pain starts in epigastric region and radiates to lower abdomen. Reports nausea also. Denies any other complaints. Pt is non-toxic in appearance. Location: reports: epigastric Chest Pain Radiation: reports: other (lower abdomen) Quality of Pain: reports: aching Severity in ED: mild Onset/Duration: this morning Timing: still present Context/Activities at Onset: reports: light activity Modifying Factors: worse with: lying down Associated Symptoms: reports: nausea, shortness of breath Similar Symptoms Previously?: No Recently Seen Here or By Another Healthcare Provider: No Review of Systems - Adult - REVIEW OF SYSTEMS - ADULT Constitutional: reports: no symptoms reported Eyes: reports: no symptoms reported Ears, Nose, Mouth & Throat: reports: no symptoms reported Cardiovascular: reports: no symptoms reported Respiratory: reports: see HPI, shortness of breath Gastrointestinal: reports: see HPI, abdominal pain (epigastric), nausea. denies: vomiting Genitourinary: reports: no symptoms reported Musculoskeletal: reports: no symptoms reported Integumentary: reports: no symptoms reported Neurological: reports: no symptoms reported Psychiatric: reports: no symptoms reported Endocrine: reports: no symptoms reported Hematologic/Lymphatic: reports: no symptoms reported Allergic/Immunologic: reports: no symptoms reported All Other Systems: Reviewed and Negative Past History - Adult - PAST MEDICAL HISTORY-ADULT Review of Records: reports: Old Records Reviewed, Nursing Assessment Review, Medications Reviewed, Social history reviewed & non-contributory. Major Childhood Illnesses: reports: denies history Cardiovascular: reports: A-Fib, CHF, HTN Respiratory: reports: COPD Gastrointestinal: reports: denies history Obstetrical/Gynecological: reports: denies history Genitourinary: reports: denies history Musculoskeletal: reports: denies history Neurological: reports: denies history Psychiatric: reports: denies history Endocrine/Immune: reports: denies history Other Conditions: reports: denies history - PRIOR SURGERIES/PROCEDURES Surgical/Procedure History: reports: none - IMMUNIZATION STATUS Childhood Immunizations: See Nurse Assessment Flu Vaccine: See Nurse Assessment - FAMILY HISTORY Family History: reviewed, not pertinent - SOCIAL HISTORY Smoking: cigarettes, less than 1 pack/day Provider spent 3-5 mins advising pt. on dangers of tobacco.: Discussed manners to quit use, and f/u contacts for add'l counseling. Substance Use: none presently/history of abuse, alcohol Alcohol Use Frequency: sober (former use) Physical Exam-General - PHYSICAL EXAM-ADULT Initial Vital Signs Reviewed: Yes - CONSTITUTIONAL General Appearance: alert, no apparent distress. negative: lethargic, slow to respond - EYES Eyes: PERRL/EOMI, pink conjunctivae - HEAD, EARS, NOSE, MOUTH & THROAT HENMT: normocephalic/atraumatic, moist mucous membranes. negative: angioedema - NECK Neck: non-tender, full range of motion, supple, normal inspection. negative: limited range of motion - RESPIRATORY Respiratory: chest non-tender, lungs clear, normal breath sounds, no respiratory distress, no accessory muscle use. negative: crackles, wheezing - CARDIOVASCULAR Cardiovascular: no gallop, no murmur, tachycardia, irregularly irregular. negative: systolic murmur - GASTROINTESTINAL (ABDOMEN) Abdominal Exam: normal bowel sounds, soft, tenderness (epigastric region). negative: rigid, hernia, mass - MUSCULOSKELETAL Back Exam: normal inspection Extremity: normal range of motion, non-tender, normal inspection. negative: pedal edema - SKIN Integumentary: normal color, warm/dry. negative: cyanosis, diaphoresis, jaundice, mottled, pallor - NEUROLOGIC Neurologic: grossly normal, no motor/sensory deficits. negative: aphasia, facial droop - PSYCHIATRIC Psych/Mental Status: normal mood/affect, normal thought content, normal thought process, oriented x 3. negative: anxious - HEART Score HEART Score: History: Slightly Suspicious HEART Score: ECG: Non-Specific Repolarization Disturbance/LBBB/PM HEART Score: Age: 45-65 Years HEART Score: Risk Factors for Atherosclerotic Disease: 1 or 2 Risk Factors HEART Score: Troponin: < or = Normal Limit Total HEART Score:: 3 Progress - PLAN OF CARE/RESULTS Progress/Plan/Lab Results: Vital Signs - 8 hr 09/15/19 13:06 09/15/19 13:08 09/15/19 13:30 Temperature 98.4 F Pulse Rate 123 H 122 H 105 H Respiratory Rate 16 20 20 Blood Pressure 122/81 119/69 111/70 O2 Sat by Pulse Oximetry 100 100 99 09/15/19 14:00 09/15/19 14:30 09/15/19 14:31 Temperature Pulse Rate 117 H 107 H 101 H Respiratory Rate 18 20 19 Blood Pressure 105/85 117/79 117/79 O2 Sat by Pulse Oximetry 100 100 100 09/15/19 14:45 09/15/19 15:29 09/15/19 15:57 Temperature Pulse Rate 91 H 100 H 97 H Respiratory Rate 19 19 20 Blood Pressure 116/71 119/75 108/69 O2 Sat by Pulse Oximetry 100 99 100 09/15/19 16:00 09/15/19 16:28 09/15/19 16:30 Temperature Pulse Rate 97 H 108 H 111 H Respiratory Rate 19 19 19 Blood Pressure 113/72 106/72 104/64 O2 Sat by Pulse Oximetry 96 100 99 09/15/19 16:59 09/15/19 17:00 09/15/19 17:30 Temperature Pulse Rate 103 H 89 86 Respiratory Rate 18 19 17 Blood Pressure 115/71 113/64 119/78 O2 Sat by Pulse Oximetry 100 100 100 09/15/19 17:35 09/15/19 18:00 09/15/19 18:30 Temperature Pulse Rate 101 H 88 92 H Respiratory Rate 22 18 17 Blood Pressure 119/78 110/71 106/69 O2 Sat by Pulse Oximetry 100 100 100 09/15/19 19:00 Temperature Pulse Rate 74 Respiratory Rate 19 Blood Pressure 105/55 O2 Sat by Pulse Oximetry 94 L Laboratory Results - last 24 hr 09/15/19 09/15/19 09/15/19 14:12 14:12 14:12 WBC 4.35 L RBC 3.31 L Hgb 11.6 L Hct 34.3 L MCV 103.6 H MCH 35.0 H MCHC 33.8 RDW Std Deviation 15.6 H Plt Count 281 MPV 9.3 Immature Gran % (Auto) 0.0 Neut % (Auto) 62.0 Lymph % (Auto) 26.7 [place] % (Auto) 10.1 H Eos % (Auto) 0.7 Baso % (Auto) 0.5 Immature Gran # (Auto) 0.00 Neut # (Auto) 2.70 Lymph # (Auto) 1.16 L [place] # (Auto) 0.44 Eos # (Auto) 0.03 Baso # (Auto) 0.02 PT INR PTT (Actin FS) D-Dimer, Quantitative Sodium 135 L Potassium 4.9 Chloride 98 Carbon Dioxide 25 Anion Gap 12 BUN 18 Creatinine 0.9 Estimated GFR/1.73 m2 > 60 BUN/Creatinine Ratio 20 Glucose 97 Calculated Osmolality 272 Calcium 8.8 Total Bilirubin 0.68 AST 47 H ALT 44 Alkaline Phosphatase 192 H Creatine Kinase 52 Troponin T High Sens Cwr-X-Nxjyfvmqvrw Pept 659 H Total Protein 7.3 Albumin 3.9 Globulin 3.4 Albumin/Globulin Ratio 1.1 Lipase 09/15/19 09/15/19 09/15/19 14:12 14:12 15:28 WBC RBC Hgb Hct MCV MCH MCHC RDW Std Deviation Plt Count MPV Immature Gran % (Auto) Neut % (Auto) Lymph % (Auto) [place] % (Auto) Eos % (Auto) Baso % (Auto) Immature Gran # (Auto) Neut # (Auto) Lymph # (Auto) [place] # (Auto) Eos # (Auto) Baso # (Auto) PT 13.3 INR 1.00 PTT (Actin FS) 35.4 D-Dimer, Quantitative Sodium Potassium Chloride Carbon Dioxide Anion Gap BUN Creatinine Estimated GFR/1.73 m2 BUN/Creatinine Ratio Glucose Calculated Osmolality Calcium Total Bilirubin AST ALT Alkaline Phosphatase Creatine Kinase Troponin T High Sens 9 Yxd-R-Wuhxkqbhfpo Pept Total Protein Albumin Globulin Albumin/Globulin Ratio Lipase 41 09/15/19 09/15/19 15:28 19:06 WBC RBC Hgb Hct MCV MCH MCHC RDW Std Deviation Plt Count MPV Immature Gran % (Auto) Neut % (Auto) Lymph % (Auto) [place] % (Auto) Eos % (Auto) Baso % (Auto) Immature Gran # (Auto) Neut # (Auto) Lymph # (Auto) [place] # (Auto) Eos # (Auto) Baso # (Auto) PT INR PTT (Actin FS) D-Dimer, Quantitative 0.96 H Sodium Potassium Chloride Carbon Dioxide Anion Gap BUN Creatinine Estimated GFR/1.73 m2 BUN/Creatinine Ratio Glucose Calculated Osmolality Calcium Total Bilirubin AST ALT Alkaline Phosphatase Creatine Kinase Troponin T High Sens 10 Ujf-N-Jetudvxlvtl Pept Total Protein Albumin Globulin Albumin/Globulin Ratio Lipase Orders Category Date Time Status Cardiac Monitoring DIRECTED Care 09/15/19 13:32 Active Cardiac Monitoring DIRECTED Care 09/15/19 19:36 Active IV Insertion ORDERED Care 09/15/19 19:36 Completed Notify MD of + Sepsis Screen NOW Care 09/15/19 19:36 Active Notify Physician As Ordered Care 09/15/19 19:36 Active Oxygen Therapy- ED Nursing DIRECTED Care 09/15/19 13:32 Active Saline Loc NOW Care 09/15/19 13:32 Active CHEST-2 VIEWS [RAD] Stat Exams 09/15/19 13:[address] ABD/PELVIS/PULM ARTERIES [CT] Stat Exams 09/15/19 15:54 Completed BLOOD CULTURE [BLDCUL] Stat Lab 09/15/19 20:15 Ordered CBC WITH ELECTRONIC DIFF [HEME] Stat Lab 09/15/19 14:12 Completed CK PROFILE [SP CHEM] Stat Lab 09/15/19 14:12 Completed COMPREHENSIVE METABOLIC PANEL [CHEM] Stat Lab 09/15/19 14:12 Completed D-DIMER [COAG] Stat Lab 09/15/19 15:28 Completed LACTATE, PLASMA [CHEM] Lab 09/15/19 20:15 Ordered LACTATE, PLASMA [CHEM] Lab 09/15/19 22:45 Uncollected LACTATE, PLASMA [CHEM] Lab 09/16/19 01:45 Uncollected LIPASE [CHEM] Stat Lab 09/15/19 14:12 Completed PRO B-NATRIURETIC PEPTIDE Stat Lab 09/15/19 14:12 Completed PROTIME WITH INR [COAG] Stat Lab 09/15/19 15:28 Completed PTT [COAG] Stat Lab 09/15/19 15:28 Completed TROPONIN T HIGH SENSITIVITY Stat Lab 09/15/19 14:12 Completed TROPONIN T HIGH SENSITIVITY Stat Lab 09/15/19 19:06 Completed 0.9% Sodium Chloride Inj [Ns] 1,000 ml Med 09/15/19 15:55 Active IV 100 mls/hr Acetaminophen [Tylenol] Med 09/15/19 15:01 Discontinued 650 mg PO NOW ONE Aspirin Med 09/15/19 13:31 Discontinued 325 mg PO NOW ONE Diltiazem 100 mg/Ns [Cardizem 100 mg/Ns] Med 09/15/19 16:00 Active 100 mg in 100 ml IV As Directed mls/hr Diltiazem [Cardizem] Med 09/15/19 14:12 Discontinued 10 mg IV NOW ONE Morphine Med 09/15/19 15:54 Discontinued 2 mg IV NOW ONE Ondansetron [Zofran] Med 09/15/19 14:13 Discontinued 4 mg IV NOW ONE CP/SOB/Palp >45 yrs of Age Stat Oth 09/15/19 13:31 Ordered EKG [EKG] Stat Ther 09/15/19 13:32 Draft EKG [EKG] Stat Ther 09/15/19 16:33 Ordered Result Diagrams: 09/15/19 14:12 09/15/19 14:12 - EKG 1 Time of EKG reading by physician:: 13:00 EKG Read and Signed by:: Balaji Ramos EKG Interpretation (*Must complete 3 of following elements*): Abnormal Rate: 123 Rhythm: atrial fibrillation with rapid ventricular response [place]: normal Comments: abnormal ECG 2 Time of EKG reading by physician:: 17:59 EKG Read and Signed by:: Balaji Ramos EKG Interpretation (*Must complete 3 of following elements*): Abnormal Rate: 100 Rhythm: atrial fibrillation QRS: normal ST Wave: normal Prior EKG Comparison: changes noted - CT/MRI 1 CT Study: Abdomen, Pelvis, Thorax ([facility] - [address] [facility] [address] [address] [facility] - [address] [place] [address] Department of Imaging Patient: JORDIN ALVAREZ [facility] Date: 09/15/19#: [id number] : 1960DM Status: [facility]#: [id number] Age/Sex: 59/MRoom/Bed: Loc: ED Ordering Physician: Jose Martin Coffey Family Physician: Bob Alejandra MD Reason for Procedure: elev d- dimer,SOB,cp,epigastric pain/tenderness __ _ Signed EXAM: CT ABD/PELVIS/PULM ARTERIES INDICATION: elev d- dimer,SOB,cp,epigastric pain/tenderness TECHNIQUE: This exam was performed using automated exposure control, adjustment of mA or kV according to patient size, and/or use of iterative reconstruction technique. Thin section axial images through the chest and 3-D MIPS were obtained. Conventional axial images and coronal reformations through the abdomen and pelvis were obtained. COMPARISON: CT abdomen and pelvis dated 09/03/[address] chest, abdomen, and pelvis dated 08/30/2019 FINDINGS: CTA CHEST: There is no evidence of pulmonary embolism. There is no evidence of aortic dissection or aneurysm. There is no evidence of significant mediastinal or hilar lymphadenopathy. There is mild subsegmental atelectasis at the lung bases. There is no pleural fluid collection and no pneumothorax. ABDOMEN/PELVIS: The gallbladder is unremarkab le. The common bile duct and hepatic ducts are somewhat dilated with the common bile duct measuring up to 9.8 mm in diameter. However, this is essentially stable as compared to the previous study. The pancreatic duct is also mildly prominent. The liver parenchyma is unremarkable. The spleen, pancreas, adrenal glands, kidneys, and urinary bladder are grossly unremarkable. There is an aging left pelvic sidewall hematoma that is approximately stable in size but less dense than the previous study. It measures up to 4.9 x 3.0 cm axially. There are nonspecific air-filled loops of small bowel throughout the abdomen with only mild distention. This is nonspecific but could represent ileus, possibly related to enteritis. However, no definite bowel wall thickening is identified. There is nothing that would necessarily indicate obstruction. The remainder of the GI tract is essentially unremarkable. There are no pelvic fractures bilaterally, more extensive on the left and a known left sacral alar fracture. These are showing signs of healing with callus formation that has developed since the pre vious study. IMPRESSION: 1.No evidence of pulmonary embolism or other definite acute chest pathology. 2.Aging left pelvic sidewall hematoma that is similar in size but less dense than the previous study. 3.Sacral and pelvic fractures that are showing signs of healing when compared to the previous study. 4.Multiple nonspecific gas-filled loops of small bowel throughout the abdomen with only mild distention. Consider ileus, possibly related to enteritis. There is nothing that would necessarily suggest obstruction. Electronically signed by Amilcar Meléndez 09/15/2019 5:54 PM 09/15/19 1754 Interpreting Physician: Amilcar Meléndez MD Dictated Date/Time: 09/15/19 1739 cc: Jose Martin Coffey; Bob Alejandra MD) - CONSULTS/PCP/HOSPITALIST Notification #1 *Consult/PCP/Hospitalist*: Dr. Riley Time Discussed: 19:49 Reason/Comments: admission- SOB, abd pain, A. Fib with RVR Consult Disposition: Admit Departure - Departure Date of Disposition Decision: 09/15/19 Time of Disposition Decision: 19:48 DIAGNOSIS: SOB (shortness of breath), Enteritis, Ileus, Atrial fibrillation with RVR Abdominal pain Qualifiers: Abdominal location: unspecified location Qualified Code(s): R10.9 - Unspecified abdominal pain Disposition: ADMITTED INPATIENT 09 Certified Medical Emergency: Emergent Condition: Stable Referrals and Follow-Ups: Bob Alejandra MD [Primary Care Provider] - - Critical Care Note This patient required my direct & personal management of CC.: No Attestation - Physician/ DALIA Attestation Patient care was provided by Advanced Practice Provider:: Yes Advanced Practice Provider:: Jose Martin Coffey Advanced Practice Provider documentation review:: The Mid-level provider documentation, treatment plan and medical decision making was reviewed by the physician who agrees with all treatment and medical decision making by the [facility]. The physician spent face to face time with patient:: Yes (Dr. Ramos) Advanced Practice Provider documentation review:: Supervising physician onsite and consulted in the evaluation and care of this patient. The physician did have a face to face encounter with the patient. This chart was documented by the amaris scribe, (Lennie Bahena Scribe) and accurately reflects the services I performed and decisions made by me, Jose Martin Coffey CRNP, as attested by the provider's signature.
--- NOTE | 2019-09-15 20:48 | EKG Report ---
Test Performed on : 09/15/2019 5:59:13 PM Test Reason : CP Blood Pressure : / mmHG Vent. Rate : 100 BPM Atrial Rate : 110 BPM P-R Int : 000 ms QRS Dur : 088 ms QT Int : 362 ms P-R-T Axes : 000 077 081 degrees QTc Int : 466 ms Atrial fibrillation. Abnormal ECG When compared with ECG of 15-SEP-2019 13:00, (Unconfirmed) Nonspecific T wave abnormality no longer evident in Inferior leads Unconfirmed Result
[2019-09-15] MEDS ORDERED: ELIQUIS PO ONE (20:57)
--- NOTE | 2019-09-15 22:01 | HISTORY AND PHYSICAL ---
REASON FOR ADMISSION: Epigastric pain and shortness of breath today. HISTORY OF PRESENT ILLNESS: Mr. Desire Maldonado is a 59-year-old man who was recently discharged from our facility after falling from a roof a few weeks ago and sustaining pelvic fracture and a left wrist fracture. At the time he was discharged, he was discharged home on Eliquis for atrial fibrillation, according to the patient; however, since he has no insurance or money, he could not afford this. The patient also has a history of extensive 6 beer a day drinking and tells me that he stopped drinking since his discharge. He comes in today because he developed sudden shortness of breath with simultaneous epigastric/substernal sharp pain, which is intermittent with no specific aggravating or relieving factors. He said he had some intermittent palpitations with this and weakness. He also reports that he when he tried to get up he was feeling dizzy and was having some intermittent blurry vision with this. He denies any focal neurological symptoms whatsoever. He denies any fecal or urinary incontinence. His other major complaint is since he left the hospital he has been having groin pain which he says he believes is emanating from his pelvic fracture and radiating down to his knees on both sides. He denies any discoloration of his legs or leg swelling. No PND or orthopnea. He has an occasional cough, which is nonproductive but no fever or chills. He also denies any nausea or vomiting but says he had a few loose stools yesterday but that has since subsided. No bleeding from any orifice. REVIEW OF SYSTEMS: The patient's 12-point system review was done. Positive findings per HPI. ALLERGIES: None. HOME MEDICATIONS: The patient is supposed to be taking trazodone, oxycodone, Cardizem, Eliquis, folic acid and thiamine, but he said he has not been able to get any of these medications. SURGICAL HISTORY: He has had some mitral valve surgery, cannot specify what it was. 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 FAMILY HISTORY: No heart disease or diabetes. LABORATORY WORK: White count 4000, hemoglobin and hematocrit 11 and 34, platelets 281,000 with an MCV of 103, normal differential. Sodium is 135, BUN 18, creatinine 0.9. AST 47, ALT 44, alkaline phosphatase 192. Troponin is 10. ProBNP 659. Lactate and lipase are normal CT PE ]no evidence of dissection, PE, no pneumothorax, pneumonia. Abdomen just showed the aforementioned sacral and pelvic fractures with signs of healing compared to before. Possible enteritis noted. EKG showed atrial fibrillation, rate in the 100s on average, poor R-wave progression, questionable septal Q-waves, anteroseptal Q-waves. Nonspecific ST- wave changes. PHYSICAL EXAMINATION: VITAL SIGNS: Blood pressure is 100/60, heart rate is 86, respiration rate is 15, 100% on 2 L. Temperature is 98.4 degrees. GENERAL: He is a thin, slightly disheveled, middle-aged man who is slightly anxious in mild distress I believe from pain in his pelvis. He is alert and oriented to person, place, and time. Normal mood and affect. HEAD: Normocephalic, atraumatic. EYES: MARLE[place], EOMI. He is anicteric and not pale. ENT EXAM: Grossly normal. NECK: Supple. No JVD or carotid bruit. No thyromegaly. CHEST: Clear when auscultated. Decreased entry in both lung taylor. CARDIOVASCULAR: First and sounds heart heard. No gallops, murmurs, rubs. Rhythm is irregular. ABDOMEN: Scaphoid, soft, nontender. No organomegaly. Bowel sounds hypoactive. RECTAL EXAM: Deferred at this time. EXTREMITIES: His left forearm is in a cast, but all distal extremities and digits are warm to touch. No edema, clubbing or cyanosis. Good distal pulse volumes. NEUROLOGICAL: No gross focal deficits. No asterixis or tremors. SKIN: Intact. No breakdown, lesion or erythema. MUSCULOSKELETAL EXAM: Grossly normal. ASSESSMENT: 1. Atrial fibrillation with rapid ventricular rate. 2. Hypertension. 3. Chronic obstructive pulmonary disease. 4. Mitral valve disease. 5. Hypertension. 6. History of alcohol abuse. PLAN: The patient will be admitted to [facility] and Cardizem drip has been started. He will be slowly titrated off the drip later in the morning when oral agents have been initiated. The patient is supposed to be on Eliquis, but he said he cannot afford this. Day Care Supervisor need to be consulted to ensure the patient gets patient assistance for this. In the meantime, we will start him back on Eliquis. We will also consult Cardiology for any other additional input. The patient's pelvic pain could be inciting and triggering factor for this in addition to the patient not being able to afford his medications. We will control pain accordingly. The patient does have evidence of ileus, which I suspect could be related to pain medication he has been taking. He does not appear to be septic at all, and I am not really impressed with the finding of enteritis. His abdomen was essentially benign. Start patient also on laxatives in addition to pain control. I reviewed his old record. The patient does have folic acid deficiency, and this also needs to be addressed. cc: Karishma Riley MD MTDD
[2019-09-15] MEDS ORDERED: ZOFRAN IV PRN (22:27)
[2019-09-15] MEDS ORDERED: PERCOCET-10 PO PRN (22:27)
[2019-09-15] MEDS: POTASSIUM CHLORIDE 10 MEQ in NS 1,000 ML IV SCH (23:57)
[2019-09-16] MEDS: THIAMINE IM SCH ×2 (00:01→11:50)
[2019-09-16] MEDS: ATIVAN IV PRN ×4 (00:13→13:50)
[2019-09-16] MEDS: CARDIZEM 100 MG/NS 100 MG/100 ML IVPB IV SCH (00:15)
[2019-09-16] MEDS: MORPHINE IV PRN ×2 (05:09→11:43)
--- NOTE | 2019-09-16 07:39 | EKG Report ---
Test Performed on : 09/16/2019 07:20:53 AM Test Reason : chest pain Blood Pressure : / mmHG Vent. Rate : 073 BPM Atrial Rate : 375 BPM P-R Int : 000 ms QRS Dur : 088 ms QT Int : 384 ms P-R-T Axes : 000 062 069 degrees QTc Int : 423 ms Atrial fibrillation. Septal infarct , age undetermined Abnormal ECG When compared with ECG of 15-SEP-2019 17:59, (Unconfirmed) Septal infarct is now present QT has shortened Confirmed by Cuco CROWLEY, Kwan Goode ([id number]) on 09/17/2019 7:01:52 PM
[2019-09-16 08:16] LABS: AGAP 9; BUN 13 mg/dL (8-22); CALCIUM 8.6 mg/dL (8.8-10.2); CHLORIDE 104 mmol/L (98-107); COSMO 274; CREATININE 0.7 mg/dL (0.7-1.2); ESTIMATED GFR > 60; GLUCOSE 100 mg/dL (70-104); MAGNESIUM 1.9 mg/dL (1.5-2.7); POTASSIUM 4.6 mmol/L (3.5-5.1); SODIUM 137 mmol/L (136-145); TCO2 24 mmol/L (25-35)
[2019-09-16 08:20] LABS: BASO# 0.02 X1000 (0.0-0.2); BASO% 0.5 % (0.0-0.8); EOS# 0.07 X1000 (0.0-0.7); EOS% 1.7 % (0.0-10.0); HEMATOCRIT 33.7 % (42.0-52.0); HEMOGLOBIN 11.1 g/dL (14.0-18.0); LYMPH# 1.62 X1000 (1.2-3.4); LYMPH% 38.6 % (20.5-51.1); MCH 34.7 PG (27-31); MCHC 32.9 g/dL (33-37); MCV 105.3 FL (81-99); MONO% 9.5 % (1.7-9.3); MPV 9.4 FL (7.4-10.4); NEUT# 2.09 X1000 (1.4-6.5); NEUT% 49.7 % (42.2-75.2); PLT 260 X1000 (130-400)
[2019-09-16] MEDS: POTASSIUM CHLORIDE 10 MEQ in NS 1,000 ML IV SCH (08:42)
[2019-09-16] MEDS ORDERED: VITAMIN B-1 PO SCH (09:00)
[2019-09-16] MEDS ORDERED: FOLIC ACID PO SCH (09:00)
[2019-09-16] MEDS ORDERED: ELIQUIS PO SCH ×2 (09:00→21:00)
[2019-09-16 09:15] LABS: ATYPICAL LYMPH 5 %; BANDS 1 % (0-1); EOS 2 % (1-10); LYMPHS 25 % (21-51); MONO 6 % (1-9); SEGS 61 % (42-75)
--- NOTE | 2019-09-16 10:47 | CARDIOLOGY CONSULTATION ---
DATE: 09/16/2019 CHIEF COMPLAINT: Shortness of breath. HISTORY OF PRESENT ILLNESS: Mr. Maldonado is a 59-year-old male, who was recently discharged after a fall off his roof. He sustained some pelvic fractures and a left wrist fracture. He also has a history of mitral regurgitation with previous mitral intervention and chronic atrial fibrillation. He reports not taking his medications in the interim. Over the last several days, he has been increasingly short of breath with occasional chest discomfort. He reports no orthopnea. Again, he has not been taking his medications. He does continue to smoke, but adamantly denies alcohol intake. He has had no syncope. PAST MEDICAL HISTORY: 1. Significant for mitral valve endocarditis status post repair at [facility]. This was done in August 2018. He had plication of the P 2 segment and a 31 mm posterior annuloplasty band placed. 2. Chronic atrial fibrillation previously maintained on metoprolol 50 b.i.d. and Eliquis 5 b.i.d. 3. Chest pain with history of cardiac catheterization in September of 2017 showing normal epicardial coronaries. His ejection fraction on that study was 40%. 4. Congestive heart failure. Actually, he has had normalization of his EF by echocardiogram in July 2018. 5. Hypertension. 6. Hyperlipidemia. 7. Tobacco abuse. 8. Previous history of alcohol abuse, but since discontinuing. SOCIAL HISTORY: He continues to smoke, but does not drink any alcohol. No illicit drugs. FAMILY HISTORY: Significant for hypertension. REVIEW OF SYSTEMS: A 10 system review of systems is negative, except for those things mentioned in HPI. PHYSICAL EXAMINATION: Vital Signs: He is afebrile. Heart rate is 81, blood pressure 122/81. General: He is in no acute distress. HEENT: Oropharynx is moist. Poor dentition. Eye examination shows pink conjunctivae, white sclerae. Neck: Examination shows no obvious thyromegaly or thyroid tenderness. Cardiovascular: He sounds to be in an irregularly irregular rhythm which is consistent with his known chronic atrial fibrillation. He has no lower extremity edema. Chest: Exam is clear bilaterally. He has no increased work of breathing. Abdomen: Soft, nontender. He has no obvious organomegaly. Skin: Exam is warm and dry throughout without any rashes. Neurological: He is moving all extremities well. He has no lateralizing deficits. Psychiatric: He is alert, oriented, pleasant. He has a normal mood and affect. DATA: EKG from the 8th at 1300 hours shows rapid atrial fibrillation, rate of 123 beats per minute. Subsequent EKG on the 8th at 1759 hours shows again borderline rapid atrial fibrillation, rate of 100 beats per minute, and next EKG on the 9 at 0720 hours shows atrial fibrillation, rate of 73 beats per minute. His abdomen/pelvis CT demonstrates left pelvic sidewall hematoma that appears somewhat improved. No evidence of PE. Sacral and pelvic fractures suggesting some evidence of healing. Mild gaseous distention of the small bowel. No clear evidence of obstruction. Chest x-ray demonstrates no evidence of any acute findings. Laboratory data shows a white count of 4.2, hematocrit of 33, platelet count of 260. Sodium was 137, potassium 4.6. BUN 13, creatinine 0.7. Mag level is 1.9. Lactate 0.6. ASSESSMENT: Mr. Maldonado is a 59-year-old gentleman with persistent atrial fibrillation, previous mitral valve repair, who presents in rapid atrial fibrillation secondary to not taking medications. PLAN: We will restart him on metoprolol at 25 q. 6 hours. This is a similar dosage to his home dose. I will increase the apixaban to 5 b.i.d., which will be appropriate for his age, weight and renal function. Hopefully, we can titrate down on the Cardizem drip, and it would be reasonable to consider discharge within 24 hours if the patient's rate is better controlled. He is in chronic atrial fibrillation. Rastafari of sinus rhythm will not be pursued. cc: Nestor Witt MD
[2019-09-16] MEDS: PERICOLACE PO SCH ×2 (11:42)
[2019-09-16 13:49] VITALS: BP 126/80
[2019-09-16] MEDS ORDERED: LOPRESSOR PO SCH (14:00)
--- NOTE | 2019-09-17 16:57 | DISCHARGE SUMMARY ---
ADMISSION DATE: 09/15/2019 DISCHARGE DATE: 09/16/2019 DISCHARGE DIAGNOSES: 1. Persistent atrial fibrillation with rapid ventricular response. 2. Previous mitral valve repair, medical noncompliance and likely this is why he came in with atrial fibrillation, rapid ventricular response. 3. History of chest pain with history of cardiac catheterization in September 2017 showing normal epicardial coronary arteries, ejection fraction on that study was apparently 40%, hypertension, hyperlipidemia, tobacco abuse, history of alcohol abuse but apparently he stopped drinking already, he was recently discharged from this hospital due to intractable pain, nondisplaced distal left radial fracture and pelvic fracture that happened after a fall off a roof, history of chronic obstructive pulmonary disease and hepatitis C. HOSPITAL COURSE: A 59-year-old male recently discharged from our facility after falling from a roof a few weeks ago and sustaining pelvic fracture and left wrist fracture. The first time he left AMA but then he came back and was admitted basically because of intractable pain, as per the patient he has not been taking his medications at home and he has been very noncompliant with all of them so he was discharged home with Eliquis for atrial fibrillation and diltiazem but he could not afford those medications so he said that he has been having some intermittent palpitation and weakness, apparently he tried to get up and was feeling dizzy and was having some intermittent blurry vision with this, he was placed on diltiazem drip and also metoprolol q.6 hours. Cardiology Department evaluated this patient yesterday and it has been stated that if the heart rate has been controlled he can be discharged and his rate control was better. He is in chronic atrial fibrillation and worship of sinus rhythm will not be pursued. When I evaluated this patient in the afternoon his heart rate was in the low 100s, before that he was more relaxed but as soon as we told him that he will be discharged he became anxious and he wanted to stay 1 more day even though all the atrial fibrillation, RVR was resolved. I talked to the pillowcase sewer and we found medications for free for him and also Eliquis for a very low lobo so he can afford it, the patient seems to be stable. Vital signs are stable. The last time he was hospitalized here for pain control he spent 10 days or so. I do not think he needs to stay 1 more day especially because he has been already evaluated by Cardiology Department which I actually discussed the case with Dr. Nestor Witt before sending this patient home. At the moment of discharge this patient was in a stable medical condition, he was tolerating p.o. and basically he was at his baseline. PHYSICAL EXAMINATION: Temperature 98.1 degrees, pulse 103, respiratory rate 14, blood pressure 128/80, oxygen saturation 100% on room air. HEENT: Head normocephalic, no trauma. PERRLA. Neck: Supple. No JVD. No masses. Central trachea. Chest: Clear to auscultation. No wheezing, no rales. Cardiovascular: Irregularly irregular rate and rhythm. Abdomen: Soft, nontender, nondistended. No hepatosplenomegaly. Extremities: No edema, no clubbing, no cyanosis. Neurological: The patient is awake, alert. He is oriented x3, no deficit. He has a left arm cast. DISCHARGE MEDICATIONS: Basically he will continue with the medications that he was discharged except that I will stop the diltiazem and I will put him on metoprolol instead, home medications Eliquis 5 mg p.o. b.i.d., folic acid 1 tablet p.o. daily, metoprolol/Lopressor 50 mg p.o. b.i.d. continuously no p.r.n. this has been explained to the patient, Percocet 10 q.6 hours as needed, thiamine 1 tablet p.o. daily and trazodone 25 mg p.o. at bedtime, some of his medications were provided on his previous discharge. At this time he received the metoprolol which is going to be provided by the hospital for free through a program and the Eliquis prescription can get obtained by a program for a very low lobo around 10 dollars. As per the patient, his ex- told him that she will help him with his medications. TIME SPENT: 20 minutes. cc: Carlos Wu MD
== END 2019-09-16 14:30 | disposition home or self-care (01) | DRG 309 ==
LOC: ED 12:48 → SUATTDRO 22:28 → EDIPHOLD 22:28
PROVIDERS: ATTEND Internal Medicine